=== PATIENT | female | born 1985 | race Caucasian/White ===

== ENCOUNTER 2020-06-25 09:04 | Outpatient (REF) | payer MEDICAID, SELFPAY | END 2020-06-25 09:05 | disposition home or self-care (01) | LOC: HO.LAB 09:04 | PROVIDERS: Visit Provider Internal Medicine | DX: Z20.822 Contact with and (suspected) exposure to COVID-19 (principal) | CPT/HCPCS: 36415; C9803; U0003; U0005 ==

== ENCOUNTER 2020-09-08 15:02 | Outpatient (REF) | payer MEDICAID, SELFPAY | END 2020-09-08 15:03 | disposition home or self-care (01) | LOC: HO.XRAY 15:02 | PROVIDERS: PCP Family Medicine; Visit Provider Family Medicine | DX: Z13.89 Encounter for screening for other disorder (principal) ==

== ENCOUNTER 2020-09-09 09:02 | Outpatient (REF) | payer MEDICAID, SELFPAY ==
--- NOTE | ~2020-09-09 | XR_ITS ---
EXAMINATION: RIGHT WRIST AND RIGHT KNEE. CLINICAL INFORMATION: Pain right wrist and right knee COMPARISON: AP bilateral knee 01/31/2018 TECHNIQUE: Right knee 4 views. Right wrist 4 views FINDINGS: RIGHT WRIST: There is no visible acute fracture or dislocation. Intercarpal joint space is maintained. There is mild sclerosis of the lunate bone suspicious for avascular necrosis. The soft tissues are normal. RIGHT KNEE: Tricompartment joint space is maintained normal. No visible fracture, loose bodies or joint effusion seen. No bony erosive changes. XR/XR wrist RT min 3V IMPRESSION: Mild sclerosis of the lunate bone with minimal deformity, suspicious for avascular necrosis. Is patient on steroids correlate with MRI if patient has pain in this region. Unremarkable right knee exam.
--- NOTE | ~2020-09-09 | XR_ITS ---
EXAMINATION: RIGHT WRIST AND RIGHT KNEE. CLINICAL INFORMATION: Pain right wrist and right knee COMPARISON: AP bilateral knee 01/31/2018 TECHNIQUE: Right knee 4 views. Right wrist 4 views FINDINGS: RIGHT WRIST: There is no visible acute fracture or dislocation. Intercarpal joint space is maintained. There is mild sclerosis of the lunate bone suspicious for avascular necrosis. The soft tissues are normal. RIGHT KNEE: Tricompartment joint space is maintained normal. No visible fracture, loose bodies or joint effusion seen. No bony erosive changes. XR/XR knee RT 4V IMPRESSION: Mild sclerosis of the lunate bone with minimal deformity, suspicious for avascular necrosis. Is patient on steroids correlate with MRI if patient has pain in this region. Unremarkable right knee exam.
== END 2020-09-09 09:03 | disposition home or self-care (01) ==
LOC: HO.XRAY 09:02
PROVIDERS: PCP Family Medicine; Visit Provider Family Medicine
DX: M25.531 Pain in right wrist (principal); M25.561 Pain in right knee
CPT/HCPCS: 73110; 73564

== ENCOUNTER 2020-09-11 20:09 | Emergency (ER) | payer MEDICAID, SELFPAY ==
[2020-09-11 20:13] VITALS: BP 173/99; PULSE 99; RESP 14; TEMP 36.8; O2SAT 97; BMI 43.9
[2020-09-11 20:35] LABS: Glucose Urine UA NEG (NEG); Leukocyte Esterase Urine NEG (NEG); Nitrite Urine NEG (NEG); PH 5.5 (5.0-8.0); Specific Gravity - Urine >= 1.030 (1.005-1.025); Urine Blood TRACE (NEG); Urine Ketones NEG (NEG); Urine Protein 2+ MG/DL (NEG-TRACE)
[2020-09-11 20:36] LABS: Appearance Urine CLEAR; Color Urine YELLOW
[2020-09-11 20:42] LABS: Bacteria Urine TRACE /LPF; RBC Urine 0-2 /HPF (0); Squamous Epithelial Cell Urine 1+ /LPF; WBC Urine 0 /HPF (0-4)
--- NOTE | 2020-09-11 21:08 | ED_ITS ---
HPI - General Adult General Chief complaint: General Medical Stated complaint: BACK PAIN Time Seen by Provider: 09/11/20 21:06 Source: patient Mode of arrival: ambulatory History of Present Illness HPI narrative: 35-year-old female with history of chronic lower back pain who presents with persistent chronic lower back pain that she states is radiating into posterior aspect of bilateral lower extremities without any identified bowel or bladder dysfunction or inability to ambulate. Patient denies any associated fevers, chills, urinary pain/burning/frequency. She is 2 months and experienced high blood pressure during her which has persisted in the period and is currently on labetalol, b.i.d.. Otherwise, patient denies shortness of breath or chest pain. Related Data Allergies Allergy/AdvReac Type Severity Reaction Status Date / Time naproxen [NAPROXEN] Allergy Unknown STOMACH Verified 09/11/20 20:13 PAIN, DIARRHEA, VOMITING Review of Systems Review of Systems: Pertinent positives and negatives as stated in HPI 10 point review of systems is otherwise negative. PMFSH Past Medical History Source: nursing notes reviewed Medical History Hypertension Social History Social History Advance Directives: No Advance Directives Information Provided: Yes Patient : No Physical Exam Vital Signs: Vital Signs: Last Vital Signs Temp 98.2 F 09/11/20 20:13 Pulse 99 09/11/20 20:13 Resp 14 09/11/20 20:13 BP 173/99 H 09/11/20 20:13 Pulse Ox 97 09/11/20 20:13 Body Mass Index 43.9 VITAL SIGNS: Reviewed. GENERAL: Morbidly obese, Well developed, well nourished, mild distress. HEAD: Normocephalic/atraumatic EYES: PERRLA, EOMI OROPHARYNX: no oral lesions noted, posterior pharynx clear NECK: Supple, no adenopathy LUNGS: Normal breath sounds. No adventitious sounds or accessory muscle use. SpO2<97> CARDIOVASCULAR: Regular rate and rhythm without noted murmurs ABDOMEN: Obese, Soft, non-tender, non-distended with bowel sounds. BACK: No midline vertebral tenderness, no CVA tenderness, mild tenderness palpation right> left, straight leg test negative NEUROLOGIC: Alert and oriented x 4. Strength and sensation to light touch were grossly intact x 4. Course Course Course Narrative: 35-year-old female with history and clinical presentation consistent with chronic lower back pain with sciatica/lumbago. Will evaluate for , UTI. Informed by nursing staff that patient has eloped but on review investigations available that were completed there is no evidence of UTI or . Medical Decision Making Lab Data Labs: Lab Results 09/11/20 09/11/20 Range/Units 20:27 20:27 Urine Color YELLOW Urine Appearance CLEAR Urine pH 5.5 (5.0-8.0) Ur Specific [place] >= 1.030 H (1.005-1.025) Urine Protein 2+ H (NEG-TRACE) MG/DL Urine Glucose (UA) NEG (NEG) MG/DL Urine Ketones NEG (NEG) MG/DL Urine Blood TRACE (NEG) Urine Nitrite NEG (NEG) Ur Leukocyte Esterase NEG (NEG) Urine RBC 0-2 (0) /HPF Urine WBC 0 (0-4) /HPF Ur Squamous Epith Cells 1+ /LPF Urine Bacteria TRACE /LPF Urine Test NEGATIVE (NEGATIVE) Discharge Plan Discharge Clinical Impression: Back pain Patient Disposition: Elopement Interventions: ED Discharge Assessment Last Done: 09/11/20 22:55 Discharge Date/Time: 09/11/20 22:55
[2020-09-11 21:32] LABS: UPreg QC Valid YES; Urine Pregnancy NEGATIVE (NEGATIVE)
[2020-09-11] MEDS: Lidocaine 4 % Patch ADH..PATCH 1 PATCH TRANSDERMA (21:51)
--- NOTE | 2020-09-11 22:30 | PC.NURSE ---
Unable to locate pt, ? elopment.
== END 2020-09-11 22:55 | disposition left against medical advice (07) ==
PROVIDERS: Student in an Organized Health Care Education/Training Program; Emergency Provider Emergency Medicine; PCP Family Medicine
DX: M54.42 Lumbago with sciatica, left side (principal); M54.41 Lumbago with sciatica, right side; I10 Essential (primary) hypertension
CPT/HCPCS: 36415; 81001; 81025; 99283

== ENCOUNTER 2020-09-24 08:24 | Outpatient (REF) | payer MEDICAID, SELFPAY ==
--- NOTE | 2020-09-24 08:28 | EMG_ITS ---
Right median and ulnar motor and sensory studies were performed. Right radial sensory study was performed and paraspinal muscles were tested with a needle. IMPRESSION: This study did not reveal any significant neurological abnormality. Right Jan-Marlee anastomosis was noted, which was a normal variant. MD FAB Lemus/LÁZAROL / [id number]
== END 2020-09-24 08:25 | disposition home or self-care (01) ==
LOC: HO.NEURO 08:24
PROVIDERS: Visit Provider Family Medicine
DX: M25.531 Pain in right wrist (principal)
CPT/HCPCS: 95886; 95909

== ENCOUNTER 2020-10-07 09:08 | Outpatient (REF) | payer MEDICAID, SELFPAY | END 2020-10-07 09:09 | disposition home or self-care (01) | LOC: HO.HOSX 09:08 | PROVIDERS: Visit Provider Orthopaedic Surgery | DX: Z13.89 Encounter for screening for other disorder (principal) ==

== ENCOUNTER → 2020-11-20 10:16 | Outpatient (BNVA) | payer MEDICAID, SELFPAY | PROVIDERS: PCP Family Medicine; Visit Provider Nurse Practitioner Family | DX: M53.3 Sacrococcygeal disorders, not elsewhere classified (principal) | CPT/HCPCS: 99212 ==

== ENCOUNTER 2021-02-02 06:34 | Outpatient (REF) | payer MEDICAID, SELFPAY ==
--- NOTE | ~2021-02-02 | FL_ITS ---
EXAMINATION: XR FLUOROSCOPY WITH IMAGES CLINICAL INFORMATION: Sacrococcygeal disorder COMPARISON: None. TECHNIQUE: Fluoroscopy performed by Sudha Saavedra NP. Fluoroscopy time: 0.1 minutes DAP: 3 Gycm2 Images: 1 FINDINGS: Single image demonstrates needle placement and contrast injection over the left inferior sacroiliac joint. FL/FL guidance in treatment room IMPRESSION: Fluoroscopic guidance for left sacroiliac joint injection.
== END 2021-02-02 06:35 | disposition home or self-care (01) ==
LOC: HO.RADIR 06:34
PROVIDERS: Visit Provider Anesthesiology
DX: M53.3 Sacrococcygeal disorders, not elsewhere classified (principal)
CPT/HCPCS: 27096; J3300; Q9967

== ENCOUNTER 2021-02-08 08:14 | Emergency (ER) | payer MEDICAID, SELFPAY ==
--- NOTE | ~2021-02-08 | XR_ITS ---
EXAMINATION: XR KNEE, RIGHT CLINICAL INFORMATION: Trauma, pain COMPARISON: Radiographs right knee 09/09/2020. TECHNIQUE: Four views of the right knee. FINDINGS: There is no fracture or dislocation. Bony mineralization is normal. No visible suprapatellar effusion. Hoffa's fat pad appears normal. No joint narrowing or erosive changes. XR/XR knee RT 3V IMPRESSION: Normal right knee.
[2021-02-08 08:16] VITALS: BP 185/101; PULSE 96; RESP 18; TEMP 36.4; O2SAT 96; BMI 46.3
--- NOTE | 2021-02-08 09:20 | ED_ITS ---
HPI - Extremity Injury (Lower) General Chief Complaint: Extremity Injury, Lower Stated Complaint: knee pain Time Seen by Provider: 02/08/21 09:08 Source: patient Mode of arrival: ambulatory Limitations: no limitations History of Present Illness HPI Narrative: 35 yo female pmhx of HTN presents to the ED with right knee pain since yesterday. She states she is moving and she was stepping onto a [employer] trailer which was pretty high up she states she felt like her right knee gave out and she thought she heard a tearing noise. She reports that pain is worse with bearing weight and ambulation and better at rest. She also states it hurts to fully straighten her right knee. Her pain is like a 6/10 with ambulation. She notes mild swelling to the right knee. She denies fevers, chills, paresthesias, tingling, fall, SOB, CP complaint: knee injury (right knee pain ) Onset (ago): day(s) (2) Place: home Severity: moderate Severity scale (1-10): 6 Relieving factors: immobilization Exacerbating factors: weight bearing and movement Associated symptoms: other (tearing noise?) Other symptoms: none Related Data Home Medications Medication Instructions Recorded Confirmed labetalol 200 mg tablet 200 mg PO BID tab 11/20/20 11/20/20 Allergies Allergy/AdvReac Type Severity Reaction Status Date / Time naproxen [NAPROXEN] Allergy Unknown STOMACH Verified 02/02/21 10:50 PAIN, DIARRHEA, VOMITING Review of Systems Review of Systems: Yes all other systems are reviewed and are negative Constitutional: Constitutional: Reports no additional constitutional com plaints, Denies body ache(s), Denies chills, Denies fever(s), Denies headache(s) and Denies weakness ENT: Reports system reviewed and no additional complaints, except as documented, Denies dizziness, Denies headache(s) and Denies neck pain Cardiovascular: Cardiovascular: Reports no additional cardiovascular complai nts, Denies chest pain, Denies leg edema and Denies dyspnea Respiratory: Respiratory: Reports no additional respiratory complaints, Denies cough and Denies dyspnea Gastrointestinal: Gastrointestinal: Reports no additional gastrointestinal complaints, Denies abdominal pain, Denies diarrhea, Denies nausea and Denies vomiting Genitourinary: Genitourinary: Reports no additional female genitourinary complaints and Denies urinary incontinence Musculoskeletal: Musculoskeletal: Reports no additional musculoskeletal complaints, Denies back pain, Reports arthralgias (right knee), Reports joint swelling (right knee), Denies neck pain, Denies numbness and Denies tingling Integumentary/Breasts: Skin/Breast: Reports system reviewed and no additional complaints, except as docu and Denies rash Neurologic: Reports system reviewed and no additional complaints, except as documented, Denies Abnormal speech present, Denies dizziness, Denies headache(s), Denies numbness, Denies tingling and Denies weakness [facility] Past Medical History Attestation statement: The following information was validated with the patient. Source: old records reviewed and nursing notes reviewed Medical History Hypertension Social History Social History Advance Directives: No Patient : No Physical Exam 2 Vital Signs: Vital Signs: Last Vital Signs Temp 97.5 F 02/08/21 08:16 Pulse 96 02/08/21 08:16 Resp 18 02/08/21 08:16 BP 185/101 H 02/08/21 08:16 Pulse Ox 96 02/08/21 08:16 Body Mass Index 46.3 Const: General: cooperative, healthy appearing, comfortable and no acute distress Orientation/consciousness: patient oriented x3 Limitations: no limitations HENMT: Head: Yes normal to inspection Ears: hearing grossly normal bilaterally General nose exam: Normal external nose present Face and sinus: Yes normal facial exam Mouth: Normal oral and palatal mucosa present Throat: Yes posterior oropharynx normal Eyes: General: appearance normal, both eyes and all related structures Pupils: Equal, round and reactive pupils present Neck: Neck: Yes normal visual inspection Chest: Chest palpation & inspection: normal inspection of the chest Resp: Effort & Inspection: normal respiratory effort Auscultation: clear to auscultation bilaterally Cardio: Rate: regular rate Rhythm: regular rhythm Peripheral pulses: Peripheral pulses 2+ throughout GI: Inspection: Yes normal to inspection Palpation (GI): Soft to palpation and nontender Auscultation: normal bowel sounds Back/Spine/Pelvis: Thoracic/Lumbar Spine: thoracic and lumbar spine normal to inspection Skin: General skin exam: no rashes or lesions noted Neuro: General: patient oriented x3, no focal motor deficits and normal sensation to monofilament Cranial nerves: Yes Equal, round and reactive pupils present Cognition (Neuro): normal cognition Speech: No Abnormal speech present Gait exam (Neuro): Normal gait present Motor exam (neuro): 5/5 motor strength present throughout Extrem: Other: Positive valgus stress to right knee. Negative anterior, posterior, apley, varus. General: Yes full ROM (painful ), Yes capillary refill normal, Yes no joint enlargement (slight swelling noted to right knee), Yes no pedal edema, Yes no calf tenderness, No calf tenderness, Yes edema (right knee), Yes Limp noted, No pedal edema and No venous stasis dermatitis Course Course Course Narrative: 35 yo female with pmhx of HTN presents to the ED with right sided knee pain X2 days, she states she was stepping onto a [employer] truck and she felt like her right knee gave out she mentions she heard something tear. She did not fall but she immediately started feeling 6/10 pain and her knee began to swell. Upon physical examination patient is able to ambulate with a limp. She denies pain with palpation. Positive valgus stress to right knee. Negative anterior, posterior, apley, varus test. No signs of infection overlying the area patient is afebrile unlikely septic joint. She is currently hypertensive at this time, however, she has not taken her BP medications. She states she will take them when she gets home. Reevaluation(s) Reevaluation #1: Upon re-evaluation, patient is feeling better after Toradol.Th is is likley a right knee sprian she is safe for d.c home with and LUKE wrap, crutches. She has been educated on RICE. Time: 09:55 MDM - Extremity Injury (Lower) MDM Narrative Medical decision making narrative: This is likely a knee sprain based off of the mechanism of injury. However an Xray of the right knee has been ordered to rule out fractures. There is no overlying callor or erythema, the patient has been afebrile, unlikely this is an infectious process. Knee x-ray shows no fractures, and shows no effusion. Patient is safe for discharge home, with follow-up with PCP. Medical Records Attestation: I reviewed the patient's medical records. Lab Data Attestation: I reviewed the patient's lab results. Imaging Data Right knee xray: Attestation: I personally reviewed and interpreted this imaging study as follows: Radiologist's impression: FINDINGS: There is no fracture or dislocation. Bony mineralization is normal. No visible suprapatellar effusion. Hoffa's fat pad appears normal. No joint narrowing or erosive changes.? XR/XR knee RT 3V IMPRESSION: Normal right knee. Procedures Orthopedic Splinting/Casting Injury #1: Side: right Upper Extremity Immobilizer: Luke wrap Other Orthopedic Equipment: crutches Discharge Plan Discharge Clinical Impression: Knee sprain Qualifiers: Encounter type: initial encounter Involved ligament of knee: unspecified ligament Laterality: right Qualified Code(s): S83.91XA - Sprain of unspecified s ite of right knee, initial encounter Patient Disposition: Home, Self-Care Instructions: Knee Sprain (ED), Crutch Instructions (ED), How to Use an Elastic Bandage (ED), Swollen Knee Joint (ED), R.I.C.E. Treatment (ED) Additional Instructions: Follow up with your PCP You can take ibuprofen for pain Your X-ray showed no fracture Follow up with Orthopedics if no improvement in 2 weeks. Return to the emergency department with new or worsening symptoms Prescriptions: No Action labetalol 200 mg tablet 200 mg PO BID RF: 0 Referrals: Della Viera DO [Primary Care Provider] - 2 days Stand Alone Forms: Work/School Release Interventions: ED Discharge Assessment Last Done: 02/08/21 10:17 Discharge Date/Time: 02/08/21 10:18
[2021-02-08] MEDS: Ketorolac Tromethamine 15 MG/ML VIAL 30 MG IM (09:35)
== END 2021-02-08 10:18 | disposition home or self-care (01) ==
PROVIDERS: Emergency Provider Emergency Medicine; PCP Family Medicine
DX: S83.91XA Sprain of unspecified site of right knee, initial encounter (principal); M25.561 Pain in right knee; X50.1XXA Overexertion from prolonged static or awkward postures, initial encounter; Y93.9 Activity, unspecified; Y92.9 Unspecified place or not applicable; Y99.9 Unspecified external cause status; Z79.899 Other long term (current) drug therapy
CPT/HCPCS: 29505; 73562; 96372; 99283; 99284; J1885

== ENCOUNTER → 2021-06-01 15:10 | Outpatient (BNVA) | payer MEDICAID, SELFPAY | PROVIDERS: PCP Family Medicine; Visit Provider Nurse Practitioner Family | DX: M79.18 Myalgia, other site (principal); M54.2 Cervicalgia | CPT/HCPCS: 20552; 20553; 99212 ==

== ENCOUNTER → 2021-10-01 10:49 | Outpatient (BNVA) | payer MEDICAID, SELFPAY | PROVIDERS: PCP Family Medicine; Visit Provider Nurse Practitioner Family | DX: M79.18 Myalgia, other site (principal); M54.2 Cervicalgia | CPT/HCPCS: 20553; 99212; J2795; J3300 ==

== ENCOUNTER → 2021-12-01 13:01 | Outpatient (REF) | payer MEDICAID, SELFPAY ==
--- NOTE | 2021-12-01 13:07 | ECG_ITS ---
Hook-up date: 2021-12-01 12:23:00 Duration: 42:06:00 Test Indications: PALPITATIONS Medications: 455503 QRS complexes * Ventricular ectopics which represent % of total QRS comp. 5 Supraventricular ectopics which represent <1 % of total QRS comp. * Paced QRS complexs which represent % of total QRS comp. VENTRICULAR ECTOPY * Isolated * Bigeminal Cycles * Couplets * Runs * Beats in Runs * Beats LONGEST at * BPM at :: -- * Beats FASTEST at * BPM at :: -- SUPRAVENTRICULAR ECTOPY 3 Isolated 1 Couplets 0 Runs 0 Beats in Runs * Beats LONGEST at * BPM at :: -- * Beats FASTEST at * BPM at :: -- HEART RATES 38 MIN at 04:09:04 2021-12-02 86 AVG 127 MAX at 12:13:01 2021-12-02 LONGEST RR 2.8720 secs at 22:11:54 2021-12-01 S-T LEVELS Channel 1 - 128 mm at 12:23:00 2021-12-01 - 128 mm at 12:23:00 2021-12-01 Channel 2 - 128 mm at 12:23:00 2021-12-01 - 128 mm at 12:23:00 2021-12-01 Channel 3 - 128 mm at 03:14:21 -- - 128 mm at 03:14:21 Underlying rhythm is sinus; Averge ventricular rate 86/min; range 38-127/min; No significant ectopy, tachy or neftaly arrhythmias; Sleeptime pauses, longest 2.8sec; Patient did not report any symptoms in the diary Referred By: Della Viera Overread By: UMAIR MARROQUIN
== END ==
LOC: HO.CARD 13:01
PROVIDERS: PCP Family Medicine; Visit Provider Family Medicine
DX: R00.2 Palpitations (principal)
CPT/HCPCS: 93225; 93226

== ENCOUNTER 2022-01-25 06:05 | Outpatient (REF) | payer MEDICAID, SELFPAY ==
--- NOTE | ~2022-01-25 | FL_ITS ---
EXAMINATION: XR FLUOROSCOPY WITH IMAGES CLINICAL INFORMATION: M54.2 - Cervicalgia COMPARISON: None. TECHNIQUE: Fluoroscopy performed by Dr. Ralph Rubio. Fluoroscopy time: 0.5 minutes. Cumulative Dose: 5.89 mGy. DAP: 1.60 Gy-cm2. Images: 4. FINDINGS: There are spinal needles overlying the right lateral masses cervical spine approximately levels of C4, C5, and C6. There is contrast in the paraspinal soft tissues and nerve sheaths. No visible vascular communication. FL/FL guidance in treatment room IMPRESSION: Fluoroscopy for pain management procedure.
== END 2022-01-25 06:06 | disposition home or self-care (01) ==
LOC: HO.RADIR 06:05
PROVIDERS: Visit Provider Anesthesiology
DX: M47.812 Spondylosis without myelopathy or radiculopathy, cervical region (principal); M54.2 Cervicalgia; M79.18 Myalgia, other site; M53.3 Sacrococcygeal disorders, not elsewhere classified
CPT/HCPCS: 64490; 64491

== ENCOUNTER 2022-03-03 13:23 | Day surgery (SDC) | payer MEDICAID, SELFPAY ==
--- NOTE | 2022-03-02 09:42 | P.CONAN_ITS ---
Documented by User: Veronica Pennington NP 03/02/22 09:42 HPI - Anesthesia Eval Consult details Narrative: 36yo F for Right Cervical RFA of C4-C5-C6 medial branch PMFSH Active Problems Active Problems: All Active Problems (Updated 02/24/22 @ 14:19 by Toya Arrington, RN) Sacroiliac joint pain (Acute) Myofascial pain (Acute) Cervicalgia (Acute) Spondylosis of cervical region without myelopathy or radiculopathy (Acute) Past Medical History Medical History (Updated 02/24/22 @ 14:19 by Toya Arrington, RN) Headache Hypertension Kienb?ck's disease Migraines Obesity Palpitations Surgical History Surgical History (Updated 03/03/22 @ 14:03 by Marjorie Michael RN) History of tubal ligation Social History Social History Patient Tobacco Use Status: Never used Tobacco Second Hand Smoke Exposure: No Use of substances other than those prescribed or required for medical reasons: No Are you DNR?: No Advance Directives: No Advance Directives Information Provided: Yes Advance Directives on File: No Patient : No Meds Allergies Allergy/AdvReac Type Severity Reaction Status Date / Time naproxen [NAPROXEN] Allergy Unknown STOMACH Verified 02/02/22 13:57 PAIN, DIARRHEA, VOMITING Home Medications Medication Instructions Recorded Confirmed Last Taken Type labetalol 200 mg tablet 200 mg PO BID 11/20/20 02/24/22 03/03/22 History acetaminophen 650 mg 650 mg PO Q8H PRN Pain 06/01/21 02/24/22 Unknown History tablet,extended release (Pain Relief (acetaminophen)) methocarbamol 750 mg tablet 750 mg PO Q8H PRN Muscle Pain 06/01/21 02/24/22 Unknown History oxybutynin chloride 5 mg 5 mg PO DAILY 10/01/21 02/24/22 Unknown History tablet,extended release 24 hr Exam Exam Date and Time: March 02, [id number] Assessment and Plan Assessment Anesthesia Assessment: Chart Reviewed Documented by User: Karen Luque MD 03/03/22 15:10 PMFSH Active Problems Active Problems: All Active Problems (Updated 02/24/22 @ 14:19 by Toya Arrington, RN) Sacroiliac joint pain (Acute) Myofascial pain (Acute) Cervicalgia (Acute) Spondylosis of cervical region without myelopathy or radiculopathy (Acute) Increased BMI 43.9 Snores but denies SNOW Past Medical History Medical History (Updated 02/24/22 @ 14:19 by Toya Arrington, RN) Headache Hypertension Kienb?ck's disease Migraines Obesity Palpitations Family History Family history of problems with anesthesia: No Surgical History Surgical History (Updated 03/03/22 @ 14:03 by Marjorie Michael, MARK) History of tubal ligation History of Problems with Anesthesia: No Social History Social History Patient Tobacco Use Status: Never used Tobacco Second Hand Smoke Exposure: No Use of substances other than those prescribed or required for medical reasons: No Are you DNR?: No Advance Directives: No Advance Directives Information Provided: Yes Advance Directives on File: No Patient : No Meds Allergies Allergy/AdvReac Type Severity Reaction Status Date / Time naproxen [NAPROXEN] Allergy Unknown STOMACH Verified 02/02/22 13:57 PAIN, DIARRHEA, VOMITING Home Medications Medication Instructions Recorded Confirmed Last Taken Type labetalol 200 mg tablet 200 mg PO BID 11/20/20 02/24/22 03/03/22 History acetaminophen 650 mg 650 mg PO Q8H PRN Pain 06/01/21 02/24/22 Unknown History tablet,extended release (Pain Relief (acetaminophen)) methocarbamol 750 mg tablet 750 mg PO Q8H PRN Muscle Pain 06/01/21 02/24/22 U nknown History oxybutynin chloride 5 mg 5 mg PO DAILY 10/01/21 02/24/22 Unknown History tablet,extended release 24 hr Exam Height,Weight and Vital Signs: Height 5 ft 2 in Weight 108.862 kg Vital Signs Temp Pulse Resp BP Pulse Ox O2 Del Method 03/03/22 14:13 97.1 F 86 16 155/105 H 100 Room Air Airway Mallampati Class: II TM Dist: >3cm Neck ROM: Full Loose/Missing/Broken Teeth: No (Denies broken or loose teeth ) Heart: RRR Lungs: CTAB Assessment and Plan Final Anesthetic Review Family History of Problems with Anesthesia: No History of Problems with Anesthesia: No NPO: Yes ASA Class: III Final Preanesthetic Review: No Changes in Pt Med Stat, Meds/Allgs Chart Reviewed, Consent Obtained/Reviewed and Anes Risks/Benef Reviewed Patient Risk: Intermediate Procedure Risk: Intermediate Assessment/Block/Sedation in SS: Assess/Block/Sedation-SS Anesthetic Plan Anesthetic Plan: MAC: Disposition: Standard PACU
--- NOTE | ~2022-03-03 | FL_ITS ---
EXAMINATION: XR FLUOROSCOPY WITH IMAGES CLINICAL INFORMATION: Cervical RFA right cervical medial branch RFA. COMPARISON: MR cervical spine 01/22/2020 TECHNIQUE: Fluoroscopy performed by Dr. Ralph Rubio. Fluoroscopy time: 0.6 minutes. Cumulative Dose: 27.1 mGy. DAP: 4.76 Gycm2. Images: 1. FINDINGS: There are 3 electrodes overlying the right lateral masses cervical spine approximately C3, C4, and C5. FL/FL guidance in OR IMPRESSION: Fluoroscopy for pain management procedure.
--- NOTE | 2022-03-03 09:31 | MHC.SHP ---
Pre-Procedural Eval Section A Date of Service: 03/03/22 The patient is an INPATIENT: No Changes since office visit: Yes Patient answered all questions The History & Physical has been completed within 30 days and I have reviewed it.: No Section B Chief Complaint: Spondylosis without myelopathy or radiculopathy, c Details of Present Illness: ABOVE Relevant Family History (Specify if Yes): No Relevant Social History: None Present Medications: see Short Stay Collaborative assessment Medical History: No relevant PMH History of Previous Operations: No relevant previous surgery Allergies: Allergies Allergy/AdvReac Type Severity Reaction Status Date / Time naproxen [NAPROXEN] Allergy Unknown STOMACH Verified 02/02/22 13:57 PAIN, DIARRHEA, VOMITING Review of Systems Sugical H&P ROS: Negative: Constitution, Cardiovascular, Respiratory, Neurological, Psychiatric, Hem-Onc, Allergic/Immunologic, Gastrointestinal, Genitourinary, Musculoskeletal, Integumentary, Endocrine and Eyes/Ears/Nose/Throat Exam Surgical H&P Exam: Normal: HEENT, Normal: Heart, Normal: Lungs, Normal: Extremities, Normal: Abdomen, Normal: Skin and Normal: Neurological Plan Diagnosis/Plan: Unchanged I have reviewed the history and physical and performed a pertinent physical examination on my patient. No changes have occurred unless specified.
[2022-03-03 14:03] VITALS: BMI 43.9
--- NOTE | 2022-03-03 14:05 | PC.NURSE ---
patient stated history of tubal ligation surgery. Urine not collected per protocol. Dr. Luque, anesthesiologist aware.
[2022-03-03 14:13] VITALS: BP 155/105; PULSE 86; RESP 16; TEMP 36.2; O2SAT 100
[2022-03-03] MEDS: Lactated Ringers 1,000 ML 100 ML IVCONT (14:19)
--- NOTE | 2022-03-03 15:43 | P.BOP_ITS ---
Brief Operative Note Date of Service: 03/03/22 Pre-op diagnosis: spondylosis cervical spine Post-op diagnosis: same Procedure: right C4- C5- C6 MB RFA. Surgeon: Ralph Rubio MD Was an Shovel Engineer used for this Procedure?: No Estimated blood loss (mL): 0 Condition: stable Disposition: PACU
[2022-03-03 15:47] VITALS: BP 150/103; PULSE 86; RESP 15; TEMP 36.8; O2SAT 96
--- NOTE | 2022-03-03 16:00 | W.PM.OPN ---
Operative Note Operative Note Date of Service: 03/03/22 Narrative: Cervical MB RFA Informed consent was explained to the patient. All questions were explained and answered.? The patient was taken inside the operating room where the patient was positioned prone on the operating table with the pillow under the chest and a small head support. ASA monitors were applied and the patient was minimally sedated. Time-out was performed delineating correct site, side, the nature of the procedure, patient's allergy, All operating room staff was participating in OR time-out procedure. The posterior neck was prepped with ChloraPrep and draped with sterile towels.? Sterilely draped C-arm was brought over the operating field and square picture of C4- C5 and C6? vertebrae? were delineated on the screen.? Point of interest were delineated as on the right lateral? masses of the above mentioned vertebrae. The waste line of the lateral masses was chosen as the final needle target. The projection of the point of interest to the skin were injected with the small amount of local anesthetic lidocaine 2% 1-1.5 cc.? After that18 gauge 100 mm radiofrequency cannulas were driven to the point of interest in tunnel vision fashion. ?After needles gently contacting the bone at the point of interests the lateral view was obtained for each cannula and it? was adjusted to be in the centroid of the lateral mass paralelloid projection. Stylets were removed from the cannulas and nitinol electrodes were inserted into the cannulas. Testing was performed at each level during which the patient reported somatic stimulation on C6 level the position of the needle was adjusted until there were no stimulation of the somatic nerve. after that the stimulation was repeated and the patient did not report any motor stimulation in the arm, forearm, or hand. The electrodes were removed; the cannulas were injected with small amount of lidocaon 1% ropivacaine 0.5%mixture 1:1-1cc mixed with trace amount of kenalog. The electrodes were reinserted and after 90 seconds of wait? RF energy was applied at the temperature of 89 degrees Celsius for 90 seconds. ?Upon completion of the injections the cannulas were removed , Sterile band aids were applied , patient was taken outside of the operating room to recovery room where recovered uneventfully.? The patient went home without immediate complications.
[2022-03-03 16:08] VITALS: BP 149/69; PULSE 82; RESP 16; O2SAT 97
[2022-03-03] MEDS: Acetaminophen 1,000 MG/100 ML PIGGYBACK 400 MG IV (16:08)
[2022-03-03] MEDS: oxyCODONE HCl Immed Release 5 MG TABLET PO (16:14)
[2022-03-03] MEDS: ondansetron HCL 4 MG/2 ML VIAL IVPUSH (16:16)
== END 2022-03-03 17:00 | disposition home or self-care (01) ==
PROVIDERS: PCP Family Medicine; Visit Provider Anesthesiology
PROC: (CPT 64633; principal; 2022-03-03 14:50)
DX: M47.812 Spondylosis without myelopathy or radiculopathy, cervical region (principal); M54.2 Cervicalgia; I10 Essential (primary) hypertension; Z79.899 Other long term (current) drug therapy; Z88.8 Allergy status to other drugs, medicaments and biological substances
CPT/HCPCS: 64633; 64634; J0131; J2250; J2405; J2795; J3010; J3300; Q9965

== ENCOUNTER → 2022-09-05 12:56 | Outpatient (BNVA) | payer MEDICAID, SELFPAY | PROVIDERS: PCP Family Medicine; Visit Provider Anesthesiology | DX: M47.812 Spondylosis without myelopathy or radiculopathy, cervical region (principal); M54.2 Cervicalgia | CPT/HCPCS: 99212 ==

== ENCOUNTER 2023-01-10 12:14 | Outpatient (REF) | payer MEDICAID, SELFPAY ==
--- NOTE | ~2023-01-10 | XR_ITS ---
EXAMINATION: XR KNEE, RIGHT CLINICAL INFORMATION: Chronic knee pain. COMPARISON: 02/08/2021 TECHNIQUE: 3 views of the right knee. FINDINGS: No fracture or joint effusion. Alignment is anatomic. Joint spaces are maintained. No abnormal soft tissue calcification. XR/XR knee RT 3V IMPRESSION: Normal right knee.
== END 2023-01-10 12:15 | disposition home or self-care (01) ==
LOC: HO.HHCX 12:14
PROVIDERS: Visit Provider Family Medicine
DX: M25.561 Pain in right knee (principal)
CPT/HCPCS: 73562

== ENCOUNTER → 2023-02-08 13:57 | Outpatient (REF) | payer MEDICAID, SELFPAY | LOC: HO.CARD 13:57 | PROVIDERS: PCP Family Medicine; Visit Provider Family Medicine | DX: I45.9 Conduction disorder, unspecified (principal) | CPT/HCPCS: 93306; Q9957 ==

== ENCOUNTER → 2023-02-08 14:00 | Outpatient (BNV) | payer MEDICAID, SELFPAY | PROVIDERS: PCP Family Medicine; Visit Provider Internal Medicine | DX: I34.81 Nonrheumatic mitral (valve) annulus calcification (principal); I35.8 Other nonrheumatic aortic valve disorders | CPT/HCPCS: 93306 ==

== ENCOUNTER 2023-04-07 11:03 | Outpatient (REF) | payer MEDICAID, SELFPAY ==
--- NOTE | ~2023-04-07 | XR_ITS ---
EXAMINATION: XR BILATERAL KNEES CLINICAL INFORMATION: Knee pain. COMPARISON: Right knee 02/08/2021 and 09/09/2020. Standing views of both knees on 11/21/2017. TECHNIQUE: Single standing view of both knees with 2 additional views of each knee. FINDINGS: Standing views demonstrate mild narrowing of the medial compartments bilaterally, right greater than left. These findings have progressed slightly when compared to 01/31/2018. No chondrocalcinosis. No fractures. A small right joint effusion is present. No left joint effusion is seen. XR/XR knee LT 2V IMPRESSION: Mild narrowing of the medial compartments bilaterally, right greater than left. Small right joint effusion.
--- NOTE | ~2023-04-07 | XR_ITS ---
EXAMINATION: XR BILATERAL KNEES CLINICAL INFORMATION: Knee pain. COMPARISON: Right knee 02/08/2021 and 09/09/2020. Standing views of both knees on 11/21/2017. TECHNIQUE: Single standing view of both knees with 2 additional views of each knee. FINDINGS: Standing views demonstrate mild narrowing of the medial compartments bilaterally, right greater than left. These findings have progressed slightly when compared to 01/31/2018. No chondrocalcinosis. No fractures. A small right joint effusion is present. No left joint effusion is seen. XR/XR knee RT 2V IMPRESSION: Mild narrowing of the medial compartments bilaterally, right greater than left. Small right joint effusion.
--- NOTE | ~2023-04-07 | XR_ITS ---
EXAMINATION: XR BILATERAL KNEES CLINICAL INFORMATION: Knee pain. COMPARISON: Right knee 02/08/2021 and 09/09/2020. Standing views of both knees on 11/21/2017. TECHNIQUE: Single standing view of both knees with 2 additional views of each knee. FINDINGS: Standing views demonstrate mild narrowing of the medial compartments bilaterally, right greater than left. These findings have progressed slightly when compared to 01/31/2018. No chondrocalcinosis. No fractures. A small right joint effusion is present. No left joint effusion is seen. XR/XR knee standing BI IMPRESSION: Mild narrowing of the medial compartments bilaterally, right greater than left. Small right joint effusion.
== END 2023-04-07 11:04 | disposition home or self-care (01) ==
LOC: HO.HOSX 11:03
PROVIDERS: Visit Provider Orthopaedic Surgery
DX: M25.561 Pain in right knee (principal); M25.562 Pain in left knee; M25.461 Effusion, right knee
CPT/HCPCS: 20610; 73560; 73565; 99202; J0665; J1100

== ENCOUNTER 2023-04-07 11:51 | Outpatient (AMB) | payer MEDICAID, SELFPAY ==
--- NOTE | 2023-04-07 12:56 | MHC.OFFVIS ---
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 Patient reports that she has had ongoing bilateral knee pain. right knee is worse than the left. She has tried and failed physical therapy. No injection of surgical history. 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 She has pain with daily activity, worse with walking, kneeling, or using stairs. She found no relief from PT and denies any prior injections. [facility] Medical History (Updated 04/07/23 @ 14:35 by Bruce Oswald MD) Obesity Palpitations Kienb?ck's disease Migraines Headache Hypertension Surgical History (Updated 03/03/22 @ 14:03 by Marjorie Michael RN) History of tubal ligation Social History Patient Tobacco Use Status: Never used Tobacco Second Hand Smoke Exposure: No Review of Systems Const All systems reviewed & are unremarkable except as noted in HPI and below Physical Exam Const General: no acute distress, alert and awake Orientation/consciousness: patient oriented x3 HEENT Head: Yes normocephalic and Yes atraumatic Eyes EOM: EOMs intact bilaterally Resp Effort & Inspection: normal respiratory effort and able to speak in complete sentences Cardio Jugular venous distension: no JVD Skin General skin exam: turgor normal Rashes: no rashes Neuro General: patient oriented x3 Extrem Other: Bilateral Knees: A retropatellar tenderness to palpation right knee with a 1+ effusion. No medial joint line pain. Stable to varus and valgus stress. Negative anterior drawer. Full range of motion limited only by discomfort in hyperflexion due to the effusion. Psych Appearance: grossly normal Affect: normal affect Attitude: cooperative Office Procedures Joint Injection/Drain Joint Injection/Drain Details: Injected 1 mL of Decadron and 3 mL 1% lidocaine and 3 mL of 0.25% Marcaine. Site was prepped using aseptic technique. Patient tolerated the procedure well. Primary Site: right knee Approach Used: anterolateral Coding - Large joint Procedure code (CPT) selection complete Results Reviewed Results Reviewed: I personally reviewed relevant radiographs Radiographs are notable for mild to moderate patellar lateralization with early OA changes on the right Assessment & Plan Assessment & Plan (1) BMI 40.0-44.9, adult: Code(s): Z68.41 - Body mass index [BMI] 40.0-44.9, adult Plan: Current BMI 43.3. Discussed weight management. (2) Knee effusion, right: Code(s): M25.461 - Effusion, right knee Plan: This is a 37-year-old female with a right knee effusion and retropatellar tenderness to palpation. I injected her right knee and ordered an MRI. Orders: Orders XR knee standing BI 04/07/23 M25.569 - Pain in unspecified knee XR knee RT 2V 04/07/23 M25.569 - Pain in unspecified knee XR knee LT 2V 04/07/23 M25.569 - Pain in unspecified knee MR knee RT wo con 04/07/23 M25.461 - Effusion, right knee Coding Level of Care Code New Pt Level 4 (02668) Diagnoses BMI 40.0-44.9, adult Z68.41 Knee effusion, right M25.461 CPT Codes Coding - Large joint: 98372 - Large joint ([id number])
== END 2023-04-07 15:19 | disposition home or self-care (01) ==
PROVIDERS: PCP Family Medicine; Visit Provider Orthopaedic Surgery
DX: M25.561 Pain in right knee (principal); M25.461 Effusion, right knee; M25.562 Pain in left knee
CPT/HCPCS: 20610; 99204

== ENCOUNTER 2023-04-17 10:15 | Outpatient (AMB) | payer MEDICAID, SELFPAY ==
--- NOTE | 2023-04-17 10:19 | A.OFFVIS_ITS ---
Intake Vital Signs 04/17/23 10:24 Height 5 ft 2 in Weight 241 lb BMI 44.1 BP 130/96 H Blood Pressure Location Lt brachial Position Sitting Respiration 16 Pulse 94 Pulse Source Pulse Oximeter Pulse Oximetry (%) 98 Oxygen Delivery Method Room Air Intake Visit Reasons: Follow Up (Last Seen 09/05/22) Allergies naproxen [NAPROXEN] Allergy (Unknown, Verified 04/17/23 10:25) STOMACH PAIN, DIARRHEA, VOMITING HPI Follow Up (Last Seen 09/05/22) HPI Details Margarito is back in my office after the significant period of absence again. She was seen in September of this year and we plan to do right-sided Sprint PNS for her. Unfortunately due to some family emergency he had to cancel the appointment. I will schedule her for Sprint PNS again. Prior: Came to my office on 09/05/2022 after a long period of absence.. She was lost for the follow-up after radiofrequency ablation of the right C4-C5 C6 medial branches. The procedure was performed 03/03/2022. She reported that her pain for the 1st 2 months was significantly reduced. However after that her pain started to climb up. And by the June she started to feel significant pain in her neck again. This is too short a time interval to consider repeat E holm of the radiofrequency ablation of C4-C5 C6 medial branches a practical approach to treat her neck pain. We discussed possibility of treating her with sprint PNS right C5 versus Nevro SCS a trial. 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 She is more interested in sprint procedure. I told her that we certainly can try. I will schedule her for right-sided C5 sprint PNS. Follow-up after the procedure [facility] Medical History (Updated 04/07/23 @ 14:35 by Bruce Oswald MD) Obesity Palpitations Kienb?ck's disease Migraines Headache Hypertension Surgical History (Updated 03/03/22 @ 14:03 by Marjorie Michael RN) History of tubal ligation Social History Patient Tobacco Use Status: Never used Tobacco Second Hand Smoke Exposure: No Review of Systems Const All systems reviewed & are unremarkable except as noted in HPI and below ENT Denies Normal hearing present Neuro Denies Normal hearing present, Denies Abnormal speech present and Denies confusion Psych Denies confusion Physical Exam Vital Signs: Last Vital Signs Pulse 94 04/17/23 10:24 Resp 16 04/17/23 10:24 BP 130/96 H 04/17/23 10:24 Pulse Ox 98 04/17/23 10:24 Oxygen Delivery Method Room Air 04/17/23 10:24 BMI result Body Mass Index 44.1 Const General: No confusion Nutritional Appearance: obese Orientation/consciousness: No confusion HEENT Head: Yes normocephalic and Yes atraumatic Ears: hearing grossly normal bilaterally Eyes General: appearance normal, both eyes and all related structures Eyelids: Yes eyelids normal Pupils: Equal, round and reactive pupils present EOM: EOMs intact bilaterally Neck Neck: Yes normal visual inspection and Yes no JVD Resp Effort & Inspection: normal respiratory effort, able to speak in complete sentences and no audible wheezes Cardio Jugular venous distension: no JVD Back/Spine/Pelvis Other: decreased cervical ROM with lateral rotation R>L. Significant TTP throughout cervical muscles with taut bands. 5/5 motor strength. Neuro General: No confusion Cranial nerves: Yes Equal, round and reactive pupils present and No Normal hearing present Speech: No Abnormal speech present Psych Appearance: grossly normal Mental Status: mental status grossly normal Speech and movement: Normal speech and movement present Affect: normal affect Attitude: cooperative Thought process: Normal thought process present Thought content: Normal thought content present Insight: Good insight present (Psych) Judgement: Good judgement present (Psych) Assessment & Plan Assessment & Plan (1) Spondylosis of cervical region without myelopathy or radiculopathy: Code(s): M47.812 - Spondylosis without myelopathy or radiculopathy, cervical region (2) Cervicalgia: Code(s): M54.2 - Cervicalgia Plan Diagnostic right-sided C4-C5 C6 medial branch block resulted in complete pain relief for 1 week 100%. right-sided C4-C5 C6 radiofrequency ablation resulted in significant pain relief but only for 3-4 months. That is not long enough. I was planning to do Sprint PNS in September of 2022 however due to family emergency she did not attend for the procedure. I will schedule her again for right-sided C5 possible C4 possible C6 Sprint PNS. I will see her after the procedure. Coding Level of Care Code Est Pt Level 3 (14577) Diagnoses Spondylosis of cervical region without myelopathy or radiculopathy M47.812 Cervicalgia M54.2
[2023-04-17 10:24] VITALS: BP 130/96; PULSE 94; RESP 16; O2SAT 98; BMI 44.1
== END 2023-04-17 10:44 | disposition home or self-care (01) ==
PROVIDERS: PCP Family Medicine; Visit Provider Anesthesiology
DX: M47.812 Spondylosis without myelopathy or radiculopathy, cervical region (principal); M54.2 Cervicalgia
CPT/HCPCS: 99213

== ENCOUNTER → 2023-04-17 10:15 | Outpatient (BNVA) | payer MEDICAID, SELFPAY | PROVIDERS: PCP Family Medicine; Visit Provider Anesthesiology | DX: M47.812 Spondylosis without myelopathy or radiculopathy, cervical region (principal); M54.2 Cervicalgia | CPT/HCPCS: 99212 ==

== ENCOUNTER 2023-05-25 19:09 | Outpatient (REF) | payer MEDICAID, SELFPAY ==
--- NOTE | ~2023-05-25 | MR_ITS ---
EXAMINATION: MR KNEE WITHOUT CONTRAST, RIGHT CLINICAL INFORMATION: Right knee pain and swelling. Effusion. COMPARISON: Multiple prior right knee radiographs, most recent dated 04/07/2023. TECHNIQUE: MRI of the knee without contrast was performed using routine sequences on a high-field scanner. FINDINGS: MENISCI: MEDIAL MENISCUS: Oblique inner margin and tibioarticular surface tearing of the posterior body, extending through the posterior horn and root. Posterior parameniscal cyst, adjacent to the posterior horn and root, measuring up to 0.6 x 1.3 x 0.8 cm. LATERAL MENISCUS: Partially discoid lateral meniscus without tearing. LIGAMENTS: CRUCIATE: Intact. COLLATERAL: Intact. EXTENSOR MECHANISM: Intact. ARTICULAR CARTILAGE/BONE: PATELLOFEMORAL COMPARTMENT: Intact articular cartilage. MEDIAL COMPARTMENT: Minimal articular cartilage signal heterogeneity with tiny marginal osteophytes. LATERAL COMPARTMENT: Minimal articular cartilage signal heterogeneity with tiny marginal osteophytes. Posterior non-weightbearing fissuring. JOINT FLUID AND BURSAE: Small joint effusion and trace Stroud's cyst. MR/MR knee RT wo con IMPRESSION: 1. Oblique inner margin and tibioarticular surface tearing of the medial meniscus, posterior body, extending through the posterior horn and root. Posterior parameniscal cyst measuring up to 1.3 cm. 2. Partially discoid lateral meniscus without tearing. 3. Minimal medial and lateral compartment arthrosis. Small joint effusion and trace Stroud's cyst.
== END 2023-05-25 19:10 | disposition home or self-care (01) ==
LOC: HO.MRI 19:09
PROVIDERS: PCP Family Medicine; Visit Provider Orthopaedic Surgery
DX: M25.461 Effusion, right knee (principal)
CPT/HCPCS: 73721

== ENCOUNTER 2023-06-08 08:31 | Outpatient (AMB) | payer MEDICAID, SELFPAY ==
--- NOTE | 2023-06-08 08:34 | MHC.OFFVIS ---
Intake Intake Visit Reasons: ov-MRI Knee RT review Intake Note: Margarito is a 37 year old female who presents today for a right knee MRI review. Patient has pain with daily activity, worse with walking, kneeling, or using stairs. Right knee was injected on 04/07/2023. Allergies naproxen [NAPROXEN] Allergy (Unknown, Verified 06/08/23 08:35) STOMACH PAIN, DIARRHEA, VOMITING HPI ov-MRI Knee RT review HPI Details Barry is a 37 year old woman who returns for an MRI review of her right knee effusion & pain. She has pain with daily activity, worse with walking, kneeling, or using stairs. She found no relief from PT. She was last seen, and injected, on 04/07/23, with some relief. [facility] Medical History Obesity Palpitations Kienb?ck's disease Migraines Headache Hypertension Surgical History History of tubal ligation Social History Patient Tobacco Use Status: Never used Tobacco Second Hand Smoke Exposure: No Advance Directives: No Advance Directives Information Provided: No Patient : No Review of Systems Const All systems reviewed & are unremarkable except as noted in HPI and below Physical Exam Const General: no acute distress, alert and awake Orientation/consciousness: patient oriented x3 HEENT Head: Yes normocephalic and Yes atraumatic Eyes EOM: EOMs intact bilaterally Resp Effort & Inspection: normal respiratory effort and able to speak in complete sentences Cardio Jugular venous distension: no JVD Skin General skin exam: turgor normal Rashes: no rashes Neuro General: patient oriented x3 Extrem Other: + medial Steinmen's Full ROM TTP medial joint line No effusion Psych Appearance: grossly normal Affect: normal affect Attitude: cooperative Results Reviewed Results Reviewed: I personally reviewed the MR images. 1) Oblique inner margin and tibioarticular surface tearing of the medial meniscus, posterior body, extending through the posterior horn and root. Posterior parameniscal cyst measuring up to 1.3 cm. 2. Partially discoid lateral meniscus without tearing. 3. Minimal medial and lateral compartment arthrosis. Small joint effusion and trace Stroud's cyst. Assessment & Plan Assessment & Plan (1) Tear of medial meniscus of right knee: Code(s): S83.241A - Other tear of medial meniscus, current injury, right knee, initial encounter Plan: Medial Meniscus tear that is symptomatic and has been present for > 3 months. I recommend knee arthroscopy on the right. I explained the surgery and the expected recoveryy time. I discussed the risks benefits and alternatives including but not limited to the risk of pain, infection, stiffness, need for further surgery as well as potential medical complications. She expressed understanding. Plan Prepared for Bruce Oswald MD by Rafita Downey, medical transcription editor, on 06/08/23 at 8:39 AM, EST. Coding Level of Care Code Est Pt Level 4 (70242) Diagnoses Tear of medial meniscus of right knee S83.241A
== END 2023-06-08 09:39 | disposition home or self-care (01) ==
PROVIDERS: PCP Family Medicine; Visit Provider Orthopaedic Surgery
DX: S83.241A Other tear of medial meniscus, current injury, right knee, initial encounter (principal)
CPT/HCPCS: 99214

== ENCOUNTER → 2023-06-08 10:26 | Day surgery (SDC) | payer MEDICAID, SELFPAY ==
[2023-06-08 10:39] VITALS: BMI 43.5
[2023-06-08 10:42] VITALS: BP 168/123; PULSE 104; RESP 16; TEMP 36.6; O2SAT 96
[2023-06-08 10:48] VITALS: BP 183/122
--- NOTE | 2023-06-08 10:56 | PC.NURSE ---
BPs 168/123, 183/122, 161/118. dr nitin cornell texted with these readings. waiting for response.
--- NOTE | 2023-06-08 11:46 | PC.NURSE ---
after speaking with md about bps, pt had to go to er. iv #20 g started in rt ac after giving report to pattern graderian Elizabeth. bps and hr in low 100's reported. transported to er at 1135
== END ==
PROVIDERS: PCP Family Medicine; Visit Provider Anesthesiology
DX: M47.812 Spondylosis without myelopathy or radiculopathy, cervical region (principal); Z53.09 Procedure and treatment not carried out because of other contraindication; I10 Essential (primary) hypertension; M25.561 Pain in right knee; M25.461 Effusion, right knee; M92.219 Osteochondrosis (juvenile) of carpal lunate [Kienbock], unspecified hand; E66.9 Obesity, unspecified
CPT/HCPCS: 99212

== ENCOUNTER 2023-06-08 11:39 | Emergency (ER) | payer MEDICAID, SELFPAY ==
[2023-06-08] VITALS (7 sets, daily range): BP systolic 132–186; BP diastolic 79–109; PULSE 96–105; RESP 18–20; TEMP 36.8–37.2; O2SAT 94–98; BMI 44.1
--- NOTE | 2023-06-08 11:45 | ED.GENADULT ---
HPI - General Adult General Chief complaint: General Medical Stated complaint: Nerve Stimulator Time Seen by Provider: 06/08/23 13:09 Related Data Home Medications ?Medication ?Instructions ?Recorded ?Confirmed hydrochlorothiazide 25 mg tablet 25 mg PO DAILY 04/07/23 10/25/23 amlodipine 10 mg tablet 10 mg PO DAILY 12/07/23 dulaglutide 1.5 mg/0.5 mL mg subcut QWEEK 12/07/23 subcutaneous pen injector (Trulicity) losartan 100 mg tablet 100 mg PO DAILY 12/07/23 metoprolol succinate 50 mg 50 mg PO DAILY 02/22/24 tablet,extended release 24 hr Allergies Allergy/AdvReac Type Severity Reaction Status Date / Time Seasonal Allergies Allergy Intermediate Nasal Verified 02/22/24 14:35 congestion naproxen [NAPROXEN] Allergy Unknown STOMACH Verified 02/22/24 14:35 PAIN, DIARRHEA, VOMITING PMFSH Past Medical History Medical History (Updated 02/07/24 @ 13:26 by Rafita Downey) Obesity Palpitations Kienb?ck's disease Migraines Headache Hypertension Surgical History Hx of section History of tubal ligation Family History Family History Family/Other No problems noted. 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 Was due for a nerve stimulator procedure but was cancelled. Medical Decision Making Lab Data 06/08/23 12:01 06/08/23 12:01 Labs: Lab Results 06/08/23 06/08/23 Range/Units 12: 12:23 WBC 11.9 H (4.8-10.8) X10*3/uL RBC 5.19 (4.20-5.50) X10*6/uL Hgb 14.7 (12.0-16.0) g/dl Hct 44.5 (37.0-47.0) % MCV 85.7 (80.0-98.0) fL MCH 28.3 (27.0-33.0) pg MCHC 33.0 (31.0-35.0) g/dl RDW 14.5 (11.0-16.0) % Plt Count 243 (160-400) X10*3/uL MPV 10.5 (9.4-12.3) fL Immature Gran % (Auto) 0.3 (0.0-0.4) % Neut % (Auto) 61.6 (45-73) % Lymph % (Auto) 29.1 (20-40) % [place] % (Auto) 7.6 (2-11) % Eos % (Auto) 1.0 (0-4) % Baso % (Auto) 0.4 (0-2) % Lymph # (Auto) 3.5 (1.2-4.9) X10*3/uL [place] # (Auto) 0.9 (0.1-1.2) X10*3/uL Eos # (Auto) 0.1 (0.0-0.4) X10*3/uL Baso # (Auto) 0.1 (0.0-0.2) X10*3/uL Abs Immat Gran (auto) 0.04 H (0.00-0.03) X10*3/uL Absolute Neuts (auto) 7.3 (2.0-8.3) x10*3/uL Absolute Nucleated RBC 0.000 (0.0-0.012) X10*3/uL Nucleated RBC % (auto) 0.0 (0.0-0.2) /100WBC Sodium 139 (135-145) mmol/L Potassium 4.0 (3.3-5.1) mmol/L Chloride 102 (96-108) mmol/L Carbon Dioxide 29 (22-29) mmol/L Anion Gap 12 (12-20) BUN 11 (9-16) mg/dL Creatinine 0.83 (0.5-1.4) mg/dL Estim Creat Clear Calc 109.1 Estimated GFR > 60 Random Glucose 100 (60-115) mg/dL Calcium 9.5 (8.4-10.2) mg/dL Total Bilirubin 0.3 (0.0-1.0) mg/dL AST 18 (5-31) U/L ALT 21 (0-31) U/L Alkaline Phosphatase 69 (39-117) U/L Total Protein 8.1 H (6.5-8.0) g/dL Albumin 4.1 (3.5-5.0) g/dL Lipase 17 (8-78) U/L Urine Color Yellow Urine Appearance Clear Urine pH 7.5 (5.0-9.0) Ur Specific [place] 1.020 (1.005-1.025) Urine Protein 300 (3+) H (Neg-Trace) mg/dL Urine Glucose (UA) Negative (Negative) mg/dL Urine Ketones Negative (Negative) mg/dL Urine Blood Negative (Negative) Urine Nitrite Negative (Negative) Ur Leukocyte Esterase Negative (Negative) Urine RBC 0-2 (0-2) /HPF Urine WBC 0-5 (0-5) /HPF Ur Squamous Epith Cells 3-5 (0-2) /HPF Urine Bacteria Trace (None Seen) Hyaline Casts 0-2 (0-2) /LPF Discharge Plan Discharge Clinical Impression: Hypertension Qualifiers: Hypertension type: primary hypertension Qualified Code(s): I10 - Essential (primary) hypertension Patient Disposition: Home, Self-Care Instructions: Chronic Hypertension (DC) Prescriptions: No Action triamcinolone acetonide 40 mg/mL suspension 40 mg IM ONCE Qty: 1 0RF hydrochlorothiazide 25 mg tablet 25 mg PO DAILY amlodipine 10 mg tablet 10 mg PO DAILY losartan 100 mg tablet 100 mg PO DAILY Trulicity 1.5 mg/0.5 mL pen injector subcut QWEEK metoprolol succinate 50 mg tablet extended release 24 hr 50 mg PO DAILY Referrals: Della Viera DO [Primary Care Provider] - 06/12/23 Stand Alone Forms: Work/School Release Discharge Date/Time: 06/08/23 15:17 Print Language: Georgian
--- NOTE | 2023-06-08 11:47 | ECG_ITS ---
Test Reason : Hypertension Blood Pressure : / mmHG Vent. Rate : 088 BPM Atrial Rate : 088 BPM P-R Int : 140 ms QRS Dur : 086 ms QT Int : 358 ms P-R-T Axes : 019 -08 092 degrees QTc Int : 433 ms Normal sinus rhythm with sinus arrhythmia Left ventricular hypertrophy with repolarization abnormality ( R in aVL , Jasbir product ) Abnormal ECG When compared with ECG of 08-AUG-2018 10:09, No significant change was found Referred By: Moreno Henderson Electronically Signed By:JORY VILLANUEVA MD
[2023-06-08 12:05] LABS: MANUAL DIFF FLAG NO
[2023-06-08 12:07] LABS: Basophils Absolute Auto 0.1 X10*3/uL (0.0-0.2); Basophils Percent Auto 0.4 % (0-2); Eosinophils Absolute Auto 0.1 X10*3/uL (0.0-0.4); Hematocrit 44.5 % (37.0-47.0); Hemoglobin 14.7 g/dl (12.0-16.0); Imm Gran Abs Auto 0.04 X10*3/uL (0.00-0.03); Imm Gran Pct Auto 0.3 % (0.0-0.4); Lymphocytes Absolute Auto 3.5 X10*3/uL (1.2-4.9); Lymphocytes Percent Auto 29.1 % (20-40); Mean Corpuscular Hemoglobin 28.3 pg (27.0-33.0); Mean Corpuscular Volume 85.7 fL (80.0-98.0); Mean Platelet Volume 10.5 fL (9.4-12.3); Monocytes Absolute Auto 0.9 X10*3/uL (0.1-1.2); Monocytes Percent Auto 7.6 % (2-11); Neutrophils Absolute Auto 7.3 x10*3/uL (2.0-8.3); Neutrophils Percent Auto 61.6 % (45-73); Platelet Count 243 X10*3/uL (160-400); Red Blood Count 5.19 X10*6/uL (4.20-5.50); Red Cell Distribution Width 14.5 % (11.0-16.0); White Blood Count 11.9 X10*3/uL (4.8-10.8)
[2023-06-08 12:22] LABS: Alanine Aminotransferase 21 U/L (0-31); Albumin Level 4.1 g/dL (3.5-5.0); Alkaline Phosphatase 69 U/L (39-117); Anion Gap 12 (12-20); Aspartate Amino Transferase 18 U/L (5-31); Bilirubin Total 0.3 mg/dL (0.0-1.0); Blood Urea Nitrogen 11 mg/dL (9-16); Calcium 9.5 mg/dL (8.4-10.2); Carbon Dioxide 29 mmol/L (22-29); Chloride 102 mmol/L (96-108); Creatinine Clr Calc Pharmacy 109.1; Estimated Glomerular Filt Rate > 60; Glucose Random 100 mg/dL (60-115); Lipase 17 U/L (8-78); Sodium 139 mmol/L (135-145); Total Protein 8.1 g/dL (6.5-8.0)
[2023-06-08 12:35] LABS: Appearance Urine Clear; Color Urine Yellow; Glucose Urine UA Negative (Negative); Leukocyte Esterase Urine Negative (Negative); Nitrite Urine Negative (Negative); PH 7.5 (5.0-9.0); UMIC TRIGGER UACC YES; Urine Blood Negative (Negative); Urine Ketones Negative (Negative); Urine Protein 300 (3+) mg/dL (Neg-Trace)
[2023-06-08 12:39] LABS: Bacteria Urine Trace (None Seen); Hyaline Casts Urine 0-2 /LPF (0-2); RBC Urine 0-2 /HPF (0-2); WBC Urine 0-5 /HPF (0-5)
--- NOTE | 2023-06-08 13:42 | ED_ITS ---
HPI - General Adult General Chief complaint: General Medical Stated complaint: Nerve Stimulator Time Seen by Provider: 06/08/23 13:09 History of Present Illness HPI narrative: Patient is a 37-year-old female presents today with having elevated blood pressure noted prior to getting a nerve stimulator in place. Patient has no chest pain has no dizziness has no nausea no vomiting has no symptoms. Was sent to the emergency department for further evaluation. Related Data Home Medications Medication Instructions Recorded Confirmed labetalol 200 mg tablet 200 mg PO BID 11/20/20 02/24/22 acetaminophen 650 mg 650 mg PO Q8H PRN Pain 06/01/21 02/24/22 tablet,extended release (Pain Relief (acetaminophen)) dulaglutide 0.75 mg/0.5 mL 0.75 mg subcut QWEEK 04/07/23 subcutaneous [facility] hydrochlorothiazide 25 mg tablet 25 mg PO DAILY 04/07/23 losartan 25 mg tablet 25 mg PO DAILY 04/07/23 Allergies Allergy/AdvReac Type Severity Reaction Status Date / Time naproxen [NAPROXEN] Allergy Unknown STOMACH Verified 06/08/23 08:35 PAIN, DIARRHEA, VOMITING Review of Systems 2 Review of Systems: No fever no chills no chest pain or shortness breath no dizziness no symptoms Yes all other systems are reviewed and are negative PMFSH Past Medical History Attestation statement: The following information was validated with the patient. Medical History Obesity Palpitations Kienb?ck's disease Migraines Headache Hypertension Surgical History History of tubal ligation Social History Social History Patient Tobacco Use Status: Never used Tobacco Second Hand Smoke Exposure: No Advance Directives: No Advance Directives Information Provided: No Physical Exam ED Vital Signs: Vital Signs - 24 hr 06/08/23 11:42 06/08/23 12:20 06/08/23 13:00 Temperature 99.0 F 98.7 F Pulse Rate 98 96 97 Respiratory Rate 18 20 Blood Pressure 186/109 H 171/86 H 148/80 H Pulse Oximetry 96 97 94 Oxygen Delivery Method Room Air Room Air Room Air 06/08/23 13:30 06/08/23 13:45 06/08/23 13:53 Temperature Pulse Rate 105 H 96 97 Respiratory Rate Blood Pressure 146/79 H 147/93 H 132/79 Pulse Oximetry 96 Oxygen Delivery Method Room Air BMI result Body Mass Index 44.1 Appearance: Alert. Oriented X3. No acute distress. Eyes: Pupils equal, round and reactive to light. ENT: Pharynx normal. Neck: Normal inspection. Neck supple. No lymph nodes noted. No crepitus CVS: Normal heart rate and rhythm. Pulses normal. Normal S1 and S2 Respiratory: No respiratory distress. Breath sounds normal. No Wheezing. No rales Abdomen: Soft and nontender. No rigidity. No distention. good BS x4 Skin: Skin warm and dry. Normal skin color. Normal skin turgor. Extremities: No lower extremity edema. Neurovascular intact to all extremities. No Lacerations. No Rash Neuro: Oriented X 3. No motor deficit. No sensory deficit. Moving all extermities. No slurred speech Medical Decision Making Medical Decision Making [facility] Narrative: Patient well-appearing no acute distress. Has no symptoms. Patient was sent for an elevated blood pressure. On recheck in the emergency department patient's blood pressure is proximally 150/90. She has in no distress. Labs were drawn patient's hemoglobin is normal no evidence for anemia patient's electrolytes shows a normal creatinine patient's urine showed positive protein no blood no infection Discussed with pain management. Can not get the procedure done today. Will discharge patient home close follow-up outpatient patient's blood pressure is actually normal now in no distress. Most likely the elevated blood pressure secondary to stress. Patient being discharged home. Differential Diagnosis Differential Diagnoses: The differential diagnosis associated with the presentation includes Hypertension, renal failure, electrolyte disturbance, anxiety Admission/Observation Consideration of admission/observation: Escalation of care including admission/observation considered Consult Healthcare Provider Pain control room agent Lab Data [facility] Lab Attestation statement: I reviewed the patient's lab results. 06/08/23 12:01 06/08/23 12:01 Labs: Lab Results 06/08/23 06/08/23 Range/Units 12:01 12:23 WBC 11.9 H (4.8-10.8) X10*3/uL RBC 5.19 (4.20-5.50) X10*6/uL Hgb 14.7 (12.0-16.0) g/dl Hct 44.5 (37.0-47.0) % MCV 85.7 (80.0-98.0) fL MCH 28.3 (27.0-33.0) pg MCHC 33.0 (31.0-35.0) g/dl RDW 14.5 (11.0-16.0) % Plt Count 243 (160-400) X10*3/uL MPV 10.5 (9.4-12.3) fL Immature Gran % (Auto) 0.3 (0.0-0.4) % Neut % (Auto) 61.6 (45-73) % Lymph % (Auto) 29.1 (20-40) % Mclean % (Auto) 7.6 (2-11) % Eos % (Auto) 1.0 (0-4) % Baso % (Auto) 0.4 (0-2) % Lymph # (Auto) 3.5 (1.2-4.9) X10*3/uL Mclean # (Auto) 0.9 (0.1-1.2) X10*3/uL Eos # (Auto) 0.1 (0.0-0.4) X10*3/uL Baso # (Auto) 0.1 (0.0-0.2) X10*3/uL Abs Immat Gran (auto) 0.04 H (0.00-0.03) X10*3/uL Absolute Neuts (auto) 7.3 (2.0-8.3) x10*3/uL Absolute Nucleated RBC 0.000 (0.0-0.012) X10*3/uL Nucleated RBC % (auto) 0.0 (0.0-0.2) /100WBC Sodium 139 (135-145) mmol/L Potassium 4.0 (3.3-5.1) mmol/L Chloride 102 (96-108) mmol/L Carbon Dioxide 29 (22-29) mmol/L Anion Gap 12 (12-20) BUN 11 (9-16) mg/dL Creatinine 0.83 (0.5-1.4) mg/dL Estim Creat Clear Calc 109.1 Estimated GFR > 60 Random Glucose 100 (60-115) mg/dL Calcium 9.5 (8.4-10.2) mg/dL Total Bilirubin 0.3 (0.0-1.0) mg/dL AST 18 (5-31) U/L ALT 21 (0-31) U/L Alkaline Phosphatase 69 (39-117) U/L Total Protein 8.1 H (6.5-8.0) g/dL Albumin 4.1 (3.5-5.0) g/dL Lipase 17 (8-78) U/L Urine Color Yellow Urine Appearance Clear Urine pH 7.5 (5.0-9.0) Ur Specific Otis 1.020 (1.005-1.025) Urine Protein 300 (3+) H (Neg-Trace) mg/dL Urine Glucose (UA) Negative (Negative) mg/dL Urine Ketones Negative (Negative) mg/dL Urine Blood Negative (Negative) Urine Nitrite Negative (Negative) Ur Leukocyte Esterase Negative (Negative) Urine RBC 0-2 (0-2) /HPF Urine WBC 0-5 (0-5) /HPF Ur Squamous Epith Cells 3-5 (0-2) /HPF Urine Bacteria Trace (None Seen) Hyaline Casts 0-2 (0-2) /LPF Independent Interpretation I performed an independent interpretation of an: EKG (Sinus heart rate is 80 DC QRS QTC within normal limits there is LVH noted.) Independent Historian Clinical information obtained from an independent historian. History obtained from or confirmed by: Spouse External Record Review External record reviewed: Outpatient record (Pain management record) Chronic Conditions Cervical radiculopathy Discharge Plan Discharge Clinical Impression: Hypertension Patient Disposition: Home, Self-Care Instructions: Chronic Hypertension (DC) Prescriptions: No Action labetalol 200 mg tablet 200 mg PO BID acetaminophen [Pain Relief (acetaminophen)] 650 mg tablet extended release 650 mg PO Q8H PRN (Reason: Pain) triamcinolone acetonide 40 mg/mL suspension 40 mg IM ONCE Qty: 1 0RF hydrochlorothiazide 25 mg tablet 25 mg PO DAILY losartan 25 mg tablet 25 mg PO DAILY Trulicity 0.75 mg/0.5 mL pen injector 0.75 mg subcut QWEEK Referrals: Della Viera DO [Primary Care Provider] - 06/12/23 Stand Alone Forms: Work/School Release
== END 2023-06-08 15:17 | disposition home or self-care (01) ==
PROVIDERS: Physician Assistant; Emergency Provider Emergency Medicine Emergency Medical Services; PCP Family Medicine
DX: I10 Essential (primary) hypertension (principal); M93.1 Kienbock's disease of adults; E66.9 Obesity, unspecified; Z68.42 Body mass index [BMI] 45.0-49.9, adult; Z79.85 Long-term (current) use of injectable non-insulin antidiabetic drugs
CPT/HCPCS: 36415; 80053; 81001; 83690; 85025; 93005; 99283; 99284

== ENCOUNTER → 2023-06-08 11:47 | Outpatient (BNV) | payer MEDICAID, SELFPAY | PROVIDERS: Emergency Provider Emergency Medicine Emergency Medical Services; PCP Family Medicine; Visit Provider Internal Medicine Cardiovascular Disease | DX: I10 Essential (primary) hypertension (principal) | CPT/HCPCS: 93010 ==

== ENCOUNTER 2023-10-09 13:04 | Outpatient (AMB) | payer MEDICAID, SELFPAY ==
--- NOTE | 2023-10-09 13:10 | MHC.OFFVIS ---
Vital Signs 10/09/23 13:16 Height 5 ft 2 in Weight 227 lb 4 oz BMI 41.6 BP 140/90 H Blood Pressure Location Lt brachial Position Sitting Respiration 16 Pulse 97 Pulse Source Pulse Oximeter Pulse Oximetry (%) 97 Oxygen Delivery Method Room Air Intake Visit Reasons: RIGHT HAND PAIN Intake Note: Patient comes in for right hand pain. Reports pain 9/10. Allergies naproxen [NAPROXEN] Allergy (Unknown, Verified 06/08/23 08:35) STOMACH PAIN, DIARRHEA, VOMITING HPI Comments Details: Margarito is very pleasant 38 years old female who is in this office under observation for a long period of time. She received in the past several procedures in this office with very good success. She had radiofrequency ablation of the cervical medial branches which still allows her to keep her cervicalgia manageable. However she is in my office today with complains on pain in the right hand. She reported that she was diagnosed with Kienbock's disease. She requests me to send her for the consultation with ortho hand surgeon. I will refer her to Dr. Navarro. [facility] Medical History Obesity Palpitations Kienb?ck's disease Migraines Headache Hypertension Surgical History History of tubal ligation Social History Patient Tobacco Use Status: Never used Tobacco Second Hand Smoke Exposure: No Review of Systems Const All systems reviewed & are unremarkable except as noted in HPI and below ENT Denies Normal hearing present Neuro Denies Normal hearing present, Denies Abnormal speech present and Denies confusion Psych Denies confusion Physical Exam Vital Signs: Last Vital Signs Pulse 97 10/09/23 13:16 Resp 16 10/09/23 13:16 BP 140/90 H 10/09/23 13:16 Pulse Ox 97 10/09/23 13:16 Oxygen Delivery Method Room Air 10/09/23 13:16 BMI result Body Mass Index 41.6 Const General: No confusion Nutritional Appearance: obese Orientation/consciousness: No confusion HEENT Head: Yes normocephalic and Yes atraumatic Ears: hearing grossly normal bilaterally Eyes General: appearance normal, both eyes and all related structures Eyelids: Yes eyelids normal Pupils: Equal, round and reactive pupils present EOM: EOMs intact bilaterally Neck Neck: Yes normal visual inspection and Yes no JVD Resp Effort & Inspection: normal respiratory effort, able to speak in complete sentences and no audible wheezes Cardio Jugular venous distension: no JVD Back/Spine/Pelvis Other: decreased cervical ROM with lateral rotation R>L. Significant TTP throughout cervical muscles with taut bands. 5/5 motor strength. Neuro General: No confusion Cranial nerves: Yes Equal, round and reactive pupils present and No Normal hearing present Speech: No Abnormal speech present Psych Appearance: grossly normal Mental Status: mental status grossly normal Speech and movement: Normal speech and movement present Affect: normal affect Attitude: cooperative Thought process: Normal thought process present Thought content: Normal thought content present Insight: Good insight present (Psych) Judgement: Good judgement present (Psych) Assessment & Plan Assessment & Plan (1) Spondylosis of cervical region without myelopathy or radiculopathy: Code(s): M47.812 - Spondylosis without myelopathy or radiculopathy, cervical region Category: Medical (2) Cervicalgia: Code(s): M54.2 - Cervicalgia Category: Medical (3) 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 right-sided C4-C5 C6 radiofrequency ablation resulted in significant pain relief the patient still admits significant pain relief from this procedure. She was diagnosed with Kienbock disease 15 years ago. She would like to have orthopedic surgery consult. I will schedule her for the consult with Dr. Navarro. Orders: Referrals Orthopedics Referral M92.219 - Osteochondrosis (juvenile) of carpal lunate [Kienbock], unspecified hand Coding Level of Care Code Est Pt Level 3 (39966) Diagnoses Spondylosis of cervical region without myelopathy or radiculopathy M47.812 Cervicalgia M54.2 Kienb?ck's disease M92.219
[2023-10-09 13:16] VITALS: BP 140/90; PULSE 97; RESP 16; O2SAT 97; BMI 41.6
== END 2023-10-09 13:29 | disposition home or self-care (01) ==
PROVIDERS: PCP Family Medicine; Referring Provider Family Medicine; Visit Provider Anesthesiology
DX: M47.812 Spondylosis without myelopathy or radiculopathy, cervical region (principal); M54.2 Cervicalgia; M92.219 Osteochondrosis (juvenile) of carpal lunate [Kienbock], unspecified hand
CPT/HCPCS: 99213

== ENCOUNTER → 2023-10-09 13:04 | Outpatient (BNVA) | payer MEDICAID, SELFPAY | PROVIDERS: PCP Family Medicine; Visit Provider Anesthesiology | DX: M54.2 Cervicalgia (principal); M47.812 Spondylosis without myelopathy or radiculopathy, cervical region; M92.211 Osteochondrosis (juvenile) of carpal lunate [Kienbock], right hand | CPT/HCPCS: 99212 ==

== ENCOUNTER 2023-10-25 13:55 | Outpatient (AMB) | payer MEDICAID, SELFPAY ==
--- NOTE | 2023-10-25 13:57 | MHC.OFFVIS ---
Vital Signs 10/25/23 14:12 Height 5 ft 2 in Weight 227 lb BMI 41.5 Intake Visit Reasons: New prob- right hand pain Intake Note: Margarito a 38 year old 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 female who presents today for an evaluation of right hand. Patient reports being diagnosed with endy box in 2014. States about 3 years ago she was given an cortisone injection which provided her with little relief for a couple of months. Currently her pain has increased pain and is located in the middle of her wrist. States tenderness to the touch and numbness in her finger tips. Hx of cervical disc condition that causes discomfort in her whole right arm, she is schedule to have a EMG next week. Allergies naproxen [NAPROXEN] Allergy (Unknown, Verified 06/08/23 08:35) STOMACH PAIN, DIARRHEA, VOMITING Medication List - Last Reconciled 10/25/23 by Jam Colby PA-C acetaminophen ER (Pain Relief (acetaminophen)) 650 mg PO Q8H PRN amlodipine 2.5 mg PO DAILY dulaglutide (Trulicity) 0.75 mg subcut QWEEK hydrochlorothiazide 25 mg PO DAILY labetalol 200 mg PO BID losartan 25 mg PO DAILY HPI HPI New prob- right hand pain: Details: 38-year-old 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 female who presents to the office today for an evaluation of right-hand pain. She states she was dx with kienbocks disease in 2014. She had a cortisone injection about 3 years ago which provided her mild relief for 2 months. She currently states she has worsened pain at the medial aspect of her wrist as well as tenderness to touch and numbness in her fingertips. She has a history of cervical disc condition that caused discomfort in her whole right arm. 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 Review of Systems Const All systems reviewed & are unremarkable except as noted in HPI and below Physical Exam Vital Signs: BMI result Body Mass Index 41.5 Const General: cooperative, healthy appearing, comfortable, no acute distress, well developed and alert Orientation/consciousness: patient oriented x3 HEENT Head: Yes normal to inspection, Yes normocephalic and Yes atraumatic Eyes General: appearance normal, both eyes and all related structures Resp Effort & Inspection: normal respiratory effort and able to speak in complete sentences Cardio Rate: regular rate Peripheral pulses: Peripheral pulses 2+ throughout GI Palpation (GI): Soft to palpation Skin Lesions: no lesions Rashes: no rashes Neuro General: patient oriented x3 Extrem Other: Right thumb: Pain at the base of the thumb along the scaffold lunate region. Pain with CMC grind, they are able to make a full fist and fully extend. NVI. Results Reviewed Results Reviewed: Xrays were obtained in the office today and personally reviewed by me of the right hand are negative for acute fracture or dislocations. 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 We will also review her previous 2012 study and she will move forward with the EMG study as well. She will see me back once the scan is complete. Orders: Orders XR hand RT min 3V 10/25/23 M79.641 - Pain in right hand Patient Instructions: Scribed for Jam Colby PA-C, by Hussain Menon medical attendant, on 10/25/2023 at 2:15 PM EST.? I, Jam Colby PA-C, have personally reviewed and agree with the information entered by the scribe. Coding Level of Care Code New Pt Level 3 (38728) Diagnoses Kienb?ck's disease M92.219
[2023-10-25 14:12] VITALS: BMI 41.5
== END 2023-10-25 15:12 | disposition home or self-care (01) ==
PROVIDERS: PCP Family Medicine; Visit Provider Physician Assistant
DX: M92.219 Osteochondrosis (juvenile) of carpal lunate [Kienbock], unspecified hand (principal)
CPT/HCPCS: 99203

== ENCOUNTER 2023-10-25 13:55 | Outpatient (REF) | payer MEDICAID, SELFPAY ==
--- NOTE | ~2023-10-25 | XR_ITS ---
EXAMINATION: XR HAND, RIGHT CLINICAL INFORMATION: Pain in right hand. COMPARISON: Right wrist 09/09/2020 TECHNIQUE: PA, lateral, and oblique views of the right hand. FINDINGS: Redemonstration of sclerosis of the lunate bone, concerning for avascular necrosis. Associated small cystic lucencies. Mild degenerative changes in the first carpometacarpal joint. Bone mineralization is normal. No acute displaced fracture. XR/XR hand RT min 3V IMPRESSION: 1. Redemonstration of sclerosis of the lunate bone, concerning for avascular necrosis. 2. Mild degenerative changes in the first carpometacarpal joint.
== END 2023-10-25 13:56 | disposition home or self-care (01) ==
LOC: HO.HOSX 13:55
PROVIDERS: PCP Family Medicine; Visit Provider Physician Assistant
DX: M79.641 Pain in right hand (principal); M92.211 Osteochondrosis (juvenile) of carpal lunate [Kienbock], right hand
CPT/HCPCS: 73130; 99212

== ENCOUNTER 2023-10-31 08:37 | Outpatient (REF) | payer MEDICAID, SELFPAY ==
--- NOTE | 2023-10-31 08:30 | EMG_ITS ---
Right median and ulnar motor and sensory studies were performed. Right median and lateral antecubital brachial, sensory radial, and ulnar dorsal sensory study was performed, and needle examination was performed. IMPRESSION: 1. Mild right median neuropathy across carpal tunnel. 2. Mild right ulnar neuropathy across cubital tunnel. MD FAB Lemus/BRANDON / [phone]
== END 2023-10-31 08:38 | disposition home or self-care (01) ==
LOC: HO.NEURO 08:37
PROVIDERS: PCP Family Medicine; Visit Provider Family Medicine
DX: M54.2 Cervicalgia (principal); G89.29 Other chronic pain
CPT/HCPCS: 95886; 95910

== ENCOUNTER 2023-11-07 15:34 | Outpatient (REF) | payer MEDICAID, SELFPAY ==
[2023-11-07 16:25] LABS: Hematocrit 41.9 % (37.0-47.0); Hemoglobin 13.8 g/dl (12.0-16.0); Mean Corpuscular HGB Conc 32.9 g/dl (31.0-35.0); Mean Corpuscular Hemoglobin 28.7 pg (27.0-33.0); Mean Corpuscular Volume 87.1 fL (80.0-98.0); Mean Platelet Volume 11.2 fL (9.4-12.3); Platelet Count 275 X10*3/uL (160-400); Red Blood Count 4.81 X10*6/uL (4.20-5.50); Red Cell Distribution Width 13.7 % (11.0-16.0); White Blood Count 13.9 X10*3/uL (4.8-10.8)
[2023-11-07 16:33] LABS: Estimated Average Glucose 114 mg/dL; Hemoglobin A1c % 5.6 % (<6.0)
[2023-11-07 16:53] LABS: Rheumatoid Factor < 13.0 IU/mL (<15.0)
[2023-11-07 17:03] LABS: Alanine Aminotransferase 19 U/L (0-31); Albumin Level 4.3 g/dL (3.5-5.0); Alkaline Phosphatase 83 U/L (39-117); Anion Gap 14 (12-20); Aspartate Amino Transferase 18 U/L (5-31); Bilirubin Direct < 0.2 mg/dL (0.0-0.5); Bilirubin Total 0.2 mg/dL (0.0-1.0); Blood Urea Nitrogen 12 mg/dL (9-16); C Reactive Protein 1.52 mg/dL (< or = 0.50); Calcium 9.9 mg/dL (8.4-10.2); Carbon Dioxide 25 mmol/L (22-29); Chloride 105 mmol/L (96-108); Cholesterol 233 mg/dL (<200); Estimated Glomerular Filt Rate > 60; Glucose Random 108 mg/dL (60-115); HDL Cholesterol 57 mg/dL (>40); LDL Cholesterol Calculated 151 mg/dL (<100); Potassium 3.9 mmol/L (3.3-5.1); Sodium 140 mmol/L (135-145); Total Protein 8.4 g/dL (6.5-8.0); Triglycerides 128 mg/dL (<150)
[2023-11-07 17:20] LABS: Free T4 (Free Thyroxine) 1.01 ng/dL (0.71-1.85); Vitamin D 25-OH Total 26.2 ng/mL (>30)
[2023-11-07 17:25] LABS: Erythrocyte Sedimentation Rate 25 MM/HR (0-20)
[2023-11-07 17:31] LABS: Creatinine Urine 281.45 mg/dL
[2023-11-07 17:47] LABS: Microalbum/Creatinine Ratio Ur 710.6 ug/mg cr (<30); Microalbumin Urine > 2000.0 mg/L
[2023-11-08 02:12] LABS: CT PCR NOT DETECTED (Not Detect.); NG PCR NOT DETECTED (Not Detect.)
[2023-11-08 08:06] LABS: HBS Num1 92.86 mIU/mL (0-7.99); HBsAGNum1 0.23 S/CO (0.00-0.99); HIV AB/AG Nonreactive (Nonreactive); HIV Num 1 0.06 S/CO (0.00-0.99); Hepatitis A Antibody IgG Nonreactive (Nonreactive); Hepatitis B Surface Antigen Negative (Negative); ~HepC Num1 0.08 S/CO (0.00-0.79); ~Hepatitis A Antibody IgG 0.61 S/CO (0.00-0.99); ~Hepatitis B Surface Antibody REACTIVE (Nonreactive); ~Hepatitis C Antibody Nonreactive (Nonreactive)
[2023-11-08 08:53] LABS: Lyme Abs Screen <0.90 index
[2023-11-08 12:28] LABS: RPR Rapid Plasma Reagin NON-REACTIVE (NON-REACTIVE)
[2023-11-15 15:33] LABS: Anti Nuclear Antibody Pattern Nuclear, Speckled; Anti Nuclear Antibody Screen POSITIVE (NEGATIVE); Anti Nuclear Antibody Titer 1:40 titer
== END 2023-11-07 15:35 | disposition home or self-care (01) ==
LOC: HO.HHCL 15:34
PROVIDERS: Visit Provider Family Medicine
DX: Z00.00 Encounter for general adult medical examination without abnormal findings (principal); M25.50 Pain in unspecified joint; I10 Essential (primary) hypertension
CPT/HCPCS: 36415; 80048; 80061; 80076; 82043; 82306; 82570; 83036; 84439; 84443; 85027; 85652; 86038; 86039; 86140; 86431; 86592; 86617; 86618; 86706; 86708; 86803; 87340; 87389; 87491; 87591

== ENCOUNTER 2023-11-27 11:59 | Outpatient (REF) | payer MEDICAID, SELFPAY ==
[2023-11-27 13:16] LABS: MANUAL DIFF FLAG NO
[2023-11-27 13:22] LABS: Basophils Absolute Auto 0.1 X10*3/uL (0.0-0.2); Basophils Percent Auto 0.5 % (0-2); Eosinophils Absolute Auto 0.3 X10*3/uL (0.0-0.4); Eosinophils Percent Auto 2.9 % (0-4); Hematocrit 39.3 % (37.0-47.0); Hemoglobin 12.7 g/dl (12.0-16.0); Imm Gran Abs Auto 0.03 X10*3/uL (0.00-0.03); Imm Gran Pct Auto 0.3 % (0.0-0.4); Lymphocytes Absolute Auto 3.9 X10*3/uL (1.2-4.9); Lymphocytes Percent Auto 37.3 % (20-40); Mean Corpuscular HGB Conc 32.3 g/dl (31.0-35.0); Mean Corpuscular Hemoglobin 28.6 pg (27.0-33.0); Mean Corpuscular Volume 88.5 fL (80.0-98.0); Mean Platelet Volume 11.4 fL (9.4-12.3); Monocytes Absolute Auto 0.6 X10*3/uL (0.1-1.2); Monocytes Percent Auto 5.9 % (2-11); Neutrophils Absolute Auto 5.5 x10*3/uL (2.0-8.3); Neutrophils Percent Auto 53.1 % (45-73); Platelet Count 206 X10*3/uL (160-400); Red Blood Count 4.44 X10*6/uL (4.20-5.50); Red Cell Distribution Width 13.2 % (11.0-16.0); White Blood Count 10.4 X10*3/uL (4.8-10.8)
[2023-11-27 13:59] LABS: Cholesterol 187 mg/dL (<200); HDL Cholesterol 54 mg/dL (>40); LDL Cholesterol Calculated 110 mg/dL (<100); Triglycerides 118 mg/dL (<150)
[2023-12-01 11:05] LABS: Anti Nuclear Antibody Screen NEGATIVE (NEGATIVE)
== END 2023-11-27 12:00 | disposition home or self-care (01) ==
LOC: HO.HHCL 11:59
PROVIDERS: Visit Provider Family Medicine
DX: R76.8 Other specified abnormal immunological findings in serum (principal); D72.829 Elevated white blood cell count, unspecified; I10 Essential (primary) hypertension
CPT/HCPCS: 36415; 80061; 85025; 86038

== ENCOUNTER 2023-12-07 13:27 | Outpatient (AMB) | payer MEDICAID, SELFPAY ==
--- NOTE | 2023-12-07 13:29 | HO.NEPHOV_ITS ---
Vital Signs 12/07/23 13:35 Height 5 ft 2 in Weight 232 lb 2 oz BMI 42.5 BP 154/100 H Blood Pressure Location Lt brachial Position Sitting Pulse 102 H Pulse Source Pulse Oximeter Pulse Oximetry (%) 98 Oxygen Delivery Method Room Air Intake Visit Reasons: Proteinuria / Conf Global Position System Technician Required: No Accompanied by: Child Allergies naproxen [NAPROXEN] Allergy (Unknown, Verified 12/07/23 13:37) STOMACH PAIN, DIARRHEA, VOMITING HPI Comments Details: Thank you for referring Ms. Ferrell for evaluation of proteinuria and hypertension. She has been hypertensive since 9 years after her second child ( has 3 children). She is 38 years of age with prediabetes, high BMI and hypertension. She has been on Trulicity with some weight loss. She denies any retinopathy or hematuria. She is on ARB/HCTZ/calcium channel jaye. ( labetalol discontinued). She has no history of nephrolithiasis. She denies any new bone pain or back pain. She has no history of hypercalcemia. She is on multiple antihypertensive medications. She does not have any coronary artery disease, carotid disease, CVA, CHF, NANCY or PAD. She denies epistaxis, recurrent sinusitis, sore throat, photosensitivity, new skin rashes. She has no family history of any he has had a renal transplantation. One of her aunts has lupus. She has no history of any sensorineural deafness or microscopic hematuria. She has no history of sweating issues. She claims to be compliant with her medications. 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, 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 Review of Systems Const All systems reviewed & are unremarkable except as noted in HPI and below Physical Exam Vital Signs: Last Vital Signs Pulse 102 H 08/01/24 13:35 BP 154/100 H 08/01/24 13:35 Pulse Ox 98 12/07/23 13:35 Oxygen Delivery Method Room Air 12/07/23 13:35 BMI result Body Mass Index 42.5 Const General: comfortable and no acute distress Orientation/consciousness: patient oriented x3 HEENT Head: Yes normocephalic Mouth: Normal oral and palatal mucosa present Eyes EOM: EOMs intact bilaterally Neck Neck: Yes supple Resp Auscultation: clear to auscultation bilaterally Cardio Jugular venous distension: no JVD Rate: regular rate GI Palpation (GI): Soft to palpation Auscultation: normal bowel sounds General: Yes no CVA tenderness Back/Spine/Pelvis Back: no CVA tenderness Skin General skin exam: no rashes or lesions noted Neuro General: patient oriented x3 and moves all extremities Extrem General: Yes no pedal edema Results Reviewed Nephrology Results: Hgb 12.7 g/dl (12.0-16.0) 11/27/23 WBC 10.4 X10*3/uL (4.8-10.8) 11/27/23 Plt Count 206 X10*3/uL (160-400) 11/27/23 Sodium 140 mmol/L (135-145) 11/07/23 Potassium 3.9 mmol/L (3.3-5.1) 11/07/23 Chloride 105 mmol/L (96-108) 11/07/23 Carbon Dioxide 25 mmol/L (22-29) 11/07/23 BUN 12 mg/dL (9-16) 11/07/23 Creatinine 0.91 mg/dL (0.5-1.4) 11/07/23 Calcium 9.9 mg/dL (8.4-10.2) 11/07/23 Urine Protein 300 (3+) mg/dL (Neg-Trace) H 06/08/23 Urine Creatinine 281.45 mg/dL 11/07/23 Assessment & Plan Assessment & Plan (1) Proteinuria: Code(s): R80.9 - Proteinuria, unspecified Category: Medical Qualifiers: Proteinuria type: other Qualified Code(s): R80.8 - Other proteinuria (2) Hypertension: Code(s): I10 - Essential (primary) hypertension Category: Medical Qualifiers: Hypertension type: primary hypertension Qualified Code(s): I10 - Essential (primary) hypertension Plan Ms. Ferrell has proteinuria his can be multifactorial. Her high BMI is putting her at risk for secondary FSGS. She has longstanding hypertension as well as prediabetes. I have ordered extensive workup including imaging studies and 24 hour urine for protein. She likely will need renal biopsy. She may need 24 hour BPM and likely need more medications to keep her BP at goal. Time spent retrieving all her data, patient encounter, documentation 49 minutes. Answered all questions. Follow-up appointment given. Orders: Orders Renin Today I10 - Essential (primary) hypertension, R80.8 - Other proteinuria Metanephrines, Plasma Today I10 - Essential (primary) hypertension, R80.8 - Other proteinuria Protein Creatinine Ratio, Ur Today I10 - Essential (primary) hypertension, R80.8 - Other proteinuria Immunofixation, Random Urine Today I10 - Essential (primary) hypertension, R80.8 - Other proteinuria Blood Urea Nitrogen Today I10 - Essential (primary) hypertension, R80.8 - Other proteinuria Calcium Today I10 - Essential (primary) hypertension, R80.8 - Other proteinuria Aldost/Renin Today I10 - Essential (primary) hypertension, R80.8 - Other proteinuria Aldosterone Today I10 - Essential (primary) hypertension, R80.8 - Other proteinuria TSH reflex Free T4 Today I10 - Essential (primary) hypertension, R80.8 - Other proteinuria Cortisol Random Today I10 - Essential (primary) hypertension, R80.8 - Other proteinuria US renal BI Today I10 - Essential (primary) hypertension, R80.8 - Other proteinuria US renal doppler Today I10 - Essential (primary) hypertension, R80.8 - Other proteinuria Immunofixation Pnl, Serum Today I10 - Essential (primary) hypertension, R80.8 - Other proteinuria Electrolytes Today I10 - Essential (primary) hypertension, R80.8 - Other proteinuria Creatinine Today I10 - Essential (primary) hypertension, R80.8 - Other proteinuria Protein, 24 Hr Urine Group Today R80.8 - Other proteinuria Complete Blood Count Auto Diff Today I10 - Essential (primary) hypertension, R80.8 - Other proteinuria Prothrombin Time INR Today I10 - Essential (primary) hypertension, R80.8 - Other proteinuria Coding Level of Care Code New Pt Level 5 (26906) Diagnoses Other proteinuria R80.8 Proteinuria type: other Primary hypertension I10 Hypertension type: primary hypertension
[2023-12-07 13:35] VITALS: BP 154/100; PULSE 102; O2SAT 98; BMI 42.5
== END 2023-12-07 14:53 | disposition home or self-care (01) ==
PROVIDERS: PCP Family Medicine; Referring Provider Family Medicine; Visit Provider Internal Medicine Nephrology
DX: R80.8 Other proteinuria (principal); I10 Essential (primary) hypertension
CPT/HCPCS: 99205

== ENCOUNTER → 2023-12-07 13:27 | Outpatient (BNVA) | payer MEDICAID, SELFPAY | PROVIDERS: PCP Family Medicine; Referring Provider Family Medicine; Visit Provider Internal Medicine Nephrology | DX: I10 Essential (primary) hypertension (principal); R80.8 Other proteinuria | CPT/HCPCS: 99202 ==

== ENCOUNTER 2023-12-11 07:50 | Outpatient (REF) | payer MEDICAID, SELFPAY ==
[2023-12-11 08:19] LABS: MANUAL DIFF FLAG NO
[2023-12-11 08:55] LABS: Basophils Percent Auto 0.4 % (0-2); Eosinophils Absolute Auto 0.3 X10*3/uL (0.0-0.4); Eosinophils Percent Auto 3.2 % (0-4); Imm Gran Abs Auto 0.06 X10*3/uL (0.00-0.03); Imm Gran Pct Auto 0.6 % (0.0-0.4); Lymphocytes Percent Auto 31.5 % (20-40); Mean Corpuscular HGB Conc 32.5 g/dl (31.0-35.0); Mean Corpuscular Hemoglobin 28.8 pg (27.0-33.0); Mean Corpuscular Volume 88.5 fL (80.0-98.0); Monocytes Absolute Auto 0.7 X10*3/uL (0.1-1.2); Monocytes Percent Auto 7.6 % (2-11); Neutrophils Absolute Auto 5.4 x10*3/uL (2.0-8.3); Neutrophils Percent Auto 56.7 % (45-73); Platelet Count 219 X10*3/uL (160-400); Red Blood Count 4.52 X10*6/uL (4.20-5.50); Red Cell Distribution Width 13.6 % (11.0-16.0); White Blood Count 9.5 X10*3/uL (4.8-10.8)
[2023-12-11 09:00] LABS: INTERNATIONAL NORM RATIO 0.9 (0.9-1.1); Prothrombin Time 11.1 SEC (11.1-13.3)
[2023-12-11 09:28] LABS: Anion Gap 10 (12-20); Blood Urea Nitrogen 10 mg/dL (9-16); Calcium 8.7 mg/dL (8.4-10.2); Carbon Dioxide 26 mmol/L (22-29); Chloride 104 mmol/L (96-108); Estimated Glomerular Filt Rate > 60; Potassium 4.1 mmol/L (3.3-5.1); Sodium 136 mmol/L (135-145)
[2023-12-11 09:47] LABS: Creatinine, mg/dL 108.29; Protein mg/dL 68 mg/dL
[2023-12-11 09:48] LABS: TSH reflex Free T4 1.48 uIU/mL (0.32-4.0)
[2023-12-11 09:48] LABS: Creatinine Urine 85.41 mg/dL; Protein/Creatinine Ratio, Ur 0.83 (<0.2); Total Protein Urine Random 71 mg/dL (<12)
[2023-12-11 10:10] LABS: Cortisol Random 9.7 ug/dL
[2023-12-11 12:32] LABS: Creatinine, 24Hr Urine 1.5 G/Day (1.0-2.0); Protein 24 Hr Urine 918 mg/Day (<150); Total Volume 24 Hour Urine 1350 mL
[2023-12-13 15:39] LABS: IgA 236 mg/dL (47-310); IgG 1477 mg/dL (600-1640); IgM 52 mg/dL (50-300)
[2023-12-17 16:09] LABS: Metanephrine, Free <25 pg/mL (<=57); Normetanephrines, Free 84 pg/mL (<=148); Total Metanephrine, Free 84 pg/mL (<=205)
[2023-12-18 13:03] LABS: Renin 1.77 ng/mL/h (0.25-5.82)
[2023-12-20 15:58] LABS: Aldosterone/Renin Ratio 3.7 Ratio (0.9-28.9); Plasma Renin Activity 1.64 ng/mL/h (0.25-5.82)
== END 2023-12-11 07:51 | disposition home or self-care (01) ==
LOC: HO.LAB 07:50
PROVIDERS: PCP Family Medicine; Visit Provider Internal Medicine Nephrology
DX: R80.8 Other proteinuria (principal); I10 Essential (primary) hypertension
CPT/HCPCS: 80051; 82088; 82310; 82533; 82565; 82570; 82784; 83835; 84156; 84244; 84443; 84520; 85025; 85610; 86334; 86335

== ENCOUNTER 2023-12-14 13:02 | Outpatient (REF) | payer MEDICAID, SELFPAY ==
--- NOTE | ~2023-12-14 | MR_ITS ---
MR CERVICAL SPINE WITHOUT CONTRAST CLINICAL INFORMATION: Worsening neck pain radiating to the right wrist. COMPARISON: Cervical spine MRI January 22, 2020. TECHNIQUE: Multiplanar multisequence MR imaging of the cervical spine obtained without IV contrast. FINDINGS: Cervical alignment is normal. The vertebral body heights are maintained. There is an intraosseous hemangioma within the C5 vertebral body. There are Modic type I endplate signal changes at C5-C6. There is no additional bone marrow edema. There are no acute fractures. Partially imaged intracranial compartment is unremarkable. The cervical arterial flow voids are maintained. Nonspecific enlarged epigastric lymph nodes bilaterally, greater on the left. C2-C3: Disc contour is normal. Bilateral facet arthropathy. No central canal stenosis and no foraminal stenosis. C3-C4: Disc contour is normal. Bilateral facet arthropathy. No central canal stenosis and no foraminal stenosis. C4-C5: Shallow disc protrusion and ligamentum flavum thickening result in worsening mild to moderate central canal stenosis and flattening of the ventral cord. Uncovertebral joint spurring and facet arthropathy result in worsening [id number] right-sided foraminal stenosis. C5-C6: A shallow right paracentral disc protrusion and ligamentum flavum thickening result in slightly worsening mild to moderate central canal stenosis and flattening of the right ventral cord. Uncovertebral joint spurring and facet arthropathy result in worsening [id number] right-sided foraminal stenosis. C6-C7: Slight annular disc bulge. Bilateral facet arthropathy. No central canal stenosis. Mild left-sided foraminal encroachment. C7-T1: Posterior disc contour is normal. No central canal stenosis and no foraminal stenosis. MR/MR cervical spine wo con IMPRESSION: * Mildly progressive spondylitic changes throughout the cervical spine resulting in slightly worsening mild to moderate central canal stenosis and flattening of the ventral cord at C4-C5 and C5-C6 levels. Slightly worsening mild to moderate right-sided foraminal stenosis at C4-C5 and C5-C6. * Nonspecific enlarged epigastric lymph nodes bilaterally, greater on the left. Electronically signed by: Wojciech Pan MD 01/08/2024 03:42 PM EDT
== END 2023-12-14 13:03 | disposition home or self-care (01) ==
LOC: HO.MRI 13:02
PROVIDERS: PCP Family Medicine; Visit Provider Family Medicine
DX: M54.2 Cervicalgia (principal); G89.29 Other chronic pain
CPT/HCPCS: 72141

== ENCOUNTER 2023-12-19 08:14 | Outpatient (REF) | payer MEDICAID, SELFPAY ==
--- NOTE | ~2023-12-19 | US_ITS ---
EXAMINATION: ULTRASOUND RENAL WITH DOPPLER CLINICAL INFORMATION: Hypertension. COMPARISON: None. TECHNIQUE: Real-time grayscale, color Doppler, and duplex Doppler evaluation of the kidneys and renal vasculature was performed. FINDINGS: RENAL MEASUREMENTS: Right: 11.3 x 5.3 x 5.1 cm (Sag x AP x TV) Left: 10.5 x 5.7 x 5.5 cm (Sag x AP x TV) The renal parenchyma appears normal. No hydronephrosis or nephrolithiasis. DOPPLER INTERROGATION: Aorta: 51 cm/sec Right Main Renal Artery: Proximal: 246 cm/sec Mid: 210 cm/sec Distal: 159 cm/sec Left Main Renal Artery: Proximal: 165 cm/sec Mid: 176 cm/sec Distal: 163 cm/sec Renal-Aortic Ratio (RAR): Right: 4.8 Left: 3.4 Bilateral upper pole, interpolar and lower pole [segmental] arteriolar resistive indices are within normal limits. Bilateral upper pole, interpolar and lower pole [segmental] arteriolar pulse doppler waveforms are unremarkable, with uniformly rapid upstrokes and no parvus et tardus configuration. US/US renal BI IMPRESSION: 1. There is hemodynamically significant right renal artery stenosis. 2. No hemodynamically significant left renal artery stenosis is seen.
--- NOTE | ~2023-12-19 | US_ITS ---
EXAMINATION: ULTRASOUND RENAL WITH DOPPLER CLINICAL INFORMATION: Hypertension. COMPARISON: None. TECHNIQUE: Real-time grayscale, color Doppler, and duplex Doppler evaluation of the kidneys and renal vasculature was performed. FINDINGS: RENAL MEASUREMENTS: Right: 11.3 x 5.3 x 5.1 cm (Sag x AP x TV) Left: 10.5 x 5.7 x 5.5 cm (Sag x AP x TV) The renal parenchyma appears normal. No hydronephrosis or nephrolithiasis. DOPPLER INTERROGATION: Aorta: 51 cm/sec Right Main Renal Artery: Proximal: 246 cm/sec Mid: 210 cm/sec Distal: 159 cm/sec Left Main Renal Artery: Proximal: 165 cm/sec Mid: 176 cm/sec Distal: 163 cm/sec Renal-Aortic Ratio (RAR): Right: 4.8 Left: 3.4 Bilateral upper pole, interpolar and lower pole [segmental] arteriolar resistive indices are within normal limits. Bilateral upper pole, interpolar and lower pole [segmental] arteriolar pulse doppler waveforms are unremarkable, with uniformly rapid upstrokes and no parvus et tardus configuration. US/US renal doppler IMPRESSION: 1. There is hemodynamically significant right renal artery stenosis. 2. No hemodynamically significant left renal artery stenosis is seen.
== END 2023-12-19 08:15 | disposition home or self-care (01) ==
LOC: HO.US 08:14
PROVIDERS: PCP Family Medicine; Visit Provider Internal Medicine Nephrology
DX: I10 Essential (primary) hypertension (principal); R80.8 Other proteinuria
CPT/HCPCS: 76775; 93975

== ENCOUNTER 2023-12-20 13:20 | Outpatient (REF) | payer MEDICAID, SELFPAY ==
--- NOTE | ~2023-12-20 | MR_ITS ---
EXAMINATION: MR WRIST WITHOUT AND WITH CONTRAST, RIGHT CLINICAL INFORMATION: Right wrist pain. Osteochondrosis. Kienbock's disease. COMPARISON: Multiple priors, most recent right hand radiographs dated 10/25/2023 and right wrist MRI dated 10/01/2011. TECHNIQUE: MRI of the wrist was performed before and after the intravenous administration of 10 mL Gadavist on a high-field scanner. FINDINGS: TRIANGULAR FIBROCARTILAGE: Intact. INTRINSIC LIGAMENTS: Intact. TENDONS/MEDIAN NERVE: Intact. ARTICULAR CARTILAGE/BONE: Mixed sclerosis and cystic change redemonstrated within the lunate, slightly progressed when compared to the prior examination. There is mild postcontrast enhancement within the cystic change. Bony remodeling has slightly progressed without significant fragmentation. Findings are consistent with chronic avascular necrosis (chronic Kienbock's disease). No acute fracture or dislocation. No concerning lytic or blastic osseous lesion. Intact articular cartilage. No additional postcontrast marrow enhancement. JOINT FLUID/SOFT TISSUES: Trace fluid and soft tissue edema with postcontrast enhancement along the volar aspect of the proximal carpal row in the region of the scaphoid and lunate which could represent an intrinsic ligament sprain/partial tear. No soft tissue mass or enhancing soft tissue lesion. MR/MR wrist RT wo/w con IMPRESSION: 1. Mixed sclerosis and cystic change redemonstrated within the lunate, slightly progressed when compared to the prior examination. Bony remodeling has slightly progressed without significant fragmentation. Findings are consistent with chronic avascular necrosis (chronic Kienbock's disease). 2. Trace fluid and soft tissue edema with postcontrast enhancement along the volar aspect of the proximal carpal row in the region of the scaphoid and lunate which could represent an intrinsic ligament sprain/partial tear. 3. No soft tissue mass or enhancing soft tissue lesion.
[2023-12-20] MEDS: gadobutroL 10 ML VIAL IVPUSH (14:42)
== END 2023-12-20 13:21 | disposition home or self-care (01) ==
LOC: HO.MRI 13:20
PROVIDERS: PCP Family Medicine; Visit Provider Physician Assistant
DX: M92.211 Osteochondrosis (juvenile) of carpal lunate [Kienbock], right hand (principal)
CPT/HCPCS: 73223; A9585

== ENCOUNTER → 2024-01-23 15:01 | Outpatient (BNVA) | payer MEDICAID, SELFPAY | PROVIDERS: PCP Family Medicine; Visit Provider Physician Assistant Surgical ==

== ENCOUNTER 2024-02-07 14:25 | Outpatient (AMB) | payer MEDICAID, SELFPAY ==
--- NOTE | 2024-02-07 13:24 | MHC.OFFVIS ---
Vital Signs 02/07/24 14:34 Height 5 ft 2 in Weight 238 lb 6.4 oz BMI 43.6 Intake Visit Reasons: ov- right wrist MRI review Intake Note: Margarito is a 38 year old 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 female who presents today for a right wrist MRI review. Patient reports numbness and pain at the finger tips and on the dorsal aspect of the wrist. Denies tingling or finger locking. Denies injuries or surgeries to the right hand. Patient shared she has had multiple normal EMG studies, however her most recent study done in October, was abnormal. Allergies Seasonal Allergies Allergy (Intermediate, Unverified 02/07/24 14:34) Nasal congestion naproxen [NAPROXEN] Allergy (Unknown, Verified 02/07/24 14:34) STOMACH PAIN, DIARRHEA, VOMITING PFSH Medical History (Updated 02/07/24 @ 13:26 by Rafita Downey) Obesity Palpitations Kienb?ck's disease Migraines Headache Hypertension Surgical History (Updated 01/23/24 @ 15:47 by Della Birmingham CMA) Hx of section History of tubal ligation Family History (Updated 01/23/24 @ 15:19 by Della Birmingham CMA) Family/Other No problems noted. 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 Review of Systems Const All systems reviewed & are unremarkable except as noted in HPI and below Physical Exam Vital Signs: BMI result Body Mass Index 43.6 Const General: cooperative, healthy appearing and no acute distress Orientation/consciousness: patient oriented x3 HEENT Head: Yes normocephalic and Yes atraumatic Eyes EOM: EOMs intact bilaterally Resp Effort & Inspection: normal respiratory effort and able to speak in complete sentences Cardio Jugular venous distension: no JVD Skin General skin exam: turgor normal Rashes: no rashes Neuro General: patient oriented x3 Extrem Other: Evaluation of Upper Extremity: The patient is alert, oriented, and in no acute distress Neuro: Median, Ulnar, Radial nerves motor and sensory intact and sensation is normal to the tips of all digits No intrinsic or thenar wasting. Good finger cross and APB muscle belly firing Vascular: Cap refill brisk She can make a fist and extend all of her digits. No locking or catching. She does have some tenderness directly over the lunate, and radial lunate joint. She also localizes her pain to the dorsal central aspect of her right wrist. Right wrist extension: Perhaps 40 degrees Right wrist flexion: Perhaps 20 degrees Good prono-supination Right EMG nerve conduction study: Impression: 1. Right mild median ulnar neuropathy across the carpal tunnel 2. Right mild ulnar neuropathy across the cubital tunnel Performed by Dr. Harmon on 10/31/2023 Right wrist radiographs: From 10/25/2023 were reviewed by me. Both this and the MRI show that she is somewhat ulnar minus, with some sclerosis and cystic formation within the body of the lunate most consistent with Kienbock's disease. Right wrist MRI: FINDINGS: TRIANGULAR FIBROCARTILAGE: Intact. INTRINSIC LIGAMENTS: Intact. TENDONS/MEDIAN NERVE: Intact. ARTICULAR CARTILAGE/BONE: Mixed sclerosis and cystic change redemonstrated within the lunate, slightly progressed when compared to the prior examination. There is mild postcontrast enhancement within the cystic change. Bony remodeling has slightly progressed without significant fragmentation. Findings are consistent with chronic avascular necrosis (chronic Kienbock's disease). No acute fracture or dislocation. No concerning lytic or blastic osseous lesion. Intact articular cartilage. No additional postcontrast marrow enhancement. JOINT FLUID/SOFT TISSUES: Trace fluid and soft tissue edema with postcontrast enhancement along the volar aspect of the proximal carpal row in the region of the scaphoid and lunate which could represent an intrinsic ligament sprain/partial tear. No soft tissue mass or enhancing soft tissue lesion. IMPRESSION: 1. Mixed sclerosis and cystic change redemonstrated within the lunate, slightly progressed when compared to the prior examination. Bony remodeling has slightly progressed without significant fragmentation. Findings are consistent with chronic avascular necrosis (chronic Kienbock's disease). 2. Trace fluid and soft tissue edema with postcontrast enhancement along the volar aspect of the proximal carpal row in the region of the scaphoid and lunate which could represent an intrinsic ligament sprain/partial tear. 3. No soft tissue mass or enhancing soft tissue lesion. 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 Right carpal tunnel syndrome, mild Symptoms intermittent but daily 3. Right cubital tunnel syndrome, mild Unclear how symptomatic at this time. Patient is going to be mindful of how much ulnar-sided numbness she has date today. I educated her about these conditions. We discussed operative and non operative treatment options. I am recommending surgery in the form of a right distal radius osteotomy and shortening, along with a right carpal tunnel release. I educated her about these procedures. Our goal with regards to her Kienbock's disease is to try to arrest the condition before we have collapse of the lunate, and hope for healing of the lunate. The risks and benefits of operative treatment were discussed with the patient and the patient wishes to proceed with surgery. These risks include, but are not limited to risk of damage to blood vessels, nerves, tendons, infection, recurrence, incomplete relief of preoperative symptoms, persistent pain, nonunion or malunion, continued progression of her Kienbock's disease, possible need for further surgery and the risks associated with regional blocks and anesthesia. The plan is to take the patient to the operating room sometime in the next couple of months for the following procedures: 1. Right distal radius joint leveling, shortening osteotomy 2. Right carpal tunnel release All of the preoperative paperwork including the consent was filled out today. All the patient's questions were answered. The patient understands that they will be contacted by our dehydration plant operator soon to schedule this procedure The patient denies having any heart lung kidney problems asthma or diabetes. She is on Trulicity, and our dehydration plant operator will contact anesthesia to find out when she needs to stop this medication prior to surgery. 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
[2024-02-07 14:34] VITALS: BMI 43.6
== END 2024-02-07 15:22 | disposition home or self-care (01) ==
PROVIDERS: PCP Family Medicine; Referring Provider Family Medicine; Visit Provider Orthopaedic Surgery
DX: M93.1 Kienbock's disease of adults (principal)
CPT/HCPCS: 99214

== ENCOUNTER → 2024-02-07 14:25 | Outpatient (BNVA) | payer MEDICAID, SELFPAY | PROVIDERS: PCP Family Medicine; Visit Provider Orthopaedic Surgery | DX: M93.1 Kienbock's disease of adults (principal); Z79.85 Long-term (current) use of injectable non-insulin antidiabetic drugs | CPT/HCPCS: 99212 ==

== ENCOUNTER → 2024-02-08 09:46 | Outpatient (BNVA) | payer MEDICAID, SELFPAY | PROVIDERS: PCP Family Medicine; Visit Provider Surgery ==

== ENCOUNTER 2024-02-22 14:21 | Outpatient (AMB) | payer MEDICAID, SELFPAY ==
--- NOTE | 2024-02-22 14:33 | HO.NEPHOV ---
Vital Signs 02/22/24 14:34 Height 5 ft 2 in Weight 237 lb BMI 43.3 BP 130/82 Blood Pressure Location Lt brachial Position Sitting Pulse 102 H Pulse Source Pulse Oximeter Pulse Oximetry (%) 97 Oxygen Delivery Method Room Air Intake Visit Reasons: Feb E Learning Designer Required: No Accompanied by: Self / Same As Patient Allergies Seasonal Allergies Allergy (Intermediate, Verified 02/22/24 14:35) Nasal congestion naproxen [NAPROXEN] Allergy (Unknown, Verified 02/22/24 14:35) STOMACH PAIN, DIARRHEA, VOMITING HPI Comments Details: Thank you for referring Ms. Ferrell for follow up of proteinuria and hypertension. She has been hypertensive since 9 years after her second child ( has 3 children). She is 38 years of age with prediabetes, high BMI and hypertension. She has been on Trulicity with some weight loss. She denies any retinopathy or hematuria. She is on ARB/HCTZ/calcium channel jaye. ( labetalol discontinued). She has no history of nephrolithiasis. She denies any new bone pain or back pain. She has no history of hypercalcemia. She is on multiple antihypertensive medications. She does not have any coronary artery disease, carotid disease, CVA, CHF, NANCY or PAD. She denies epistaxis, recurrent sinusitis, sore throat, photosensitivity, new skin rashes. She has no family history of any he has had a renal transplantation. One of her aunts has lupus. She has no history of any sensorineural deafness or microscopic hematuria. She has no history of sweating issues. She claims to be compliant with her medications. [facility] Medical History (Updated 02/07/24 @ 13:26 by Rafita Downey) Obesity Palpitations Kienb?ck's disease Migraines Headache Hypertension Surgical History Hx of section History of tubal ligation Family History Family/Other No problems noted. 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 Review of Systems Const All systems reviewed & are unremarkable except as noted in HPI and below Physical Exam Vital Signs: Last Vital Signs Pulse 102 H 02/22/24 14:34 BP 130/82 02/22/24 14:34 Pulse Ox 97 02/22/24 14:34 Oxygen Delivery Method Room Air 02/22/24 14:34 BMI result Body Mass Index 43.3 Const General: comfortable and no acute distress Orientation/consciousness: patient oriented x3 HEENT Head: Yes normocephalic Mouth: Normal oral and palatal mucosa present Eyes EOM: EOMs intact bilaterally Neck Neck: Yes supple Resp Auscultation: clear to auscultation bilaterally Cardio Jugular venous distension: no JVD Rate: regular rate GI Palpation (GI): Soft to palpation Auscultation: normal bowel sounds General: Yes no CVA tenderness Back/Spine/Pelvis Back: no CVA tenderness Skin General skin exam: no rashes or lesions noted Neuro General: patient oriented x3 and moves all extremities Extrem General: Yes no pedal edema Results Reviewed Nephrology Results: Hgb 13.0 g/dl (12.0-16.0) 12/11/23 WBC 9.5 X10*3/uL (4.8-10.8) 12/11/23 Plt Count 219 X10*3/uL (160-400) 12/11/23 Sodium 136 mmol/L (135-145) 12/11/23 Potassium 4.1 mmol/L (3.3-5.1) 12/11/23 Chloride 104 mmol/L (96-108) 12/11/23 Carbon Dioxide 26 mmol/L (22-29) 12/11/23 BUN 10 mg/dL (9-16) 12/11/23 Creatinine 0.76 mg/dL (0.5-1.4) 12/11/23 Calcium 8.7 mg/dL (8.4-10.2) 12/11/23 Urine Creatinine 85.41 mg/dL 12/11/23 Protein/Creatinin Ratio 0.83 (<0.2) H 12/11/23 Renal US 12/19/23 Assessment & Plan Assessment & Plan (1) Proteinuria: Code(s): R80.9 - Proteinuria, unspecified Category: Medical Qualifiers: Proteinuria type: other Qualified Code(s): R80.8 - Other proteinuria (2) Hypertension: Code(s): I10 - Essential (primary) hypertension Category: Medical Qualifiers: Hypertension type: primary hypertension Qualified Code(s): I10 - Essential (primary) hypertension Plan Ms. Ferrell has proteinuria and hypertension. She has right NANCY. Her high BMI is putting her at risk for secondary FSGS. She has prediabetes. Her 24 hour urine for protein is 918 mg. I ordered renal biopsy. She may need angioplasty and stenting of right NANCY. Lipid profile OK. Answered all questions. Follow-up appointment given Orders: Orders CT biopsy renal LT Today R80.8 - Other proteinuria Coding Level of Care Code Est Pt Level 4 (42047) Diagnoses Other proteinuria R80.8 Proteinuria type: other Primary hypertension I10 Hypertension type: primary hypertension
[2024-02-22 14:34] VITALS: BP 130/82; PULSE 102; O2SAT 97; BMI 43.3
== END 2024-02-22 15:03 | disposition home or self-care (01) ==
PROVIDERS: PCP Family Medicine; Visit Provider Internal Medicine Nephrology
DX: R80.8 Other proteinuria (principal); I10 Essential (primary) hypertension
CPT/HCPCS: 99214

== ENCOUNTER → 2024-02-22 14:21 | Outpatient (BNVA) | payer MEDICAID, SELFPAY | PROVIDERS: PCP Family Medicine; Visit Provider Internal Medicine Nephrology | DX: I10 Essential (primary) hypertension (principal); R80.8 Other proteinuria; R73.03 Prediabetes; Z79.899 Other long term (current) drug therapy | CPT/HCPCS: 99212 ==

== ENCOUNTER 2024-04-22 09:35 | Day surgery (SDC) | payer MEDICAID, SELFPAY ==
[2024-04-22] VITALS (24 sets, daily range): BP systolic 103–162; BP diastolic 57–98; PULSE 66–91; RESP 9–21; TEMP 36.6–36.9; O2SAT 97–100; BMI 42.4
--- NOTE | ~2024-04-22 | CT_ITS ---
Proteinuria. Hypertension. Right renal artery stenosis. PROCEDURES: 1. Limited preprocedure CT of the abdomen. Permanent images saved in PACS. 2. CT-guided nontargeted biopsy of the left kidney. 3. Limited postprocedure CT of the abdomen. Permanent images saved in PACS. CLINICIANS: Moreno Bran PA-C MEDICATIONS: -Versed 2 mg, Fentanyl 100 mcg, 20 mg hydralazine, 20 mg labetalol, lidocaine 1% 10 mL SQ -Antibiotics: None -For additional details, please see nursing flowsheet. COMPLICATIONS: None ESTIMATED BLOOD LOSS: < 5 ml CONTRAST: None SPECIMENS: 3 x 18 g cores were placed in saline MODERATE SEDATION TIME: 35 min PROCEDURE NOTE: The procedure, risks, benefits, and alternatives were carefully explained to the patient and written informed consent was obtained. The patient was placed prone on the CT table. A timeout was performed. A limited CT of the abdomen was performed to localize the left kidney and choose appropriate needle entry and trajectory. The patient was prepped and draped in usual sterile fashion. The skin and deeper soft tissues were anesthetized with lidocaine. Under CT guidance, a 17 gauge trocar needle was advanced to the left kidney. An 18 gauge biopsy device was inserted through the trocar needle advanced into the left lower pole of the kidney. Once a safe blood pressure of 130/80 was established, a total of 3, 18 gauge cores were performed. The specimens were placed in saline. A Gelfoam slurry was then administered through the trocar needle and into the left perinephric space. The needle was removed. A dry dressing was applied and secured with Tegaderm. There were no immediate complications. The patient was stable after the procedure and was transferred to the post anesthesia care unit. The procedure was done under moderate sedation with a dedicated nurse for monitoring of vital signs. CT/CT biopsy renal LT Impression: CT-guided nontargeted left renal biopsy This procedure was performed by Moreno Bran PA-C and supervised by Dr. Martinez. Electronically signed by: Odell Martinez MD 04/25/2024 02:51 PM [facility]
[2024-04-22 10:00] LABS: MANUAL DIFF FLAG NO
[2024-04-22 10:02] LABS: Basophils Absolute Auto 0.1 X10*3/uL (0.0-0.2); Basophils Percent Auto 0.7 % (0-2); Eosinophils Absolute Auto 0.7 X10*3/uL (0.0-0.4); Eosinophils Percent Auto 6.5 % (0-4); Hematocrit 42.7 % (37.0-47.0); Hemoglobin 13.8 g/dl (12.0-16.0); Imm Gran Abs Auto 0.04 X10*3/uL (0.00-0.03); Imm Gran Pct Auto 0.4 % (0.0-0.4); Lymphocytes Absolute Auto 4.2 X10*3/uL (1.2-4.9); Lymphocytes Percent Auto 39.6 % (20-40); Mean Corpuscular HGB Conc 32.3 g/dl (31.0-35.0); Mean Corpuscular Hemoglobin 28.2 pg (27.0-33.0); Mean Corpuscular Volume 87.3 fL (80.0-98.0); Mean Platelet Volume 11.3 fL (9.4-12.3); Monocytes Absolute Auto 0.8 X10*3/uL (0.1-1.2); Monocytes Percent Auto 7.5 % (2-11); Neutrophils Absolute Auto 4.8 x10*3/uL (2.0-8.3); Neutrophils Percent Auto 45.3 % (45-73); Platelet Count 220 X10*3/uL (160-400); Red Blood Count 4.89 X10*6/uL (4.20-5.50); Red Cell Distribution Width 13.9 % (11.0-16.0); White Blood Count 10.6 X10*3/uL (4.8-10.8)
[2024-04-22 10:13] LABS: INTERNATIONAL NORM RATIO 0.9 (0.9-1.1); Prothrombin Time 10.6 SEC (10.9-12.4)
[2024-04-22 10:16] LABS: Partial Thromboplastin Time 31.2 SEC (26.0-36.8)
--- NOTE | 2024-04-22 10:20 | MHC.SHP ---
Pre-Procedural Eval Section A - 24 Hr Update-Section A only Date of Service: 04/22/24 Section B - Complete if H&P > 30 days Chief Complaint: proteinuria Details of Present Illness: 38 y/o female with proteinuria, htn, and NANCY. Nephrology requests a kidney biopsy. Relevant Family History (Specify if Yes): No Relevant Social History: None Present Medications: see Short Stay Collaborative assessment Medical History: Significant History History of Previous Operations: No relevant previous surgery Allergies: Allergies Allergy/AdvReac Type Severity Reaction Status Date / Time Seasonal Allergies Allergy Intermediate Nasal Verified 02/22/24 14:35 congestion naproxen [NAPROXEN] Allergy Unknown STOMACH Verified 02/22/24 14:35 PAIN, DIARRHEA, VOMITING Review of Systems Sugical H&P ROS: Negative: Constitution, Cardiovascular, Respiratory and Neurological Exam Surgical H&P Exam: Normal: Heart, Normal: Lungs, Normal: Abdomen (soft, obese, nt), Normal: Skin and Normal: Neurological Plan 38 y/o female with proteinuria, htn and NANCY -Non-targeted renal biopsy Time Spent With Patient Time: Total time managing care of this patient today ____ minutes.
[2024-04-22] MEDS: hydrALAZINE HCl 20 MG/ML VIAL IVPUSH (10:27)
[2024-04-22] MEDS: Midazolam HCl/PF 2 MG/2 ML VIAL 1 MG IVPUSH ×3 (10:53→11:07)
[2024-04-22] MEDS: fentaNYL citrate/PF 100 MCG/2 ML VIAL 50 MCG IVPUSH (10:53)
[2024-04-22] MEDS: fentaNYL citrate/PF 100 MCG/2 ML VIAL 25 MCG IVPUSH ×2 (11:00→11:08)
[2024-04-22] MEDS: Labetalol HCL 100 MG/20 ML VIAL 20 MG IVPUSH ×2 (11:04→11:16)
== END 2024-04-22 14:33 | disposition home or self-care (01) ==
LOC: HO.SSS 09:36
PROVIDERS: Physician Assistant Surgical; Radiology Vascular & Interventional Radiology; PCP Family Medicine; Visit Provider Internal Medicine Nephrology
DX: R80.9 Proteinuria, unspecified (principal); I10 Essential (primary) hypertension; I70.1 Atherosclerosis of renal artery; R73.03 Prediabetes; J45.909 Unspecified asthma, uncomplicated; R00.2 Palpitations; M93.1 Kienbock's disease of adults; G43.909 Migraine, unspecified, not intractable, without status migrainosus; E66.9 Obesity, unspecified; Z68.41 Body mass index [BMI] 40.0-44.9, adult; Z88.8 Allergy status to other drugs, medicaments and biological substances; Z79.85 Long-term (current) use of injectable non-insulin antidiabetic drugs; Z79.899 Other long term (current) drug therapy; Z98.51 Tubal ligation status
CPT/HCPCS: 36415; 50200; 77012; 85025; 85610; 85730; 86850; 86900; 86901; 88300; 88305; 88313; 88346; 88348; 88350; 99152; 99153; J0360; J1920; J2003; J2250; J2310; J3010

== ENCOUNTER → 2024-04-22 10:11 | Outpatient (BNV) | payer MEDICAID, SELFPAY | PROVIDERS: PCP Family Medicine; Visit Provider Physician Assistant Surgical | DX: R80.9 Proteinuria, unspecified (principal) | CPT/HCPCS: 50200; 77012 ==

== ENCOUNTER 2024-05-09 14:12 | Outpatient (AMB) | payer MEDICAID, SELFPAY ==
--- NOTE | 2024-05-09 14:14 | HO.NEPHOV_ITS ---
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 Ferrell was seen for follow up of proteinuria and hypertension. She has been hypertensive since 9 years after her second child ( has 3 children). She is 38 years of age with prediabetes, high BMI and hypertension. She has been on Trulicity with some weight loss. She denies any retinopathy or hematuria. She is on ARB/HCTZ/calcium channel jaye. ( labetalol discontinued). She has no history of nephrolithiasis. She denies any new bone pain or back pain. She has no history of hypercalcemia. She is on multiple antihypertensive medications. She does not have any coronary artery disease, carotid disease, CVA, CHF, NANCY or PAD. She denies epistaxis, recurrent sinusitis, sore throat, photosensitivity, new skin rashes. She has no family history of any he has had a renal transplantation. One of her aunts has lupus. She has no history of any sensorineural deafness or microscopic hematuria. She has no history of sweating issues. She claims to be compliant with her medications. [facility] [place] Medical History (Updated 04/22/24 @ 09:49 by Juliana Luther RN) Marijuana use Asthma Obesity Palpitations Kienb?ck's disease Migraines Headache Hypertension Surgical History Hx of section History of tubal ligation Family History Family/Other No problems noted. 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 Review of Systems Const All systems reviewed & are unremarkable except as noted in HPI and below Physical Exam Vital Signs: Last Vital Signs Pulse 93 05/09/24 14:16 BP 122/80 05/09/24 14:16 Pulse Ox 97 05/09/24 14:16 Oxygen Delivery Method Room Air 05/09/24 14:16 BMI result Body Mass Index 41.7 Const General: comfortable and no acute distress Orientation/consciousness: patient oriented x3 HEENT Head: Yes normocephalic Mouth: Normal oral and palatal mucosa present Eyes EOM: EOMs intact bilaterally Neck Neck: Yes supple Resp Auscultation: clear to auscultation bilaterally Cardio Jugular venous distension: no JVD Rate: regular rate GI Palpation (GI): Soft to palpation Auscultation: normal bowel sounds General: Yes no CVA tenderness Back/Spine/Pelvis Back: no CVA tenderness Skin General skin exam: no rashes or lesions noted Neuro General: patient oriented x3 and moves all extremities Extrem General: Yes no pedal edema Results Reviewed Nephrology Results: Hgb 13.8 g/dl (12.0-16.0) 04/22/24 WBC 10.6 X10*3/uL (4.8-10.8) 04/22/24 Plt Count 220 X10*3/uL (160-400) 04/22/24 Renal US 12/19/23 Assessment & Plan Assessment & Plan (1) Hypertension: Code(s): I10 - Essential (primary) hypertension Category: Medical Qualifiers: Hypertension type: primary hypertension Qualified Code(s): I10 - Essential (primary) hypertension (2) Proteinuria: Code(s): R80.9 - Proteinuria, unspecified Category: Medical Qualifiers: Proteinuria type: other Qualified Code(s): R80.8 - Other proteinuria Plan Ms. Ferrell has proteinuria and hypertension. She has right NANCY. Her high BMI is putting her at risk for secondary FSGS. She has prediabetes. She may be a candidate for Jardiance. Her 24 hour urine for protein is 918 mg. She had renal biopsy, results are pending. She does not need angioplasty and stenting of right NANCY now. Lipid profile OK. Answered all questions. Follow-up appointment given Orders: Orders Electrolytes 3 Months I10 - Essential (primary) hypertension, R80.8 - Other proteinuria Blood Urea Nitrogen 3 Months I10 - Essential (primary) hypertension, R80.8 - Other proteinuria Creatinine 3 Months I10 - Essential (primary) hypertension, R80.8 - Other proteinuria Protein Creatinine Ratio, Ur 3 Months I10 - Essential (primary) hypertension, R80.8 - Other proteinuria Coding Level of Care Code Est Pt Level 4 (00846) Diagnoses Primary hypertension I10 Hypertension type: primary hypertension Other proteinuria R80.8 Proteinuria type: other
[2024-05-09 14:16] VITALS: BP 122/80; PULSE 93; O2SAT 97; BMI 41.7
== END 2024-05-10 07:49 | disposition home or self-care (01) ==
PROVIDERS: PCP Family Medicine; Visit Provider Internal Medicine Nephrology
DX: I10 Essential (primary) hypertension (principal); R80.8 Other proteinuria
CPT/HCPCS: 99214

== ENCOUNTER → 2024-05-09 14:12 | Outpatient (BNVA) | payer MEDICAID, SELFPAY | PROVIDERS: PCP Family Medicine; Visit Provider Internal Medicine Nephrology | DX: I10 Essential (primary) hypertension (principal); R80.8 Other proteinuria | CPT/HCPCS: 99212 ==

== ENCOUNTER 2024-06-11 08:48 | Outpatient (REF) | payer MEDICAID, SELFPAY ==
--- OUTSIDE RECORDS SUMMARY | 2024-06-12 08:52 | XMS_ITS | Clinical Summary ---
Author Organization [employer] Address [address] [facility] [address] [place] [address] Care Team Providers Care Microcomputer Support Specialist Name Role Phone TraciDella judd Primary Care Provider + [phone] Allergies Active Allergy Reactions Criticality Noted Date Comments Naproxen 01/03/2019 Other reaction(s): Stomach cramps Other Reaction(s): STOMACH PAIN, DIARRHEA, VOMITING Medications losartan (Cozaar) 100 MG tablet Take 1 tablet (100 mg) by mouth in the morning. 90 tablet 3 03/27/20 23 Active hydroCHLOROthi azide (HYDRODiuril) 25 MG tablet TAKE 1 TABLET(25 MG) BY MOUTH IN THE MORNING 90 tablet 3 09/20/19 24 Active Blood Pressure kit 1 each Once per day. 1 kit 10/19/19 24 Active acetaminophen (Tylenol 8 Hour) 650 MG ER tablet Take 650 mg by mouth every 6 (six) hours if needed for mild pain. 09/20/19 24 Active dulaglutide (Trulicity) 1.5 MG/0.5ML solution pen-injector Inject 1.5 mg under the skin 1 (one) time per week. 4 each 11 10/19/19 24 Active amitriptyline (Elavil) 10 MG tablet Take 1-2 tablets (10-20 mg) by mouth at bedtime. 60 tablet 3 10/19/19 24 Active Diclofenac Sodium 1 % gel Apply 2 g topically if needed in the morning, at noon, in the evening, and at bedtime (pain). 150 g 3 10/19/19 24 Active lidocaine (Lidoderm) 5 % patch Apply 1-2 patches topically Once per day. Remove & discard patch within 12 hours or as directed by MD. 60 patch 3 10/19/19 Active amLODIPine (Norvasc) 10 MG tablet Take 1 tablet (10 mg) by mouth Once per day. 90 tablet 3 11/20/19 24 Active metoprolol succinate XL (Toprol XL) 50 MG 24 hr tablet Take 1 tablet (50 mg) by mouth Once per day. Do not crush or chew. 90 tablet 3 02/09/20 24 Active fexofenadine (Li) 180 MG tablet Take 1 tablet (180 mg) by mouth Once per day. 90 tablet 3 02/09/20 24 Active triamcinolone (Nasacort) 55 MCG/ACT nasal inhaler Administer 2 sprays into each nostril Once per day. 16.5 g 11 02/09/20 24 Active azelastine (Astelin) 0.1 % nasal spray Administer 1 spray into each nostril 2 times daily. Use in each nostril as directed 30 mL 11 02/09/20 24 Active albuterol 108 (90 Base) MCG/ACT inhaler Inhale 2 puffs every 4 (four) hours if needed for wheezing. 18 g 02/26/20 24 Active Dextromethorph an-guaiFENesin (Mucinex DM) 30-600 MG tablet sustained-rele ase 12 hour Use 1 tab TID 28 tablet 02/26/20 Active predniSONE (Deltasone) 20 MG tablet TAKE 2 TABLETS(40 MG) BY MOUTH DAILY FOR 5 DAYS 10 tablet 06/06/19 25 Active predniSONE (Deltasone) 20 MG tablet Take 2 tablets (40 mg) by mouth Once per day for 5 days. 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 [address] [place] [address] Della Viera DO 06/08/[address] [facility]IN [facility] [address] [place] [address] Minal Quintanilla MD 06/04/[address] [facility] [address] [place] [address] Minal Quintanilla MD 05/21/2024 2:30 PM EST Office Visit 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 MED[facility]INE [address] [place] [address] Aubrey Donohue MA Yas recall 04/22/2024 Orders Only GENERIC EXTERNAL DATA DEPARTMENT Provider, Generic External Data from Last 3 Months Immunizations Name Administration Dates Next Due Influenza injectable quadriv alent IIV4 with preservative 01/16/2019,02/21/2018,01/20/2016,2014 Influenza injectable quadriv alent preservative free 03/27/2023,04/15/2021 Influenza, Split (incl. mynor fied surface antigen) 02/04/2013,05/15/2012 MMR 05/25/2023 Tdap 05/17/2023,01/02/2014 Varicella 05/25/2023 Social History Tobacco Use Types Packs/Day Years Used Date Smoking Tobacco: Never Passive Smoke Exposure: Never Smokeless Tobacco: Never Tobacco Cessation:Counseling Given: Not Answered Alcohol Use Standard Drinks/Week Comments Never 0 (1 standard drink = 0.6 oz pur e alcohol) Depression Answer Date Recorded Patient Health Questionnaire-9 Score 0 02/09/2024 Patient Health Questionnaire-9 Score 0 02/09/2024 Last PHQ-9: Questionnaire Data Not on file 1 Housing Stability Answer Date Recorded What is your housing situation today? I have nasrin kruger 02/09/[address] you li ve. Do you have problems with any of the following? None of the above 02/09/2024 Food Insecurity Answer Date Recorded Within the past 12 months, y ou worried that your food would run out before you got money to buy more: Never True 02/09/2024 Within the past 12 months,th e food you bought just didn't last and you didn't have enough money to get more: Never True 08/2023 Transportation Answer Date Recorded In the past 12 months, has l ack of transportation kept you from medical appts, meetings, work or from getting things needed for daily living? No 02/09/2024 Utilities Answer Date Recorded In the past 12 months, has t he electric, gas, oil or water company threatened to shut off services in your home? No 02/09/2024 Depression Answer Date Recorded Patient Health Questionnaire-2 Score 0 02/09/2024 Internet Access Answer Date Recorded Internet Access Q1 Yes 02/09/2024 Internet Access Q2 Not on file 02/09/2024 Comments Unknown Sex and Gender Information Value Date Recorded Sex Assigned at Female 03/07/2022 10:20 AM EDT Legal Sex Female 10:20 AM EDT Gender Identity Female 03/07/2022 10:20 AM EDT Sexual Orientation Straight 03/07/2022 10 :20 AM EDT Last Filed Vital Signs Vital Sign Reading Time Taken Comments Blood Pressure 124/84 02/26/2024 9:24 AM EDT Pulse 86 02/26/2024 9:24 AM EDT Temperature 36.7 ??C (98 ??F) 02/26/2024 9:24 AM EDT Respiratory Rate 17 02/26/2024 9:24 AM EDT Oxygen Saturation 97% 10/14/2022 11:37 AM EDT Inhaled Oxygen Concentration - - Weight 108 kg (238 lb 3.2 oz) 02/26/2024 9:24 AM EDT Height 157.5 cm (5' 2 ) 02/26/2024 9:24 AM EDT Body Mass Index 43.57 02/26/2024 9:24 AM EDT Plan of Treatment Health Maintenance Due Date Last Done Comments Alcohol/Substance Use Screening 1998 Family Planning (PISQ) 2001 Hepatitis B Vaccines (1 of 3 - 19+ 3-dose series) 2005 Pap Smear 07/19/2007 COVID-19 Vaccine ( season) 2024 Influenza Vaccine (#1) 2024 , 04/15/2021, 01/16/2019, Additional history exists Cervical Cancer Screening 03/13/2024 HPV/Cotest 03/13/2024 03/13/2019 Diabetes: Hemoglobin A1C 11/06/2024 024, 09/14/2022, 08/16/2021 Depression Screening 02/08/2025 02/09/2024, 02/09/20 24 SDOH Screening 02/08/2025 02/09/2024 Tobacco Screening 06/07/2025 06/07/2024 Lipid Panel 11/26/2028 11/27/2023, 0706/2023, 09/14/2022, Additional history exists DTaP/Tdap/Td Vaccines (3 - Td or Tdap) 05/17/2033 05/17/2023, 01/02/2014 Zoster Vaccines (1 of 2) 2036 RSV Patients and Patients Aged 60 years or older (1 - 1-dose 75+ series) 2061 HIV Screening Completed 11/07/2023, 09/05, 08/16/2021 Hepatitis C Screening Completed 11/07/2023 , 09/14/2022, 08/16/2021 HIB Vaccines Aged Out No longer eligi ble based on patient's age to complete this topic HPV Vaccines Aged Out No longer eligi ble based on patient's age to complete this topic Hepatitis A Vaccines Aged Out No long er eligible based on patient's age to complete this topic IPV Vaccines Aged Out No longer eligi ble based on patient's age to complete this topic Meningococcal Vaccine Aged Out No omar chava eligible based on patient's age to complete this topic Pneumococcal Vaccine: Pediatrics (0 to 5 Years) and At-Risk Patients (6 to 49) Years) Aged Out No longer eligible based on patient's age to complete this topic RSV under 20 months Aged Out No longe r eligible based on patient's age to complete this topic Rotavirus Vaccines Aged Out No longer eligible based on patient's age to complete this topic Procedures Procedure Name Priority Date/Time Associated Diagnosis Comments OTHER REF TEST - MISC Routine 04/22/2024 11:31 AM EST GROSS EXAM WITHOUT SLIDES Routine 04/22/2024 11:[address] GUIDED PERCUTANEOUS BIOPSY RENAL LEFT Routine 04/22/2024 10:41 AM EST TYPE AND SCREEN Routine 04/22/2024 9:57 AM EST CBC WITH AUTO DIFFERENTIAL Routine 04/22/2024 9:57 AM EST LIPID PANEL, STANDARD Routine 11/27/2023 12:00 PM EDT Essential hypertension HEPATITIS C AB W/REFL TO HCV RNA, QN, PCR Routine 11/07/2023 3:37 PM EDT Healthcare maintenance HIV 1/2 ANTIGEN/ANTIBODY, FOURTH GENERATION W/RFL Routine 11/07/2023 3:37 PM EDT Healthcare maintenance HEMOGLOBIN A1C Routine 11/07/2023 3:37 PM EDT Essential hypertension ZZZ HISTORICAL HPV MRNA E6/E7 Routine 03/13/2019 2:45 PM EST from Last 3 Months or Most Recently Relevant to Health Maintenance Results * Gross Exam without slides (04/22/2024 11:31 AM EST) 04/22/2024 11:3 1 AM EST 04/22/2024 11:47 AM EST Narrative [facility] - 04/24/2024 9:57 AM EST ----- ------- Name: Margarito Paige Girish ?Age/Sex: 38/F ? : 1985 Unit#: [id number] ?? Attend Dr: Antonio Mayer MD ?Re04/22/24 ?Status: DEP SDC ? Location: HO.SSS ?Disch: ? ----- ------- SPEC : [id number] ? RECD: 04/22/24-1146 ? STATUS: ??SOUT ? REQ NUM: [id number] ? ZEYAD: 04/22/24-1131 ? SUBM DR: Moreno Bran PA ? ENTERED: ??04/22/24-1151 ?SP TYPE: Surgical ? OTHR DR: Antonio Mayer MD ?Della Viera DO ORDERED: ??GO, EM1, Immunofl., Add. immunofl., [id number] Ref Lab T, [id number] Ref Lab T ? Diagnosis ?? Kidney, left, core needle biopsy: ??Specimen forwarded to [facility] for ?? processing and analysis. ??Their report to follow. ?Clinical History Proteinuria, HTN, right renal artery stenosis ? Material Received ?? Left kidney-3x18 g cores ? Gross Description Received on saline soaked Telfa labeled ?lt. renal core are 3 thin and delicate nur and nur-pink cylindrical threads of tissue ranging from 1.2-1.8 cm in length, forwarded to [facility], [facility] for further testing. ??Gross description only. CEDS Copies To: ?? Antonio Mayer MD ?? [facility] ?? [address] [place] [address] [address] ?? [place] [address] ?? [phone] ?? [email or web address] ?? Della Viera DO ?? [facility] ?? [address] ?? [place] [address] ?? [phone] ?? Moreno Bran ?? [address] ?? [place] [address] ?? [phone] ?? [email or web address] ? CONTINUED ON NEXT PAGE ----- ------- Name: Margarito Paige ?Age/Sex: 38/F ? : 1985 Unit#: [id number] ?? Attend Dr: Antonio Mayer MD ?Re04/22/24 ?Status: DEP SDC ? Location: HO.SSS ?Disch: ? ----- ------- SPEC : [id number] ? RECD: 04/22/24-5929 ? STATUS: ??SOUT ? REQ NUM: [id number] ? ZEYAD: 04/22/24-1131 ? SUBM DR: Moreno Bran ? ENTERED: ??04/22/24-1151 ?SP TYPE: Surgical ? OTHR DR: Antonio Mayer MD ?Della Viera DO ORDERED: ??GO, EM1, Immunofl., Add. immunofl., [id number] Ref Lab T, [id number] Ref Lab T ? ----- ------- Signed (signature on file) Armando Goddard MD 04/24/24 0957 ? ----- ------- ? END OF REPORT ? us Generic External Data Provider LAB BLOOD ORDERAB LES Final Result [facility] [address], [place] [phone] * Other Reference Test - Misc (04/22/2024 11:31 AM EST) 04/22/2024 11:3 1 AM EST 04/22/2024 11:45 AM EST Narrative [facility] - 05/10/2024 8:51 AM EST Kidney bx [id number] sent to [facility] us Generic External Data Provider LAB BLOOD ORDERAB LES Final Result [facility] [address] [facility] [place] [address] [phone] * CT Guided Percutaneous Biopsy Renal Left (04/22/2024 10:41 AM EST) Anatomical Region Laterality Modality Kidney Left Computed Tomogra phy 04/22/2024 10:4 1 AM EST Narrative 04/25/2024 2:54 PM EST ? [facility] ?[address] ?[place] [address] ? CT Scan Report ? Signed ? Patient: Royal,Katjackelynria L ?MR#: [id number] ?? [id number] ? : 1985 ?Acct:[id number] ? Age/Sex: 38 / F ?ADM Date: 04/22/24 ? Loc: HO.SSS ? Attending Dr: Antonio Mayer MD ? Ordering Physician: Antonio Mayer MD ?? Date of Service: 04/22/24 ?? Procedure(s): CT biopsy renal LT ?? Accession Number(s): [id number] ? cc: Antonio Mayer MD; Della Viera DO ? Proteinuria. Hypertension. Right renal artery stenosis. ? PROCEDURES: ?? 1. Limited preprocedure CT of the abdomen. Permanent images saved in ?? PACS. ?? 2. CT-guided nontargeted biopsy of the left kidney. ?? 3. Limited postprocedure CT of the abdomen. Permanent images saved in ?? PACS. ? CLINICIANS: ?? Moreno Bran, PA-C ? MEDICATIONS: ?? -Versed 2 mg, Fentanyl 100 mcg, 20 mg hydralazine, 20 mg labetalol, ?? lidocaine 1% 10 mL SQ ?? -Antibiotics: None ?? -For additional details, please see nursing flowsheet. ? COMPLICATIONS: None ?? ESTIMATED BLOOD LOSS: < 5 ml ?? CONTRAST: None ?? SPECIMENS: 3 x 18 g cores were placed in saline ?? MODERATE SEDATION TIME: 35 min ? PROCEDURE NOTE: ?? The procedure, risks, benefits, and alternatives were carefully ?? explained to the patient and written informed consent was obtained. The ?? patient was placed prone on the CT table. A timeout was performed. A ?? limited CT of the abdomen was performed to localize the left kidney and ?? choose appropriate needle entry and trajectory. The patient was prepped ?? and draped in usual sterile fashion. ? The skin and deeper soft tissues were anesthetized with lidocaine. ?? Under CT guidance, a 17 gauge trocar needle was advanced to the left ?? kidney. An 18 gauge biopsy device was inserted through the trocar ?? needle advanced into the left lower pole of the kidney. Once a safe ?? blood pressure of 130/80 was established, a total of 3, 18 gauge cores ?? were performed. The specimens were placed in saline. A Gelfoam slurry ?? was then administered through the trocar needle and into the left ?? perinephric space. The needle was removed. A dry dressing was applied ?? and secured with Tegaderm. There were no immediate complications. ? The patient was stable after the procedure and was transferred to the ?? post anesthesia care unit. ? The procedure was done under moderate sedation with a dedicated nurse ?? for monitoring of vital signs. ? CT/CT biopsy renal LT ?? Impression: ?? CT-guided nontargeted left renal biopsy ? This procedure was performed by Moreno Bran PA-C and supervised by ?? Juan. ? Electronically signed by: ??Odell Martinez MD ??04/25/2024 02:51 PM EST RP ? Dictated By: ?Moreno Bran ? Signed By: ?<Electronically signed by Moreno Bran in OV> ? 04/25/24 1451 ?<Electronically signed by Odell Martinez MD in OV> ? 04/25/24 1453 ? DD/ 1041 ? TD/TT: 04/22/24 1125 ? Sack Department Supervisor: ? Procedure Note Graciela Krishna - 04/25/[address] [address] [address] Scan Report Signed Patient: Margarito Paige LMR#: [id number] : 1985Acct:[id number] Age/Sex: 38 / FADM Date: 04/22/24 Loc: .SSS Attending Dr: Antonio Mayer MD Ordering Physician: Antonio Mayer MD Date of Service: 04/22/24 Procedure(s): CT biopsy renal LT Accession Number(s): [id number] cc: Antonio Mayer MD; Della Viera DO Proteinuria. Hypertension. Right renal artery stenosis. PROCEDURES: 1. Limited preprocedure CT of the abdomen. Permanent images saved in PACS. 2. CT-guided nontargeted biopsy of the left kidney. 3. Limited postprocedure CT of the abdomen. Permanent images saved in PACS. CLINICIANS: Moreno Bran PA-C MEDICATIONS: -Versed 2 mg, Fentanyl 100 mcg, 20 mg hydralazine, 20 mg labetalol, lidocaine 1% 10 mL SQ -Antibiotics: None -For additional details, please see nursing flowsheet. COMPLICATIONS: None ESTIMATED BLOOD LOSS: < 5 ml CONTRAST: None SPECIMENS: 3 x 18 g cores were placed in saline MODERATE SEDATION TIME: 35 min PROCEDURE NOTE: The procedure, risks, benefits, and alternatives were carefully explained to the patient and written informed consent was obtained. The patient was placed prone on the CT table. A timeout was performed. A limited CT of the abdomen was performed to localize the left kidney and choose appropriate needle entry and trajectory. The patient was prepped and draped in usual sterile fashion. The skin and deeper soft tissues were anesthetized with lidocaine. Under CT guidance, a 17 gauge trocar needle was advanced to the left kidney. An 18 gauge biopsy device was inserted through the trocar needle advanced into the left lower pole of the kidney. Once a safe blood pressure of 130/80 was established, a total of 3, 18 gauge cores were performed. The specimens were placed in saline. A Gelfoam slurry was then administered through the trocar needle and into the left perinephric space. The needle was removed. A dry dressing was applied and secured with Tegaderm. There were no immediate complications. The patient was stable after the procedure and was transferred to the post anesthesia care unit. The procedure was done under moderate sedation with a dedicated nurse for monitoring of vital signs. CT/CT biopsy renal LT Impression: CT-guided nontargeted left renal biopsy This procedure was performed by Moreno Bran PA-C and supervised by Dr. Martinez. Electronically signed by: Odell Martinez MD 04/25/2024 02:51 PM EST RP Dictated By: Moreno Bran Signed By: <Electronically signed by Moreno Bran in OV> 04/25/24 1451 <Electronically signed by Odell Martinez MD in OV> 04/25/24 1453 DD/ 1041 TD/TT: 04/22/24 1125 Sack Department Supervisor: [facility] External Provider IMG CT PROCEDURES Final Result * (ABNORMAL) CBC auto differential (04/22/2024 9:57 AM EST) White Blood Count 10.6 4.8 - 10.8 X10*3/uL [facility] Red Blood Count 4.89 4.20 - 5.50 X10*6/uL [facility] Hemoglobin 13.8 12.0 - 16.0 g/dl [facility] Hematocrit 42.7 37.0 - 47.0 % [facility] Mean Corpuscular Volume 87.3 80.0 - 98.0 fL [facility] Mean Corpuscular Hemoglobin 28.2 27.0 - 33.0 pg [facility] Mean Corpuscular HGB Conc 32.3 31.0 - 35.0 g/dl [facility] Red Cell Distribution Width 13.9 11.0 - 16.0 % [facility] Platelet Count 220 160 - 400 X10*3/uL [facility] Mean Platelet Volume 11.3 9.4 - 12.3 fL [facility] Neutrophils Percent Auto 45.3 45 - 73 % [facility] Imm Gran Pct Auto 0.4 0.0 - 0.4 % [facility] Lymphocytes Percent Auto 39.6 20 - 40 % [facility] Monocytes Percent Auto 7.5 2 - 11 % [facility] Eosinophils Percent Auto 6.5(H) 0 - 4 % [facility] Basophils Percent Auto 0.7 0 - 2 % [facility] NRBC Pct Auto 0.0 0.0 - 0.2 /100WBC [facility] Neutrophils Absolute Auto 4.8 2.0 - 8.3 x10*3/uL [facility] Imm Gran Abs Auto 0.04(H) 0.00 - 0.03 X10*3/uL [facility] Lymphocytes Absolute Auto 4.2 1.2 - 4.9 X10*3/uL [facility] Monocytes Absolute Auto 0.8 0.1 - 1.2 X10*3/uL [facility] Eosinophils Absolute Auto 0.7(H) 0.0 - 0.4 X10*3/uL [facility] Basophils Absolute Auto 0.1 0.0 - 0.2 X10*3/uL [facility] NRBC Abs Auto 0.000 0.0 - 0.012 X10*3/uL [facility] 04/22/2024 9:57 AM EST 04/22/2024 9:59 AM EST us Generic External Data Provider LAB BLOOD ORDERAB LES Final Result Performing Organization Address City/[facility]/ZIP Co de Phone Number [facility] [address] [place] [phone] * Type and screen (04/22/2024 9:57 AM EST) Blood Type ABP [facility] Antibody Screen NEGATIVE [facility] 04/22/2024 9:57 AM EST 04/22/2024 10:08 AM EST Generic External Data Provider LAB BLOOD BANK TE ST ORDERABLES Final Result Performing Organization Address City/[facility]/ZIP Co de Phone Number [facility] [address] [place] [address] [phone] * (ABNORMAL) Lipid Panel, Standard (11/27/2023 12:00 PM EDT) Triglycerides 118 <150 mg/dL [facility] Comment:Desirable Triglyceri de: less than 150 mg/dLBorderline High Triglyceride 150-199 mg/dLHigh Triglyceride: 200-499 mg/dLVery High Triglyceride: greater than or equal to 5OO mg/dL Cholesterol 187 <200 mg/dL [facility] Comment:Desirable Cholestero l: less than 200 mg/dLBorderline High Cholesterol: 200-239 mg/dLHigh Cholesterol: greater than 239 mg/dL LDL Cholesterol Calculated 110(H) <100 mg/dL [facility] Comment:Desirable LDL: less than 100 mg/dLNear Optimal/Above Optimal LDL: 110- 129 mg/dLBorderline High LDL: 130-159 mg/dLHigh LDL: 160-189 mg/dLVery High LDL: greater than or equal to 190 mg/dL HDL Cholesterol 54 >40 mg/dL [facility] Comment:Desirable HDL: great er than 40 mg/dL Note: This HDL assay may give artificially low results in patients with liver disease. Blood Venous blood specimen / Unknown 11/27/2023 12:00 PM EDT 11/27/2023 1:13 PM EDT Della Viera [employer] LAB BLOOD ORDERABLES Final R esult Performing Organization Address [facility] Co de Phone Number [facility] [address] [place] [phone] * Hepatitis C Antibody with Reflex to HCV, RNA, Quantitative, Real-Time PCR (11/07/2023 3:37 PM EDT) Hepatitis C Antibody Nonreactive Nonreactive [facility] Comment:Antibodies to HCV no t detected; does not exclude early acuteHCV infection. Blood Venous blood specimen / Unknown 11/07/2023 3:37 PM EDT 11/07/2023 4:07 PM EDT Della Viera [employer] LAB BLOOD ORDERABLES Final R esult Performing Organization Address [facility]/ZIP Co de Phone Number [facility] [address] [place] [phone] * HIV-1/2 Antigen and Antibodies, Fourth Generation, with Reflexes (11/07/2023 3:37 PM EDT) HIV AB/AG Nonreactive Nonreactive [facility] Comment:HIV-1 p24 Ag and/or HIV-1/HIV-2 Ab not detected.A test result that is nonreactive does not exclude thepossibility of exposure to or infection with HIV-1 and/orHIV-2. Nonreactive results in this assay for individualswith prior exposure to HIV-1 and/or HIV-2 may be due toantigen and antibody levels that are below the limit ofdetection of this assay.The [employer] HIV Ag/Ab Combo assay result andsupplemental assay results should be interpreted inconjunction with the patient's clinical presentation,history and other laboratory results. If the results areinconsistent with clinical evidence, additional testing issuggested to confirm the result. Blood Venous blood specimen / Unknown 11/07/2023 3:37 PM EDT 11/07/2023 4:07 PM EDT us Della Viera DO LAB BLOOD ORDERABLES Final R esult [facility] [address] [place] [phone] * Hemoglobin A1c (11/07/2023 3:37 PM EDT) Hemoglobin A1c 5.6 <6.0 % [facility] Comment:Hemoglobin A1C Refer ence Range Adults: 4.8 - 6.0 % Non diabetic: < 6.0 % Goal: < 7.0 %Additional Action Suggested: > 8.0 %Note: Hemoglobin A1c results are invalid for patients with abnormal amounts of HbF. Blood transfusions may impact the HbA1c concentration in the patient sample. Estimated Average Glucose 114 mg/dL [facility] Comment:eAG = Estimated ave rage glucose which is %A1C expressed asaverage glucose, using the formula of the V6F-DqcnzwbIypftlj Glucose study (ADAG), Diabetes Care, Vol.31,#8,Dec. 2007 Blood Venous blood specimen / Unknown 11/07/2023 3:37 PM EDT 11/07/2023 4:03 PM EDT Della Viera DO LAB BLOOD ORDERABLES Final R esult [facility] [address] [place] [address] [phone] * HPV mRNA E6/E7 (03/13/2019 2:45 PM EST) HPV mRNA E6/E7 Not Detected NOT DETECTED [facility] Comment: This test was performed using the APTIMA(R) HPV Assay ([employer] This assay detects E6/E7 viral messenger RNA (mRNA) from 14 high-risk HPV types (16,18,31,33,35,39,45,51, 52,56,58,59,66,68). For additional information please refer to: http://education.Sensorly/faq/NMS342m0 (This link is being provided for informational/ educational purposes only.) The analytical performance characteristics of this assay have been determined by [employer] [place], [place]. The modifications have not been cleared or approved by the FDA. This assay has been validated pursuant to the CLIA regulations and is used for clinical purposes. [facility] by [facility], [facility], [address] [place] [address] Kaiden Luna M.D., Ph.D., Director of Laboratories , CLIA [id number] Please note: ??Effective 01/18/2016, HPV testing will be performed using [employer]'s APTIMA test which targets mRNA. Detecting mRNA instead of DNA, as in older methods, offers significant improvements in specificity. 03/13/2019 2:45 PM EST Тать[facility] HISTORICAL/NON ORDERABLE LABS Final Result Performing Organization Address City[facility]/ZIP Co de Phone Number [facility] Critical access hospital [address] from Last 3 Months or Most Recently Relevant to Health Maintenance [place] [address] [place] [address] C3 Care Teams Microcomputer Support Specialist Relationship Specialty Start Date End Date Della Viera DO [address] [place] [id number] PCP - General Family Medicine 01/15/15
--- OUTSIDE RECORDS SUMMARY | 2024-06-12 08:53 | XMS_ITS | Encounter Summary ---
Author Organization [employer] Address [address] [facility] [address] [place] [address] Care Team Providers Care Drafter Patent Name Role Phone Della Viera DO Primary Care Provider + [phone] Reason for Visit * Reason Comments Med Refill Encounter Details Date Type Department Care Team (Late st Contact Info) Description 06/08/2024 Refill [facility] [address] [place] [address] Minal Quintanilla MD [address] [place] [address] Social History Tobacco Use Types Packs/Day Years Used Date Smoking Tobacco: Never Passive Smoke Exposure: Never Smokeless Tobacco: Never Alcohol Use Standard Drinks/Week Comments Never 0 [...] Orientation Straight 03/07/2022 10 :20 AM EDT documented as of this encounter Plan of Treatment Not on file documented as of this encounter Visit Diagnoses Not on filedocumented in this encounter Additional Health Concerns Assessment Noted Time PHQ-9 Depression Total Score: 0 02/09/20 24 11:33 AM EDT documented as of this encounter Care Teams Drafter Patent Relationship Specialty Start Date End Date Della Viera DO [address] [place] [id number] PCP - General Family Medicine 01/15/15 documented as of this encounter
--- OUTSIDE RECORDS SUMMARY | 2024-06-12 08:53 | XMS_ITS | Clinical Summary ---
Author Organization [facility] ity Address [id number] [place] [phone] Care Team Providers Care Grab Jack Worker Name Role Phone CabreraDella zimmer Primary Care Provider [phone]- [phone] Social History Tobacco Use Types Packs/Day Years Used Date Smoking Tobacco: Never Assessed Sex and Gender Information Value Date Recorded Sex Assigned at Not on file Gender Identity Not on file Sexual Orientation Not on file Job Start Date Occupation Industry Not on file Not on file Not on file Plan of Treatment Upcoming Encounters Date Type Department Care Team (Late st Contact Info) Description 12/24/2024 9:30 AM EDT Office Visit Bariatric Surgery [facility] [address] [phone] Caleb Mathis MD [address] [phone] Health Maintenance Due Date Last Done Comments DTaP,Tdap,and Td Vaccines (1 - Tdap) 2005 Hepatitis B Vaccines (1 of 3 - 19+ 3-dose series) 2005 Cervical Cancer Screening: P ap Smear 07/19/2007 Cholesterol Screening (Lipid Panel) 04/20/2022 Depression Screening 04/20/2022 HIV Screening 04/20/2022 Hepatitis C Screening 04/20/2022 Social Influencers of Health Screening 04/20/2022 Hypertension/CHF/CAD Annual BMP Blood Test 04/23/2022 COVID-19 Vaccine ( - 2023-2 5 season) 2024 Influenza Vaccine (#1) 2024 HIB Vaccines Aged Out No longer eligi [...] on patient's age to complete this topic MMR Vaccines Aged Out No longer eligi ble based on patient's age to complete this topic Meningococcal ACWY Vaccine Aged Out N o longer eligible based on patient's age to complete this topic Pneumococcal Vaccine: Pediat rics (0 to 5 Years) and At-Risk Patients (6 to 64 Years) Aged Out No longer eligible b ased on patient's age to complete this topic RSV Immunization Patients Un dawson 20 months Aged Out No longer eligible b ased on patient's age to complete this topic Varicella Vaccines Aged Out No longer eligible based on patient's age to complete this topic Care Teams Grab Jack Worker Relationship Specialty Start Date End Date Della Viera DO [address] [place] [address] PCP - General Family Medicine 05/09/24
--- OUTSIDE RECORDS SUMMARY | 2024-06-12 08:53 | XMS_ITS | Encounter Summary ---
Author Organization [employer] Address [address] [facility] [address] 7[address] [place] [address] Care Team Providers Care Technician Semiconductor Development Name Role Phone Della Viera DO Primary Care Provider + [phone] Reason for Visit * Reason Comments Med Refill Encounter Details Date Type Department Care Team ([facility] st Contact Info) Description 06/04/2024 Refill [facility] [address] [place] [address] Minal Quintanilla MD [address] [place] [address] Social History Tobacco Use Types Packs/Day Years [...] documented as of this encounter Care Teams Technician Semiconductor Development Relationship Specialty Start Date End Date Della Viera DO [address] [place] [phone] PCP - General Family Medicine 01/15/15 documented as of this encounter
--- OUTSIDE RECORDS SUMMARY | 2024-06-12 08:53 | XMS_ITS | Encounter Summary ---
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 female. Chief Complaint CHRPE OS HPI Here for a complete eye exam to monitor a CHRPE in the left eye. Today the patient reports she seeswell at distance and near with her current glasses. She does complain of red, itchy, irritated eyesfor the past year, mostly in the morning when she wakes up Symptoms occur once every two weeks. Shenotes associated dryness. She uses Visine occasionally for relief. Her last eye exam was here on 01/26/2022. Last edited by Massiel Campbell, OD on 06/10/2024 2:27 PM. Current Outpatient Medications Medication Sig Dispense Refill acetaminophen (Tylenol 8 Hour) 650 MG ER tablet Take 650 mg by mouth every 6 (six) hours if needed for mild pain. albuterol 108 (90 Base) MCG/ACT inhaler Inhale 2 puffs every 4 (four) hours if needed for wheezing.18 g 0 amitriptyline (Elavil) 10 MG tablet Take 1-2 tablets (10-20 mg) by mouth at bedtime. 60 tablet 3 amLODIPine (Norvasc) 10 MG tablet Take 1 tablet (10 mg) by mouth Once per day. 90 tablet 3 azelastine (Astelin) 0.1 % nasal spray Administer 1 spray into each nostril 2 times daily. Use in each nostril as directed 30 mL 11 Blood Pressure kit 1 each Once per day. 1 kit 0 Dextromethorphan-guaiFENesin (Mucinex DM) 30-600 MG tablet sustained-release 12 hour Use 1 tab TID 28 tablet 0 Diclofenac Sodium 1 % gel Apply 2 g topically if needed in the morning, at noon, in the evening, and at bedtime (pain). 150 g 3 dulaglutide (Trulicity) 1.5 MG/0.5ML solution pen-injector Inject 1.5 mg under the skin 1 (one) time per week. 4 each 11 fexofenadine (Li) 180 MG tablet Take 1 tablet (180 mg) by mouth Once per day. 90 tablet 3 hydroCHLOROthiazide (HYDRODiuril) 25 MG tablet TAKE 1 TABLET(25 MG) BY MOUTH IN THE MORNING 90 tablet 3 lidocaine (Lidoderm) 5 % patch Apply 1-2 patches topically Once per day. Remove & discard patchwithin 12 hours or as directed by MD. 60 patch 3 losartan (Cozaar) 100 MG tablet Take 1 tablet (100 mg) by mouth in the morning. 90 tablet 3 metoprolol succinate XL (Toprol XL) 50 MG 24 hr tablet Take 1 tablet (50 mg) by mouth Once per day.Do not crush or chew. 90 tablet 3 predniSONE (Deltasone) 20 MG tablet TAKE 2 TABLETS(40 MG) BY MOUTH DAILY FOR 5 DAYS 10 tablet 0 triamcinolone (Nasacort) 55 MCG/ACT nasal inhaler Administer 2 sprays into each nostril Once per day. 16.5 g 11 No current facility-administered medications for this visit. Past Medical History: Diagnosis Date Diabetes mellitus (CMS/HCC) HLD (hyperlipidemia) Hypertension Past Surgical History: Procedure Laterality Date CT GUIDED PERCUTANEOUS BIOPSY RENAL LEFT Left 04/25/2024 CT GUIDED PERCUTANEOUS BIOPSY RENAL LEFT No family history on file. Social History Socioeconomic History Marital status: Spouse name: Not on file Number of children: Not on file Years of education: Not on file Highest education level: Not on file Occupational History Not on file Tobacco Use Smoking status: Never Passive exposure: Never Smokeless tobacco: Never Vaping Use Vaping status: Never Used Substance and Sexual Activity Alcohol use: Never Drug use: Yes Types: Marijuana Sexual activity: Not on file Other Topics Concern Not on file Social History Narrative Not on file Social Drivers of Health Food Insecurity: Low Risk (02/09/2024) Food Insecurity Within the past 12 months, you worried that your food would run out before you got money to buy more:: Never True Within the past 12 months,the food you bought just didn't last and you didn't have enough money to get more: : Never True Transportation Needs: Low Risk (02/09/2024) Transportation In the past 12 months, has lack of transportation kept you from medical appts, meetings, work or from getting things needed for daily living? : No Intimate Partner Violence: Not on file Housing Stability: Low Risk (02/09/2024) Housing Stability What is your housing situation today?: I have housing Think about the place you live. Do you have problems with any of the following? : None of the above Allergies Allergen Reactions Naproxen Other reaction(s): Stomach cramps Other Reaction(s): STOMACH PAIN, DIARRHEA, VOMITING ROS Positive for: Eyes Negative for: Constitutional, Gastrointestinal, Neurological, Skin, Genitourinary, Musculoskeletal,HENT, Endocrine, Cardiovascular, Respiratory, Psychiatric, Allergic/Imm, Heme/Lymph Last edited by Jairon Roach on 05/21/2024 2:52 PM. Base Eye Exam Visual Acuity (Snellen - Linear) Right Left Dist cc 20/20 -2 20/20 -1 Correction: Glasses Tonometry ([facility] , 2:59 PM) Right Left Pressure 20 20 Pupils Pupils APD Right PERRL None Left PERRL None Visual Moy (Counting fingers) Left Right Full Full Extraocular Movement Right Left Full Full Neuro/Psych Oriented x3: Yes Mood/Affect: Normal Dilation Both eyes: 1% Tropicamide @ 3:16 PM Slit Lamp and Fundus Exam External Exam Right Left External Normal Normal Slit Lamp Exam Right Left Lids/Lashes Normal Normal Conjunctiva/Sclera 1+ diffuse bulbar hyperemia, trace papillae 1+ diffuse bulbar hyperemia, trace papillae Cornea TBUT instant TBUT instant Anterior Chamber Deep and quiet Deep and quiet Iris Flat, no NVI Flat, no NVI Lens Clear Clear Fundus Exam Right Left Vitreous Clear Clear Disc Ririe and Distinct, no NVD Ririe and Distinct, no NVD C/D Ratio Vertical .10 .30 C/D Ratio Horizontal .10 .30 Macula Flat and Intact, no CSME Flat and Intact, no CSME Vessels Normal Normal Periphery No holes/breaks/tears 360 degrees, no NVE 2 pinpoint CHRPEs at 3:00 in the periphery, 1 pinpoint CHRPE at 5:00 in the periphery, No holes/breaks/tears 360 degrees, no NVE Refraction Wearing Rx Sphere Cylinder Dietrich Right -0.25 -1.00 099 Left -0.50 -1.00 099 Manifest Refraction (Subjective) Sphere Cylinder Dietrich Dist VA Right -0.25 -1.25 095 20/20-1 -2 Left -0.50 -1.25 095 20/20 Near VA Both: 20/20 Final Rx Sphere Cylinder Dietrich Dist VA Right -0.25 -1.25 095 20/20 Left -0.50 -1.25 095 20/20 Expiration Date: 05/21/2025 Assessment/plan: Diagnoses and all orders for this visit: Congenital hypertrophy of retinal pigment epithelium Stable to previous exam findings. A CHRPE is a benign finding characterized by a round, flat, dark keane or dark brown melly on the retinal surface. CHRPE's typically show little change in size or appearance over time. No treatment is necessary. Will monitor with a complete eye exam in 2 years. 2. Dry eyes Patient educated on dry eye syndrome. Dry eye syndrome is caused by a chronic lack of sufficient lubrication and moisture on the surface of the eye. Consequences of dry eyes range from subtle but constant eye irritation to significant inflammation and even scarring of the front surface of the eye. S ymptoms of dry eye syndrome include: a burning sensation, itching, an aching sensation, heavy feeling eyes, fatigued eyes, sore eyes, dryness sensation, redness, photophobia, and blurred vision. She was given a handout of OTC artificial tears to purchase and use 4 times per day in both eyes. She was also given a handout with instructions to purchase and use Lumify 1-2 times a day in both eyes forany residual redness. Will monitor at her next exam. 3. Regular astigmatism of both eyes Glasses prescription updated and given. Will monitor at the patient's next full eye exam. Massiel Campbell, OD 06/10/2024, 2:28 PM Student Name: Jairon Roach I attest that I was physically present with the optometry student. I personally saw and evaluated the patient and performed my own history and examination. I have reviewed, verified, and revised the documented findings as necessary and agree with the content and plan as written. Area Plant Manager Source: _X__ None ___ Bilingual Staff ___ Qualified Staff Neuroradiologist ___ Telephone Area Plant Manager; ID# ___ Area Plant Manager brought by patient (family member, friend, POTATO SORTER, etc) ___ In person social studies teacher ___ Ipad Area Plant Manager; ID#: Language Spoken During Exam: __English documented in this encounter Plan of Treatment Not on file documented as of this encounter Visit Diagnoses Diagnosis Congenital hypertrophy of retinal pigment epithelium- Primary Dystrophies primarily involving the retinal pigment epithelium Dry eyes Unspecified tear film insufficiency Regular astigmatism of both eyes documented in this encounter Additional Health Concerns Assessment Noted Time PHQ-9 Depression Total Score: 0 02/09/20 24 11:33 AM EDT documented as of this encounter Care Teams Workforce Staffing Advisor Relationship Specialty Start Date End Date Della Viera DO [address] [place] [id number] PCP - General Family Medicine 01/15/15 documented as of this encounter
--- OUTSIDE RECORDS SUMMARY | 2024-06-12 08:53 | XMS_ITS | Encounter Summary ---
Author Organization [employer] Address [address] [facility] 7t [place] [address] Care Team Providers Care Equal Opportunity Assistant Name Role Phone Della Viera DO Primary Care Provider [phone] Reason for Visit * Reason Onset Date Comments Appointment Request 08/12/2022 Encounter Details Date Type Department Care Team (Late st Contact Info) Description 08/12/2022 Telephone [facility] [address] [place] [address] Della Viera DO [address] [place], [place] [phone] Appointment Request Social History Tobacco Use Types Packs/Day Years Used Date Smoking Tobacco: Never Assessed Comments Unknown Sex and Gender Information Value Date Recorded Sex Assigned at Female 03/07/2022 10:20 AM EDT Legal Sex Female 10:20 AM EDT Gender Identity Female 03/07/2022 10:20 AM EDT Sexual Orientation Straight 03/07/2022 10 :20 AM EDT documented as of this encounter Miscellaneous Notes * Telephone Encounter - Cassie Webster - 08/12/2022 10:01 AM EDT Tc from pt requesting an appt with provider for a follow up. Please contact pt at [phone] documented in this encounter Plan of Treatment Not on file documented as of this encounter Visit Diagnoses Not on filedocumented in this encounter Care Teams Equal Opportunity Assistant Relationship Specialty Start Date End Date Della Viera DO [address] [place] [phone] PCP - General Family Medicine 01/15/15 documented as of this encounter
--- OUTSIDE RECORDS SUMMARY | 2024-06-12 08:53 | XMS_ITS | Encounter Summary ---
Author Organization [facility] Address [address] [place] [address] Phone Care Team Providers Care Fly Winder Name Role Phone Della Viera DO Primary Care Provider Unava ilable Encounter Details Date Type Department Care Team (Late st Contact Info) Description 08/19/2021 Documentation Only [facility], [address] [place] [phone] Della Viera DO [address] [place] [address] Social History Tobacco Use Types Packs/Day Years Used Date Smoking Tobacco: Never Assessed Comments Unknown Sex and Gender Information Value Date Recorded Sex Assigned at Not on file Legal Sex Female 1:54 PM EDT Gender Identity Not on file Sexual Orientation Not on file documented as of this encounter Plan of Treatment Not on file documented as of this encounter Visit Diagnoses Not on filedocumented in this encounter Care Teams Fly Winder Relationship Specialty Start Date End Date Della Viera DO PCP - General Family Medicine 08/19/21 documented as of this encounter
--- OUTSIDE RECORDS SUMMARY | 2024-06-12 08:53 | XMS_ITS | Encounter Summary ---
Author Organization [employer] Address [address] [facility] [address] [place] [address] Care Team Providers Care Chip Mixer Name Role Phone TraciDella judd Primary Care Provider + [phone] Encounter Details Date Type Department Care Team (Latest Contact Info) Description 05/21/2024 Travel Social History Tobacco Use Types Packs/Day Years [...] documented as of this encounter Care Teams Chip Mixer Relationship Specialty Start Date End Date Della Viera DO [address] [place] [phone] PCP - General Family Medicine 01/15/15 documented as of this encounter
--- OUTSIDE RECORDS SUMMARY | 2024-06-12 08:53 | XMS_ITS | Clinical Summary ---
Author Organization [facility], Address [address] [place] [address] [place] [address] Phone Care Team Providers Care Screen And Cyclone Repairer Name Role Phone Della Viera DO Primary Care Provider Unava ilable Allergies Active Allergy Reactions Criticality Noted Date Comments Naproxen 09/23/2021 Medications oxybutynin XL (DITROPAN-XL) 5 MG 24 hr tablet Take 5 mg by mouth 1 (one) time each day 08/16/2021 Active labetalol (NORMODYNE) 100 MG tablet Take 100 mg by mouth in the morning and 100 mg in the evening. Active methocarbamol (ROBAXIN) 750 MG tablet Take 750 mg by mouth in the morning and 750 mg at noon and 750 mg in the evening and 750 mg before bedtime. 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 Vitamin D deficiency 09/23/2021 Hypertension 09/23/2021 Social History Tobacco Use Types Packs/Day Years Used Date Smoking Tobacco: Former Alcohol Use Standard Drinks/Week Comments Never 0 (1 standard drink = 0.6 oz pur e alcohol) Comments Unknown Sex and Gender Information Value Date Recorded Sex Assigned at Not on file Legal Sex Female 1:54 PM EDT Gender Identity Not on file Sexual Orientation Not on file Plan of Treatment Health Maintenance Due Date Last Done Comments Hepatitis B Vaccine (1 of 3 - 19+ 3-dose series) 2005 Influenza Vaccine (#1) 2024 Pneumococcal Vaccine: Pediat rics (0 to 5 Years) and At-Risk Patients (6 to 64 Years) Aged Out No longer eligi ble based on patient's age to complete this topic Insurance [place]ICAID [place] Care Teams Screen And Cyclone Repairer Relationship Specialty Start Date End Date Della Viera DO PCP - General Family Medicine 08/19/21
--- OUTSIDE RECORDS SUMMARY | 2024-06-12 08:53 | XMS_ITS | Encounter Summary ---
Author Organization [employer] Address [address] [facility] [address] [place] [address] Care Team Providers Care Solderer Furnace Name Role Phone Della Viera DO Primary Care Provider + [phone] Reason for Visit * Reason Comments Med Refill Encounter Details Date Type Department Care Team (Late st Contact Info) Description 06/08/2024 Refill [facility] [address] [place], [place] [phone] Della Viera DO [address] [place], [place] [phone] Social History Tobacco Use Types Packs/Day Years [...] documented as of this encounter Care Teams Solderer Furnace Relationship Specialty Start Date End Date Della Viera DO [address] [place] [phone] PCP - General Family Medicine 01/15/15 documented as of this encounter
== END 2024-06-11 08:49 | disposition home or self-care (01) ==
LOC: HO.HOSX 08:48
PROVIDERS: Visit Provider Orthopaedic Surgery
DX: Z13.89 Encounter for screening for other disorder (principal)

== ENCOUNTER 2024-07-26 12:48 | Outpatient (REF) | payer MEDICAID, SELFPAY ==
[2024-07-26 16:35] LABS: Hematocrit 41.9 % (37.0-47.0); Hemoglobin 13.5 g/dl (12.0-16.0); Mean Corpuscular HGB Conc 32.2 g/dl (31.0-35.0); Mean Corpuscular Hemoglobin 27.8 pg (27.0-33.0); Mean Corpuscular Volume 86.2 fL (80.0-98.0); Mean Platelet Volume 11.8 fL (9.4-12.3); Platelet Count 222 X10*3/uL (160-400); Red Blood Count 4.86 X10*6/uL (4.20-5.50); Red Cell Distribution Width 14.6 % (11.0-16.0); White Blood Count 11.8 X10*3/uL (4.8-10.8)
[2024-07-26 16:44] LABS: Estimated Average Glucose 123 mg/dL; Hemoglobin A1c % 5.9 % (<6.0)
[2024-07-26 17:41] LABS: Alanine Aminotransferase 19 U/L (0-31); Albumin Level 4.1 g/dL (3.5-5.0); Alkaline Phosphatase 70 U/L (39-117); Anion Gap 11 (12-20); Aspartate Amino Transferase 16 U/L (5-31); Bilirubin Direct 0.1 mg/dL (0.0-0.5); Bilirubin Total 0.3 mg/dL (0.0-1.0); Blood Urea Nitrogen 11 mg/dL (9-16); Calcium 9.6 mg/dL (8.4-10.2); Carbon Dioxide 26 mmol/L (22-29); Chloride 104 mmol/L (96-108); Cholesterol 174 mg/dL (<200); Estimated Glomerular Filt Rate > 60; Glucose Random 90 mg/dL (60-115); HDL Cholesterol 54 mg/dL (>40); LDL Cholesterol Calculated 104 mg/dL (<100); Potassium 4.1 mmol/L (3.3-5.1); Sodium 137 mmol/L (135-145); Total Protein 8.2 g/dL (6.5-8.0); Triglycerides 84 mg/dL (<150)
[2024-07-26 18:04] LABS: Thyroid Stimulating Hormone 1.18 uIU/mL (0.32-4.0); Vitamin D 25-OH Total 15.4 ng/mL (>30)
[2024-07-29 04:27] LABS: HIV AB/AG Nonreactive (Nonreactive); HIV Num 1 0.08 S/CO (0.00-0.99); ~HepC Num1 0.08 S/CO (0.00-0.79); ~Hepatitis C Antibody Nonreactive (Nonreactive)
[2024-07-29 16:58] LABS: RPR Rapid Plasma Reagin NON-REACTIVE (NON-REACTIVE)
== END 2024-07-26 12:49 | disposition home or self-care (01) ==
LOC: HO.HHCL 12:48
PROVIDERS: Visit Provider Family Medicine
DX: Z00.00 Encounter for general adult medical examination without abnormal findings (principal); Z68.41 Body mass index [BMI] 40.0-44.9, adult; G47.30 Sleep apnea, unspecified; R06.2 Wheezing; R19.8 Other specified symptoms and signs involving the digestive system and abdomen; Z87.19 Personal history of other diseases of the digestive system; M25.561 Pain in right knee; G89.29 Other chronic pain; M54.2 Cervicalgia; G56.01 Carpal tunnel syndrome, right upper limb; G56.21 Lesion of ulnar nerve, right upper limb; R76.8 Other specified abnormal immunological findings in serum; D72.829 Elevated white blood cell count, unspecified; J30.9 Allergic rhinitis, unspecified; I70.1 Atherosclerosis of renal artery; R73.03 Prediabetes; I10 Essential (primary) hypertension
CPT/HCPCS: 36415; 80048; 80061; 80076; 82306; 83036; 84439; 84443; 85027; 86592; 86803; 87389

== ENCOUNTER 2024-08-08 15:36 | Outpatient (AMB) | payer MEDICAID, SELFPAY ==
--- NOTE | 2024-08-08 15:42 | HO.NEPHOV ---
Vital Signs 08/08/24 15:43 Height 5 ft 2 in Weight 217 lb BMI 39.7 BP 126/70 Blood Pressure Location Lt brachial Position Sitting Pulse 90 Pulse Source Pulse Oximeter Pulse Oximetry (%) 97 Oxygen Delivery Method Room Air Intake Visit Reasons: 3mon follow up w/labs-LVM Goggles Assembler Required: No Accompanied by: Self / Same As Patient Allergies Seasonal Allergies Allergy (Intermediate, Verified 08/08/24 15:43) Nasal congestion naproxen [NAPROXEN] Allergy (Unknown, Verified 08/08/24 15:43) STOMACH PAIN, DIARRHEA, VOMITING HPI Comments Details: Ms. Ferrell was seen for follow up of proteinuria and hypertension. She has been hypertensive since 9 years after her second child ( has 3 children). She is 38 years of age with prediabetes, high BMI and hypertension. She has been on Trulicity with some weight loss. She denies any retinopathy or hematuria. She is on ARB/HCTZ/calcium channel jaye. ( labetalol discontinued). She has no history of nephrolithiasis. She denies any new bone pain or back pain. She has no history of hypercalcemia. She is on multiple antihypertensive medications. She does not have any coronary artery disease, carotid disease, CVA, CHF, NANCY or PAD. She denies epistaxis, recurrent sinusitis, sore throat, photosensitivity, new skin rashes. She has no family history of any he has had a renal transplantation. One of her aunts has lupus. She has no history of any sensorineural deafness or microscopic hematuria. She has no history of sweating issues. She claims to be compliant with her medications. [facility] Medical History (Updated 04/22/24 @ 09:49 by Juliana Luther RN) Marijuana use Asthma Obesity Palpitations Kienb?ck's disease Migraines Headache Hypertension Surgical History Hx of section History of tubal ligation Family History Family/Other No problems noted. 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 Review of Systems Const All systems reviewed & are unremarkable except as noted in HPI and below Physical Exam Vital Signs: Last Vital Signs Pulse 90 08/08/24 15:43 BP 126/70 08/08/24 15:43 Pulse Ox 97 08/08/24 15:43 Oxygen Delivery Method Room Air 08/08/24 15:43 BMI result Body Mass Index 39.7 Const General: comfortable and no acute distress Orientation/consciousness: patient oriented x3 HEENT Head: Yes normocephalic Mouth: Normal oral and palatal mucosa present Eyes EOM: EOMs intact bilaterally Neck Neck: Yes supple Resp Auscultation: clear to auscultation bilaterally Cardio Jugular venous distension: no JVD Rate: regular rate GI Palpation (GI): Soft to palpation Auscultation: normal bowel sounds Skin General skin exam: no rashes or lesions noted Neuro General: patient oriented x3 and moves all extremities Extrem General: Yes no pedal edema Results Reviewed Nephrology Results: Hgb 13.5 g/dl (12.0-16.0) 07/26/24 WBC 11.8 X10*3/uL (4.8-10.8) H 07/26/24 Plt Count 222 X10*3/uL (160-400) 07/26/24 Sodium 137 mmol/L (135-145) 07/26/24 Potassium 4.1 mmol/L (3.3-5.1) 07/26/24 Chloride 104 mmol/L (96-108) 07/26/24 Carbon Dioxide 26 mmol/L (22-29) 07/26/24 BUN 11 mg/dL (9-16) 07/26/24 Creatinine 0.72 mg/dL (0.5-1.4) 07/26/24 Calcium 9.6 mg/dL (8.4-10.2) 07/26/24 Assessment & Plan Assessment & Plan (1) Proteinuria: Code(s): R80.9 - Proteinuria, unspecified Category: Medical Qualifiers: Proteinuria type: other Qualified Code(s): R80.8 - Other proteinuria (2) Hypertension: Code(s): I10 - Essential (primary) hypertension Category: Medical Qualifiers: Hypertension type: primary hypertension Qualified Code(s): I10 - Essential (primary) hypertension Plan Ms. Ferrell has proteinuria and hypertension. She has right NANCY. Her high BMI is putting her at risk for secondary FSGS. Her biopsy was reviewed. She may be a candidate for Jardiance. Her last 24 hour urine for protein is 918 mg. She does not need angioplasty and stenting of right NANCY now. Lipid profile OK. Answered all questions. Follow-up appointment given Orders: Orders Creatinine 6 Months I10 - Essential (primary) hypertension, R80.8 - Other proteinuria Blood Urea Nitrogen 6 Months I10 - Essential (primary) hypertension, R80.8 - Other proteinuria Electrolytes 6 Months I10 - Essential (primary) hypertension, R80.8 - Other proteinuria Calcium 6 Months I10 - Essential (primary) hypertension, R80.8 - Other proteinuria Protein Creatinine Ratio, Ur 6 Months I10 - Essential (primary) hypertension, R80.8 - Other proteinuria Coding Level of Care Code Est Pt Level 4 (60575) Diagnoses Other proteinuria R80.8 Proteinuria type: other Primary hypertension I10 Hypertension type: primary hypertension
[2024-08-08 15:43] VITALS: BP 126/70; PULSE 90; O2SAT 97; BMI 39.7
--- OUTSIDE RECORDS SUMMARY | 2024-08-08 16:55 | XMS_ITS | Encounter Summary ---
Author Organization [facility] Address [address] [place] [address] Phone Care Team Providers Care Release Engineer Name Role Phone Della Viera DO Primary Care Provider Unava ilable Encounter Details Date Type Department Care Team (Late st Contact Info) Description 08/19/2021 Documentation Only [facility], [address] [place] [phone] Della Viera DO [address] [place] [address] Social History Tobacco Use Types Packs/Day Years [...] on filedocumented in this encounter Care Teams Release Engineer Relationship Specialty Start Date End Date Della Viera DO PCP - General Family Medicine 08/19/21 documented as of this encounter
--- OUTSIDE RECORDS SUMMARY | 2024-08-08 16:55 | XMS_ITS | Clinical Summary ---
Author Organization [facility], Address [address] [place] [address] [place] [address] Phone Care Team Providers Care Material Mixer Name Role Phone Della Viera DO Primary [...] - 19+ 3-dose series) 2005 Influenza Vaccine (Season Ended) 2025 Pneumococcal Vaccine: Pediat rics (0 to 5 Years) and At-Risk Patients (6 to 64 Years) Aged Out No longer eligi ble based on patient's age to complete this topic Insurance [place] Care Teams Material Mixer Relationship Specialty Start Date End Date Della Viera DO PCP - General Family Medicine 08/19/21
--- OUTSIDE RECORDS SUMMARY | 2024-08-08 16:55 | XMS_ITS | Clinical Summary ---
Author Organization [facility] Address [address] [place] [phone] Care Team Providers Care Commodities Clerk Name Role Phone Della Viera DO Primary Care Provider [phone] Allergies No known active allergies Active Problems Problem Noted Date Diagnosed Date Essential hypertension, benign 05/25/2012 Overview (06/28/2024): ? induced 02/14 echo revealed low normal LVSF EF 50-55%, no obvious valvular abnormalities Heart palpitations 05/25/2012 Overview (06/28/2024): 04/16 Holter monitor revealed baseline NSR with no pauses, no tachy or bradyarrhythmia, no pt reported events Social History Tobacco Use Types Packs/Day Years Used Date Smoking Tobacco: Never Assessed Comments Unknown Sex and Gender Information Value Date Recorded Sex Assigned at Not on file Legal Sex Female 6:17 PM EST Gender Identity Not on file Sexual Orientation Not on file Plan of Treatment Upcoming Encounters Date Type Department Care Team (Late st Contact Info) Description 12/24/2024 9:30 AM EDT Office Visit Bariatric Surgery - [place] [address] [phone] Caleb Mathis MD [address] [facility] [address] [place] [address] Health Maintenance Due Date Last Done Comments [...] patient's age to complete this topic Meningococcal B Vacine Aged Out No lo nger eligible based on patient's age to complete [...] age to complete this topic Insurance [place]ICAID - [place] Care Teams Commodities Clerk Relationship Specialty Start Date End Date Della Viera DO [address] [place] [address] PCP - General Family Medicine 05/09/24
== END 2024-08-08 16:15 | disposition home or self-care (01) ==
LOC: HO.HKAS 15:36
PROVIDERS: PCP Family Medicine; Visit Provider Internal Medicine Nephrology
DX: R80.8 Other proteinuria (principal); I10 Essential (primary) hypertension
CPT/HCPCS: 99214

== ENCOUNTER → 2024-08-08 15:36 | Outpatient (BNVA) | payer MEDICAID, SELFPAY | PROVIDERS: PCP Family Medicine; Visit Provider Internal Medicine Nephrology | DX: I10 Essential (primary) hypertension (principal); R80.8 Other proteinuria; Z79.899 Other long term (current) drug therapy | CPT/HCPCS: 99212 ==

== ENCOUNTER 2024-09-23 13:40 | Outpatient (AMB) | payer MEDICAID, SELFPAY ==
--- OUTSIDE RECORDS SUMMARY | 2024-09-23 13:43 | XMS_ITS | Clinical Summary ---
Author Organization [employer] Address [address] [facility] [address] [place] [address] Care Team Providers Care Lead Infrastructure Architect Name Role Phone CabreraDella zimmer Primary Care Provider [phone] Allergies Active Allergy Reactions Criticality Noted Date Comments Naproxen 01/03/2019 Other reaction(s): Stomach cramps Other Reaction(s): STOMACH PAIN, DIARRHEA, VOMITING Medications hydroCHLOROthia zide (HYDRODiuril) 25 MG tablet TAKE 1 TABLET(25 MG) BY MOUTH IN THE MORNING 90 tablet 3 4 Active Blood Pressure kit 1 each Once per day. 1 kit 4 Active acetaminophen (Tylenol 8 Hour) 650 MG ER tablet Take 650 mg by mouth every 6 (six) hours if needed for mild pain. 4 Active dulaglutide (Trulicity) 1.5 MG/0.5ML solution pen-injector Inject 1.5 mg under the skin 1 (one) time per week. 4 each 11 4 Active Diclofenac Sodium 1 % gel Apply 2 g topically if needed in the morning, at noon, in the evening, and at bedtime (pain). 150 g 3 4 Active lidocaine (Lidoderm) 5 % patch Apply 1-2 patches topically Once per day. Remove & discard patch within 12 hours or as directed by MD. 60 patch 3 4 Active amLODIPine (Norvasc) 10 MG tablet Take 1 tablet (10 mg) by mouth Once per day. 90 tablet 3 4 11/20/19 25 Active metoprolol succinate XL (Toprol XL) 50 MG 24 hr tablet Take 1 tablet (50 mg) by mouth Once per day. Do not crush or chew. 90 tablet 3 4 02/09/20 25 Active fexofenadine (Li) 180 MG tablet Take 1 tablet (180 mg) by mouth Once per day. 90 tablet 3 4 02/09/20 25 Active triamcinolone (Nasacort) 55 MCG/ACT nasal inhaler Administer 2 sprays into each nostril Once per day. 16.5 g 11 4 02/09/20 25 Active azelastine (Astelin) 0.1 % nasal spray Administer 1 spray into each nostril 2 times daily. Use in each nostril as directed 30 mL 11 4 02/09/20 25 Active predniSONE (Deltasone) 20 MG tablet TAKE 2 TABLETS(40 MG) BY MOUTH DAILY FOR 5 DAYS 10 tablet 5 Active losartan (Cozaar) 100 MG tablet TAKE 1 TABLET(100 MG) BY MOUTH IN THE MORNING 90 tablet 3 5 Active polycarbophil (Fibercon) 625 MG tablet Take 1 tablet (625 mg) by mouth 2 times daily. 180 tablet 3 5 07/27/19 26 Active docusate sodium (Colace) 100 MG capsule Take 1 capsule (100 mg) by mouth 2 times daily. 180 capsule 3 5 07/27/19 26 Active Saccharomyces boulardii (probiotic) 250 MG capsule Take 1 capsule (250 mg) by mouth Once per day. 30 capsule 3 5 Active simethicone (Mylicon,Gas-X) 125 MG capsule Take 1 capsule (125 mg) by mouth every 6 (six) hours if needed for flatulence. 28 capsule 5 Active Tirzepatide-Gordo ght Management (Zepbound) 2.5 MG/0.5ML solution auto-injector Inject 0.5 mL (2.5 mg) under the skin 1 (one) time per week. 2 mL 3 5 Active dicyclomine (Bentyl) 10 MG capsule Take 1 capsule (10 mg) by mouth if needed in the morning, at noon, and at bedtime (abd pain). 30 capsule 3 5 07/27/19 26 Active cholecalciferol (Vitamin D-3) 50 MCG (2000 UT) capsule Take 1 capsule (50 mcg) by mouth Once per day. 90 capsule 3 5 08/02/19 26 Active albuterol (Ventolin HFA) 108 (90 Base) MCG/ACT inhaler INHALE 2 PUFFS EVERY 4 HOURS NEEDED FOR WHEEZING 18 g 5 Active Active Problems Problem Noted Date Diagnosed [...] Encounters Date Type Department Care Team Description 08/09/2024 Refill [facility] [address] [place] [phone] Della Viera DO 08/02/2024 Telephone [facility] [address] [place] [phone] Della Viera DO Prior Authorization ( PA Request: Zep[employer]) 08/01/2024 Refill [facility] [address] [place] [address] Della Viera DO 07/26/2024 11:45 AM EDT Office Visit [facility] [address] [place] [phone] Della Viera DO Essential hypertension (Primary Dx); Prediabetes; Right renal artery stenosis ([facility]); Allergic rhinitis, unspecified seasonality, unspecified trigger; Leukocytosis, unspecified type; Cubital tunnel syndrome on right; Carpal tunnel syndrome of right wrist; Chronic neck pain; Chronic pain of right knee; History of colitis; Alternating constipation and diarrhea; Wheezing; Sleep-disordered breathing; Healthcare maintenance; BMI 40.0-44.9, adult (CMS/HCC) 07/26/2024 Travel 07/24/2024 Telephone [facility] [address] [place] [address] Della Viera DO Referral 07/19/2024 Population Health Risk Score [facility] () Department [address] [place] [phone] Provider, Population Health Generic 07/04/2024 Refill [facility] [address] [place] [address] Della Viera DO Chronic pain of right knee 06/27/2024 1:30 PM EST Office Visit [facility] [address] [place] [address] Adrian, Massiel, OD Regular astigmatism of both eyes (Primary Dx) from Last 3 Months Immunizations Immunization Administration Dates Next Due Influenza injectable quadriv [...] Sign Reading Time Taken Comments Blood Pressure 150/100 07/26/2024 1:11 PM EDT Pulse 94 07/26/2024 11:50 AM EDT Temperature 36.6 ??C (97.8 ??F) 07/26/2024 11:50 AM E DT Respiratory Rate 18 07/26/2024 11:50 AM EDT Oxygen Saturation 97% 10/14/2022 11:37 AM EDT Inhaled Oxygen Concentration - - Weight 100 kg (221 lb 3.2 oz) 07/26/2024 11:50 A M EDT Height 157.5 cm (5' 2 ) 07/26/2024 11:50 AM EDT Body Mass Index 40.46 07/26/2024 11:50 AM EDT Plan of Treatment Health Maintenance Due Date Last Done Comments Alcohol/Substance Use Screening 1998 Family Planning (PISQ) 2001 Hepatitis B Vaccines (1 of 3 - 19+ 3-dose series) 2005 Pap Smear 07/19/2007 COVID-19 Vaccine ( season) 2024 Influenza Vaccine (#1) 2024 , 04/15/2021, 01/16/2019, Additional history exists Cervical Cancer Screening 03/13/2024 HPV/Cotest 03/13/2024 03/13/2019 Depression Screening 02/08/2025 02/09/2024, 02/09/20 24 SDOH Screening 02/08/2025 02/09/2024 Diabetes: Hemoglobin A1C 07/26/2025 025, 11/07/2023, 09/14/2022, Additional history exists Tobacco Screening 07/26/2025 07/26/2024 Lipid Panel 07/26/2029 07/26/2024, 072 06/2023, 11/07/2023, Additional history exists DTaP/Tdap/Td Vaccines (3 - Td or Tdap) 05/17/2033 05/17/2023, 01/02/2014 Zoster Vaccines (1 of 2) 2036 RSV Patients and Patients Aged 60 years or older (1 - 1-dose 75+ series) 2061 HIV Screening Completed 07/26/2024, 07/0 06/2023, 09/14/2022, Additional history exists Hepatitis C Screening Completed 07/26/2024 , 11/07/2023, 09/14/2022, Additional history exists HIB Vaccines Aged Out No longer eligi [...] age to complete this topic Meningococcal B Vaccine Aged Out No l onger eligible based on patient's age to complete [...] Procedure Name Priority Date/Time Associated Diagnosis Comments RPR (MONITOR) W/REFL TITER Routine 07/26/2024 12:54 PM EDT Essential hypertension Prediabetes Right renal artery stenosis (CMS/HCC) Allergic rhinitis, unspecified seasonality, unspecified trigger Leukocytosis, unspecified type Cubital tunnel syndrome on right Carpal tunnel syndrome of right wrist Chronic neck pain Chronic pain of right knee History of colitis Alternating constipation and diarrhea Wheezing Sleep-disordered breathing Healthcare maintenance BMI 40.0-44.9, adult (CMS/HCC) HEPATITIS C AB W/REFL TO HCV RNA, QN, PCR Routine 07/26/2024 12:54 PM EDT Essential hypertension Prediabetes Right renal artery stenosis (CMS/HCC) Allergic rhinitis, unspecified seasonality, unspecified trigger Leukocytosis, unspecified type Cubital tunnel syndrome on right Carpal tunnel syndrome of right wrist Chronic neck pain Chronic pain of right knee History of colitis Alternating constipation and diarrhea Wheezing Sleep-disordered breathing Healthcare maintenance BMI 40.0-44.9, adult (CMS/HCC) HIV 1/2 ANTIGEN/ANTIBODY, FOURTH GENERATION W/RFL Routine 07/26/2024 12:54 PM EDT Essential hypertension Prediabetes Right renal artery stenosis (CMS/HCC) Allergic rhinitis, unspecified seasonality, unspecified trigger Leukocytosis, unspecified type Cubital tunnel syndrome on right Carpal tunnel syndrome of right wrist Chronic neck pain Chronic pain of right knee History of colitis Alternating constipation and diarrhea Wheezing Sleep-disordered breathing Healthcare maintenance BMI 40.0-44.9, adult (CMS/HCC) CBC Routine 07/26/2024 12:54 PM EDT Essential hypertension Prediabetes Right renal artery stenosis (CMS/HCC) Allergic rhinitis, unspecified seasonality, unspecified trigger Leukocytosis, unspecified type Cubital tunnel syndrome on right Carpal tunnel syndrome of right wrist Chronic neck pain Chronic pain of right knee History of colitis Alternating constipation and diarrhea Wheezing Sleep-disordered breathing Healthcare maintenance BMI 40.0-44.9, adult (CMS/HCC) BASIC METABOLIC PANEL Routine 07/26/2024 12:54 PM EDT Essential hypertension Prediabetes Right renal artery stenosis (CMS/HCC) Allergic rhinitis, unspecified seasonality, unspecified trigger Leukocytosis, unspecified type Cubital tunnel syndrome on right Carpal tunnel syndrome of right wrist Chronic neck pain Chronic pain of right knee History of colitis Alternating constipation and diarrhea Wheezing Sleep-disordered breathing Healthcare maintenance BMI 40.0-44.9, adult (CMS/HCC) HEMOGLOBIN A1C Routine 07/26/2024 12:54 PM EDT Essential hypertension Prediabetes Right renal artery stenosis (CMS/HCC) Allergic rhinitis, unspecified seasonality, unspecified trigger Leukocytosis, unspecified type Cubital tunnel syndrome on right Carpal tunnel syndrome of right wrist Chronic neck pain Chronic pain of right knee History of colitis Alternating constipation and diarrhea Wheezing Sleep-disordered breathing Healthcare maintenance BMI 40.0-44.9, adult (CMS/HCC) HEPATIC FUNCTION PANEL Routine 07/26/2024 12:54 PM EDT Essential hypertension Prediabetes Right renal artery stenosis (CMS/HCC) Allergic rhinitis, unspecified seasonality, unspecified trigger Leukocytosis, unspecified type Cubital tunnel syndrome on right Carpal tunnel syndrome of right wrist Chronic neck pain Chronic pain of right knee History of colitis Alternating constipation and diarrhea Wheezing Sleep-disordered breathing Healthcare maintenance BMI 40.0-44.9, adult (CMS/HCC) TSH Routine 07/26/2024 12:54 PM EDT Essential hypertension Prediabetes Right renal artery stenosis (CMS/HCC) Allergic rhinitis, unspecified seasonality, unspecified trigger Leukocytosis, unspecified type Cubital tunnel syndrome on right Carpal tunnel syndrome of right wrist Chronic neck pain Chronic pain of right knee History of colitis Alternating constipation and diarrhea Wheezing Sleep-disordered breathing Healthcare maintenance BMI 40.0-44.9, adult (CMS/HCC) LIPID PANEL, STANDARD Routine 07/26/2024 12:54 PM EDT Essential hypertension Prediabetes Right renal artery stenosis (CMS/HCC) Allergic rhinitis, unspecified seasonality, unspecified trigger Leukocytosis, unspecified type Cubital tunnel syndrome on right Carpal tunnel syndrome of right wrist Chronic neck pain Chronic pain of right knee History of colitis Alternating constipation and diarrhea Wheezing Sleep-disordered breathing Healthcare maintenance BMI 40.0-44.9, adult ([facility]/HCC) VITAMIN D,25-OH,TOTAL,IA Routine 07/26/2024 12:54 PM EDT Essential hypertension Prediabetes Right renal artery stenosis (CMS/HCC) Allergic rhinitis, unspecified seasonality, unspecified trigger Leukocytosis, unspecified type Cubital tunnel syndrome on right Carpal tunnel syndrome of right wrist Chronic neck pain Chronic pain of right knee History of colitis Alternating constipation and diarrhea Wheezing Sleep-disordered breathing Healthcare maintenance BMI 40.0-44.9, adult (CMS/HCC) T4, FREE Routine 07/26/2024 12:54 PM EDT Essential hypertension Prediabetes Right renal artery stenosis (CMS/HCC) Allergic rhinitis, unspecified seasonality, unspecified trigger Leukocytosis, unspecified type Cubital tunnel syndrome on right Carpal tunnel syndrome of right wrist Chronic neck pain Chronic pain of right knee History of colitis Alternating constipation and diarrhea Wheezing Sleep-disordered breathing Healthcare maintenance BMI 40.0-44.9, adult (CMS/HCC) WendyZZ HISTORICAL HPV MRNA E6/E7 Routine 03/13/2019 2:45 PM EST from Last 3 Months or Most Recently Relevant to Health Maintenance Results * (ABNORMAL) Vitamin D, 25-Hydroxy, Total, Immunoassay (07/26/2024 12:54 PM EDT) Vitamin D 25-OH Total 15.4(L) >30 ng/mL [facility] Comment: Health Based Reference Values*< 20 ??ng/mL ??[id number] ng/mL ??Insufficient> 30 ??ng/mL ??Sufficient*Leia NORWOOD. N Engl J Med. 2007;357:266-280There is no well-established upper level of normal vitamin Dlevels. Some laboratories use 50 ng/mL as an upper limit ofnormal. However, toxicity is patient-dependent and may occurat any level. Careful correlation with the patient'spresentation is necessary and, if there is concern forvitamin D toxicity, treatment should be consideredirrespective of the serum level.Care must be taken in interpreting Vitamin D results fromdifferent laboratories and methodologies. ??Published datademonstrated that results from patients undergoinghemodialysis may show a negative bias when tested withvarious automated 25-OH vitamin D assays when compared toLC- MS/MS.When testing samples from patients whose predominant form ofVitamin D is Vitamin D2, such as patients receiving VitaminD2 supplementation, results that are subtherapeutic shouldbe confirmed with another method such as LC-MS/MS. Blood Venous blood specimen / Unknown 07/26/2024 12:54 PM EDT 07/26/2024 4:19 PM EDT Della Viera LAB BLOOD ORDERABLES Final R esult Performing Organization Address [facility]/ZIP Co de Phone Number [facility] [address] [place] [phone] * Hepatitis C Antibody with Reflex to HCV, RNA, Quantitative, Real-Time PCR (07/26/2024 12:54 PM EDT) Hepatitis C Antibody Nonreactive Nonreactive [facility] Comment:Antibodies to HCV no t detected; does not exclude early acuteHCV infection. Blood Venous blood specimen / Unknown 07/26/2024 12:54 PM EDT 07/26/2024 4:19 PM EDT Della Viera LAB BLOOD ORDERABLES Final R esult Performing Organization Address [facility] Co de Phone Number [facility] [address] [place] [address] [phone] * RPR (Monitor) with Reflex to??Titer (07/26/2024 12:54 PM EDT) RPR (Monitor) w/Refl Titer NON-REACTI VE NON-REACT EDI [facility] Comment:THIS TEST WAS PERFOR MED AT:[id number] [place] [phone] BURRELL MD Rapid Plasma Reagin Ab Titer TNP [facility] Blood Venous blood specimen / Unknown 07/26/2024 12:54 PM EDT 07/26/2024 4:19 PM EDT us Della Maximiliano LAB BLOOD ORDERABLES Final R esult Performing Organization Address City/[facility]/ZIP Co de Phone Number [facility] [address] [place] [phone] [phone] * HIV-1/2 Antigen and Antibodies, Fourth Generation, with Reflexes (07/26/2024 12:54 PM EDT) Pathologist [facility] HIV AB/AG Nonreactive Nonreactive [facility] Comment:HIV-1 p24 Ag and/or HIV-1/HIV-2 Ab not detected.A test result that is nonreactive does not exclude thepossibility of exposure to or infection with HIV-1 and/orHIV-2. Nonreactive results in this assay for individualswith prior exposure to HIV-1 and/or HIV-2 may be due toantigen and antibody levels that are below the limit ofdetection of this assay.The [employer] HIV Ag/Ab Combo assay result andsupplemental assay results should be interpreted inconjunction with the patient's clinical presentation,history and other laboratory results. If the results areinconsistent with clinical evidence, additional testing issuggested to confirm the result. Blood Venous blood specimen / Unknown 07/26/2024 12:54 PM EDT 07/26/2024 4:19 PM EDT us Della Maximiliano DO LAB BLOOD ORDERABLES Final R esult Performing Organization Address City/[facility]/ZIP Co de Phone Number [facility] [address] [place] [phone] * (ABNORMAL) CBC (07/26/2024 12:54 PM EDT) White Blood Count 11.8(H) 4.8 - 10.8 X10*3/uL [facility] Red Blood Count 4.86 4.20 - 5.50 X10*6/uL [facility] Hemoglobin 13.5 12.0 - 16.0 g/dl [facility] Hematocrit 41.9 37.0 - 47.0 % [facility] Mean Corpuscular Volume 86.2 80.0 - 98.0 fL [facility] Mean Corpuscular Hemoglobin 27.8 27.0 - 33.0 pg [facility] Mean Corpuscular HGB Conc 32.2 31.0 - 35.0 g/dl [facility] Red Cell Distribution Width 14.6 11.0 - 16.0 % [facility] Platelet Count 222 160 - 400 X10*3/uL [facility] Mean Platelet Volume 11.8 9.4 - 12.3 fL [facility] NRBC Pct Auto 0.0 0.0 - 0.2 /100WBC [facility] NRBC Abs Auto 0.000 0.0 - 0.012 X10*3/uL [facility] Blood Venous blood specimen / Unknown 07/26/2024 12:54 PM EDT 07/26/2024 4:19 PM EDT Della Viera DO LAB BLOOD ORDERABLES Final R esult [facility] [address] [place] [phone] * TSH (07/26/2024 12:54 PM EDT) Thyroid Stimulating Hormone 1.18 0.32 - 4.0 uIU/mL [facility] Comment:TSH 3rd Generation ( [facility] [facility]) Blood Venous blood specimen / Unknown 07/26/2024 12:54 PM EDT 07/26/2024 4:19 PM EDT Della Viera DO LAB BLOOD ORDERABLES Final R esult Performing Organization Address [facility]/ZIP Co de Phone Number [facility] [address] [place] [phone] * T4, Free (07/26/2024 12:54 PM EDT) Free T4 (Free Thyroxine) 1.00 0.71 - 1.85 ng/dL [facility] Blood Venous blood specimen / Unknown 07/26/2024 12:54 PM EDT 07/26/2024 4:19 PM EDT Della Viera [employer] LAB BLOOD ORDERABLES Final R esult Performing Organization Address [facility] Co de Phone Number [facility] [address] [place] [phone] * Hemoglobin A1c (07/26/2024 12:54 PM EDT) Hemoglobin A1c 5.9 <6.0 % [facility] Comment:Hemoglobin A1C Refer ence Range Adults: 4.8 - 6.0 % Non diabetic: < 6.0 % Goal: < 7.0 %Additional Action Suggested: > 8.0 %Note: Hemoglobin A1c results are invalid for patients with abnormal amounts of HbF. Blood transfusions may impact the HbA1c concentration in the patient sample. Estimated Average Glucose 123 mg/dL [facility] Comment:eAG = Estimated ave rage glucose which is %A1C expressed asaverage glucose, using the formula of the G1L-YyrsbtfMfcpnxn Glucose study (ADAG), Diabetes Care, Vol.31,#8,2007 Blood Venous blood specimen / Unknown 07/26/2024 12:54 PM EDT 07/26/2024 4:19 PM EDT Dellawalter Viera [employer] LAB BLOOD ORDERABLES Final R esult Performing Organization Address [facility] Co de Phone Number [facility] [address] [place] [phone] * (ABNORMAL) Hepatic Function Panel (07/26/2024 12:54 PM EDT) Bilirubin, Total 0.3 0.0 - 1.0 mg/dL [facility] Bilirubin, Direct 0.1 0.0 - 0.5 mg/dL [facility] Aspartate Amino Transferase 16 5 - 31 U/L [facility] Alanine Aminotransferase 19 0 - 31 U/L [facility] Total Protein 8.2(H) 6.5 - 8.0 g/dL [facility] Albumin Level 4.1 3.5 - 5.0 g/dL [facility] Alkaline Phosphatase 70 39 - 117 U/L [facility] Blood Venous blood specimen / Unknown 07/26/2024 12:54 PM EDT 07/26/2024 4:19 PM EDT us Della Viera DO LAB BLOOD ORDERABLES Final R esult [facility] [address] [place] [phone] * (ABNORMAL) Lipid Panel, Standard (07/26/2024 12:54 PM EDT) Triglycerides 84 <150 mg/dL [facility] Comment:Desirable Triglyceri de: less than 150 mg/dLBorderline High Triglyceride 150-199 mg/dLHigh Triglyceride: 200-499 mg/dLVery High Triglyceride: greater than or equal to 5OO mg/dL Cholesterol 174 <200 mg/dL [facility] Comment:Desirable Cholestero l: less than 200 mg/dLBorderline High Cholesterol: 200-239 mg/dLHigh Cholesterol: greater than 239 mg/dL LDL Cholesterol Calculated 104(H) <100 mg/dL [facility] Comment:Desirable LDL: less than 100 mg/dLNear Optimal/Above Optimal LDL: 110- 129 mg/dLBorderline High LDL: 130-159 mg/dLHigh LDL: 160-189 mg/dLVery High LDL: greater than or equal to 190 mg/dL HDL Cholesterol 54 >40 mg/dL [facility] Comment:Desirable HDL: great er than 40 mg/dL Note: This HDL assay may give artificially low results in patients with liver disease. Blood Venous blood specimen / Unknown 07/26/2024 12:54 PM EDT 07/26/2024 4:19 PM EDT Della Viera DO LAB BLOOD ORDERABLES Final R esult Performing Organization Address [facility]/ZIP Co de Phone Number [facility] [address] [place] [phone] * (ABNORMAL) Basic Metabolic Panel (07/26/2024 12:54 PM EDT) Sodium 137 135 - 145 mmol/L [facility] Potassium 4.1 3.3 - 5.1 mmol/L [facility] Chloride 104 96 - 108 mmol/L [facility] Carbon Dioxide 26 22 - 29 mmol/L [facility] Anion Gap 11(L) 12 - 20 [facility] Urea Nitrogen (BUN) 11 9 - 16 mg/dL [facility] Creatinine, Serum 0.72 0.5 - 1.4 mg/dL [facility] Estimated Glomerular Filt Rate >60 [facility] Comment:Chronic Kidney Disea se: Estimated GFR < 60 mL/min/[id number] Kidney Disease: Estimated GFR < 15 mL/min/1.73m2 Glucose 90 60 - 115 mg/dL [facility] Calcium 9.6 8.4 - 10.2 mg/dL [facility] Blood Venous blood specimen / Unknown 07/26/2024 12:54 PM EDT 07/26/2024 4:19 PM EDT us Della Viera DO LAB BLOOD ORDERABLES Final R esult Performing Organization Address [facility]/ZIP Co de Phone Number [facility] [address] [place] [phone] * HPV mRNA E6/E7 (03/13/2019 2:45 PM EST) HPV mRNA E6/E7 Not Detected NOT DETECTED [facility] Comment: This test was performed using the APTIMA(R) HPV Assay ([employer] This assay detects E6/E7 viral messenger RNA (mRNA) from 14 high-risk HPV types (16,18,31,33,35,39,45,51, 52,56,58,59,66,68). For additional information please refer to: http://education.[employer]faq/ZGX418y0 (This link is being provided for informational/ educational purposes only.) The analytical performance characteristics of this assay have been determined by [employer] [place], [place]. The modifications have not been cleared or approved by the FDA. This assay has been validated pursuant to the CLIA regulations and is used for clinical purposes. Test Performed by [facility], [facility], [address] [place] [address] Kaiden Luna M.D., Ph.D., Director of Laboratories , CLIA [id number] Please note: ??Effective 01/18/2016, HPV testing will be performed using [employer] APTIMA test which targets mRNA. Detecting mRNA instead of DNA, as in older methods, offers significant improvements in specificity. 03/13/2019 2:45 PM EST Татьяна Ponce CNM HISTORICAL/NON ORDERABLE LABS Final Result [facility] [address] from Last 3 Months or Most Recently Relevant to Health Maintenance [facility] Care Teams Lead Infrastructure Architect Relationship Specialty Start Date End Date Della Viera DO [address] [place] [phone] PCP - General Family Medicine 01/15/15
--- OUTSIDE RECORDS SUMMARY | 2024-09-23 13:43 | XMS_ITS | Clinical Summary ---
Author Organization [facility] ity Address [address] [place] [id number] Care Team Providers Care Migratory Worker Name Role Phone Della Viera DO Primary Care Provider [phone] Allergies No known active allergies Active Problems [...] AM EDT Office Visit Bariatric Surgery - [place] [address] [phone] Caleb Mathis MD 175 [facility] [address] [place] [address] Health Maintenance Due Date Last Done Comments DTaP,Tdap,and Td Vaccines (1 - Tdap) 2005 Hepatitis B Vaccines (1 of 3 - 19+ 3-dose series) 2005 Cervical Cancer Screening: P ap Smear 07/19/2007 Cholesterol Screening (Lipid Panel) 04/20/2022 Depression Screening 04/20/2022 HIV Screening 04/20/2022 Hepatitis C Screening 04/20/2022 Social Influencers of Health Screening 04/20/2022 Hypertension/CHF/CAD Annual BMP Blood Test 04/23/2022 COVID-19 Vaccine (2023-2 5 season) 2024 Influenza Vaccine (Season Ended) 2025 HIB Vaccines Aged Out No longer eligi [...] to complete this topic Insurance [place] - [place] Care Teams Migratory Worker Relationship Specialty Start Date End Date Della Viera DO [address] [place], [place] PCP - General Family Medicine 05/09/24
--- OUTSIDE RECORDS SUMMARY | 2024-09-23 13:44 | XMS_ITS | Encounter Summary ---
Author Organization [facility] Address [address] [place] [address] Phone Care Team Providers Care Driver Engineer Name Role Phone Della Viera DO Primary Care Provider Unava ilable Encounter Details Date Type Department Care Team (Late st Contact Info) Description 08/19/2021 Documentation Only [facility], [address] [place] [phone] Della Viera DO [address] [place] [address] Social History Tobacco Use Types Packs/Day Years [...] on filedocumented in this encounter Care Teams Driver Engineer Relationship Specialty Start Date End Date Della Viera DO PCP - General Family Medicine 08/19/21 documented as of this encounter
--- OUTSIDE RECORDS SUMMARY | 2024-09-23 13:44 | XMS_ITS | Clinical Summary ---
Author Organization [facility], Address [address] [place] [address] [place] [phone] Phone Care Team Providers Care Impregnating Machine Operator Name Role Phone Della Viera DO Primary [...] Influenza Vaccine (Season Ended) 2025 Pneumococcal Vaccine: Peds ( 0 to 5 Years) and At-Risk Patients (6 to 49 Years) Aged Out No longer eligible b ased on patient's age to complete this topic Insurance Medicaid [place] Care Teams Impregnating Machine Operator Relationship Specialty Start Date End Date Della Viera DO PCP - General Family Medicine 08/19/21
--- OUTSIDE RECORDS SUMMARY | 2024-09-23 13:44 | XMS_ITS | Encounter Summary ---
Author Organization [facility] Address [address] [facility] [address] [place] [address] Care Team Providers Care Technical Rep Name Role Phone Della Viera DO Primary Care Provider [phone] Reason for Visit * Reason Onset Date Comments Appointment Request 08/12/2022 Encounter Details Date Type Department Care Team (Late st Contact Info) Description 08/12/2022 Telephone [facility] [address] [place] [address] Della Viera DO [address] [place], [place] [phone] Appointment Request Social History Tobacco Use Types [...] a follow up. Please contact pt at [phone] documented in this encounter Plan of Treatment Not on file documented as of this encounter Visit Diagnoses Not on filedocumented in this encounter Care Teams Technical Rep Relationship Specialty Start Date End Date Della Viera DO [address] [place] [id number] PCP - General Family Medicine 01/15/15 documented as of this encounter
--- NOTE | 2024-09-23 13:53 | A.OFFVIS_ITS ---
Vital Signs 09/23/24 13:57 Height 5 ft 2 in Weight 220 lb BMI 40.2 BP 184/101 H Blood Pressure Location Lt brachial Position Sitting Pulse 91 Pulse Oximetry (%) 97 Oxygen Delivery Method Room Air Intake Visit Reasons: HX Colitis r/s 11/01/24 Intake Note: Patient new consult for Hx Colitis. Patient cc: N/V on and off, left abdominal pain/bloating on and off, pain on her intestine and anus, between diarrhea and constipation. Denies any other GI issues. Community Health Worker Required: No Accompanied by: Self / Same As Patient Allergies Seasonal Allergies Allergy (Intermediate, Verified 09/23/24 13:52) Nasal congestion naproxen [NAPROXEN] Allergy (Unknown, Verified 09/23/24 13:52) STOMACH PAIN, DIARRHEA, VOMITING HPI HPI HX Colitis r/s 11/01/24: Details: 31 years old female with past medical history of palpitations, proteinuria, spondylosis of cervical region without myelopathy or radiculopathy, hypertension is here today for initial consultation. Patient reports that she was diagnosed with colitis many years ago. Patient has been having abdominal pain LLQ, bloating and constipation. Patient reports occasional diarrhea. For the most part patient feels constipated. Unable to move her bowels well. PCP send her script for Colace. Patient reports that this is not helpful. Patient denies melena, hematochezia, unintentional weight loss or ribbon like stools. Patient is on Trulicity for weight loss. Patient is thinking about going to see bariatric surgeon to help her lose weight as she is at [facility] right now with her weight loss. Patient denies dyspepsia, dysphagia or odynophagia. Patient denies any acid reflux. Patient denies any mucus in her stools. [facility] Medical History (Updated 04/22/24 @ 09:49 by Juliana Luther RN) Marijuana use Asthma Obesity Palpitations Kienb?ck's disease Migraines Headache Hypertension Surgical History Hx of section History of tubal ligation Family History Family/Other No problems noted. 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 Review of Systems Const Denies weight gain and Denies weight loss ENT Reports no additional complaints, Denies dysphagia and Denies odynophagia Card Reports no additional complaints Resp Reports no additional complaints GI Reports abdominal pain (Cramping), Denies belching, Denies melena, Reports bloating, Denies change in bowel habits, Reports constipation, Denies dysphagia, Denies excessive flatus, Denies dyspepsia, Denies heartburn, Denies diarrhea, Denies loose stools, Denies nausea, Denies odynophagia and Denies vomiting Reports no additional complaints Musc Reports no additional complaints Neuro Reports no additional complaints Psych Reports no additional complaints Endo Reports no additional complaints Physical Exam Vital Signs: Last Vital Signs Pulse 91 09/23/24 13:57 BP 184/101 H 09/23/24 13:57 Pulse Ox 97 09/23/24 13:57 Oxygen Delivery Method Room Air 09/23/24 13:57 BMI result Body Mass Index 40.2 Const General: healthy appearing and no acute distress Nutritional Appearance: obese Orientation/consciousness: patient oriented x3 Resp Effort & Inspection: normal respiratory effort, able to speak in complete sentences, no tracheal deviation and symmetric chest movement Auscultation: clear to auscultation bilaterally Cardio Rate: regular rate GI Inspection: Yes normal to inspection, No distended and Yes obesity Palpation (GI): Soft to palpation, not firm, nontender and No hepatosplenomegaly present Auscultation: normal bowel sounds General: Yes no CVA tenderness Back/Spine/Pelvis Back: no CVA tenderness Skin General skin exam: elasticity normal, turgor normal and dry skin Neuro General: patient oriented x3 Psych Appearance: grossly normal Mental Status: mental status grossly normal Assessment & Plan Assessment & Plan (1) Constipation: Code(s): K59.00 - Constipation, unspecified Qualifiers: Constipation type: slow transit constipation Qualified Code(s): K59.01 - Slow transit constipation (2) Postprandial abdominal bloating: Code(s): R14.0 - Abdominal distension (gaseous) (3) Abdominal pain: Code(s): R10.9 - Unspecified abdominal pain Qualifiers: Abdominal location: epigastric Qualified Code(s): R10.13 - Epigastric pain (4) Postprandial epigastric pain: Code(s): R10.13 - Epigastric pain Plan Continue Colace, will add Senokot. Increase fluid intake and activity to promote better bowel motility. Avoid dietary triggers in late night snacking. Patient is on Trulicity her symptoms could be related to the medication. Patient may switch to Zepbound. Patient will try low FODMAP diet. List of food recommended as well as food to avoid given to patient. Will check transglutaminase. Patient will follow-up in 3 months, sooner on as needed basis. She is agreeable to this plan and verbalizes understanding of instructions. She was given the opportunity to ask questions and all questions answered. Thank you for allowing me to participate in her care Orders: Orders Transglutaminase IgA 09/23/24 R10.9 - Unspecified abdominal pain Medications: New sennosides (Natural Senna Laxative) 17.2 mg (2 x 8.6 mg) PO BEDTIME 60 tabs 3RF constipation K59.00 - Constipation, unspecified Coding Level of Care Code New Pt Level 3 (77158) Diagnoses Slow transit constipation K59.01 Constipation type: slow transit constipation Postprandial abdominal bloating R14.0 Epigastric pain R10.13 Abdominal location: epigastric Postprandial epigastric pain R10.13 Time Spent (min) 40 Comment 30 minutes spent with patient and additional 10 minutes spent reviewing her records
[2024-09-23 13:57] VITALS: BP 184/101; PULSE 91; O2SAT 97; BMI 40.2
== END 2024-09-23 14:25 | disposition home or self-care (01) ==
LOC: HO.HGI 13:40
PROVIDERS: PCP Family Medicine; Visit Provider Nurse Practitioner Family
DX: K59.01 Slow transit constipation (principal); R14.0 Abdominal distension (gaseous); R10.13 Epigastric pain
CPT/HCPCS: 99203

== ENCOUNTER → 2024-09-23 13:40 | Outpatient (BNVA) | payer MEDICAID, SELFPAY | PROVIDERS: PCP Family Medicine; Visit Provider Nurse Practitioner Family | DX: K59.01 Slow transit constipation (principal); R14.0 Abdominal distension (gaseous); R10.13 Epigastric pain | CPT/HCPCS: 99212 ==